=== PATIENT | female | born 1940 | race Caucasian/White ===

== ENCOUNTER 2020-04-22 09:01 | Outpatient (CLI) | payer MEDICARE, SELFPAY ==
--- NOTE | 2020-04-22 09:14 | MM_ITS ---
WS: [id number] BILATERAL DIGITAL DIAGNOSTIC MAMMOGRAM MAMMOGRAPHY WITH CAD CLINICAL INFORMATION: HX OF BREAST CA HISTORY: COMPARISON: TECHNIQUE: Bilateral CC, MLO, and ML views. FINDINGS: Scattered fibroglandular densities bilaterally. Stable ovoid nodular density or intramammary lymph n ode right axillary tail. Stable trabecular thickening left breast likely due to prior radiation thera py. No suspicious focal mass, asymmetry, calcifications, or architectural distortion. No evidence of maday gnancy. MM/[place] [id number] IMPRESSION: BI-RADS: 2-Benign FOLLOW UP: 1 Year Follow-up Recommend return to annual diagnostic mammography.
== END 2020-04-22 09:02 | disposition home or self-care (01) ==
LOC: RADSHAW 09:08
PROVIDERS: PCP Family Medicine; Visit Provider Internal Medicine Hematology & Oncology
DX: Z85.3 Personal history of malignant neoplasm of breast (principal)
CPT/HCPCS: 77066

== ENCOUNTER 2020-04-26 09:16 | Outpatient (CLI) | payer MEDICARE, SELFPAY ==
--- NOTE | 2020-04-26 10:17 | ONC FU_ITS ---
Dr. Finley follow up note Patient: Stephanie Sin Unit #: [id number]: [id number] Dicatated By: Holland Finley M.D.Date of Visit:Apr 26, 2020 Onc Med Follow-up/Prog Note History of Present Illness: Mrs. 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 Patient tolerated procedure well. As per patient her routine follow-up mammogram showed an abnormal area for which on 03/16/2018 she underwent biopsy which was suspicious for intraductal papillary carcinoma No history of postmenopausal hormone or contraceptive use, she had 6 pregnancies 5 live births Status post postlumpectomy radiation therapy finished on 07/04/2018 Started on Arimidex/vitamin D/calcium for 5 years on 05/09/2018 Follow-up mammogram done on 06/20/2019 showed BI-RADS 2-benign Follow-up mammogram done on April 22, 2020 showed BI-RADS 2, benign Came for follow-up, denies any specific complaints except generalized weakness and fatigue, but no fever chills, no nausea or vomiting, no diarrhea or constipation, no weight loss rather gained . No new bony pains, no jaundice, no new musculoskeletal pain tolerating Arimidex well . Medications: Acidophilus Capsule Oral, Anastrozole 1 (1 mg) Tablet Oral daily, B-12 3 (1000 mcg) Tablet Oral daily, B-50 1 Tablet Oral daily, C 500 Tablet Oral, Calcium & Magnesium Carbonates Tablet Oral, Felodipine ER 1 Tablet (of 5 mg) Tablet SR 24 HR Oral b.i.d., High Energy Multi-Vitamin Capsule, Labetalol HCl 1 Tablet (of 200 mg) Oral b.i.d., Losartan Potassium 1 Tablet (of 100 mg) Oral daily Allergies: antidepressants, latex, Librium, and Penicillins. Review of Systems: Constitutional - Appetite is good and weight is stable. No fever, chills, hot flashes, or night sweats. Energy level is still poor, ENMT - No sinus congestion/drainage. No mouth sores. No sore throat or difficulty swallowing, Hematologic/Lymphatic - No abnormal bruising or bleeding, Respiratory - Patient has some shortness of breath with exertion. No cough. No pleuritic pain or hemoptysis, Cardiovascular - No angina pain. No palpitations, Gastrointestinal - No nausea or vomiting. No heartburn or acid reflux. No diarrhea or constipation. No blood in the stool or black stools, Genitourinary (F) - No dysuria or hematuria. No urinary frequency. No urgency or incontinence, Musculoskeletal - No joint or bone pain, Neurologic - No headache, occasional dizziness. No numbness/paresthesias or other focal neurologic symptoms, Psychiatric - No anxiety or depression. No insomnia. Vital Signs: Performed on Apr 26, 2020 09:32 Height - 60.00 in Weight - 168.2 lbs (LOW) BSA - 1.73 sq.m BMI - 32.85 (HIGH) Temperature - 98.9 F (HIGH) Pulse - 71 /min Respiration - 15 /min BP - 156/81 mm(hg) (HIGH) O2 Sat - 94 % (LOW) Pain - 0 Performance Status: 0 - Fully active, able to carry on all predisease activities without restrictions. (ECOG) Physical Examination: Respiratory - Lungs are clear to auscultation, Cardiovascular - Regular rate and rhythm of heart, Gastrointestinal - Soft, bowel sounds present, no rebound tenderness, Extremities - No visible edema or rash. Lab/Imaging: Most recent lab results are not available for this patient. 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 Final pathology shows DCIS 0.5 x 0.4 cm, cribriform/papillary histologic growth pattern margins clear but inferior margin within 1 mm ER 98%, AZ 97% Tis (DCIS),N0 stage 0 Started on Arimidex 1 mg daily for 5 years, on 05/09/2018 s/p postlumpectomy radiation therapy finished on 07/04/18 Plan: Discussed with patient regarding her concern questions, patient is tolerating adjuvant therapy with Arimidex well but her concern is about persistent generalized weakness and fatigue, could be due to Arimidex but most likely it appears, considering her weight and height she may have sleep apnea, she was recommended sleep study but she declined as she may benefit from CPAP machine. She was advised to discuss with PMD regarding sleep study, patient said she would think about. And her follow-up mammogram showed no new abnormality. She return to clinic in 6 months with CBC CMP Signed By: Holland Finley M.D. <<Signature on File>>
== END 2020-04-26 09:17 | disposition home or self-care (01) ==
LOC: ONCMED 09:23
PROVIDERS: PCP Family Medicine; Visit Provider Internal Medicine Hematology & Oncology
DX: C50.112 Malignant neoplasm of central portion of left female breast (principal); R53.1 Weakness; R53.83 Other fatigue; Z17.0 Estrogen receptor positive status [ER+]; Z79.811 Long term (current) use of aromatase inhibitors
CPT/HCPCS: 99214

== ENCOUNTER 2020-06-28 08:21 | Outpatient (CLI) | payer MEDICARE, SELFPAY ==
--- NOTE | 2020-06-28 08:27 | CT_ITS ---
WS: [id number] CT ABDOMEN AND PELVIS WITH CONTRAST HISTORY: right upper quadrant pain and hernia TECHNIQUE: Imaging performed of the abdomen and pelvis with IV contrast. Single phase imaging of the abdomen. Coronal and sagittal reformats are submitted. All CT scans at [facility] use at least one of these dose optimization techniques: automated exposure control; mA and/or kV adjustment per patient size (includes targeted exams where dose is matched to clinical indication); or iterativ e reconstruction. IV CONTRAST: Omnipaque 300; 95 mL IV. Oral contrast: Yes. DLP: 1020.66 mGycm COMPARISON: None available. Lower thorax: Lung bases are clear. Mild cardiomegaly. Small hiatal hernia. Liver/biliary system: Normal size liver. 6 mm cyst along the surface of the LEFT lobe. No bile duct d ilatation. Gallbladder: Normal. No gallstones or wall thickening. No pericholecystic fluid. Pancreas: Normal size pancreas. Head and uncinate process of the pancreas are due to displaced anteri ariane due to intra-abdominal contents being displaced to the hernia sac. Pancreas remains within the a bdominal cavity. Spleen: Normal. Adrenal glands: Normal. Right kidney: Large simple cyst anterior upper RIGHT kidney measures 8.1 x 7.7 cm. No nodularity or e nhancement. Left kidney: Normal. Aorta: Mild atherosclerosis with no aneurysm. Lymphadenopathy: None. Free fluid: None. GI tract and abdominal wall: Large ventral abdominal wall hernias. Large ventral abdominal wall herni a at the midline contains the antrum of the stomach, colon and small bowel. Appendix is probably with in this hernia sac but cannot be identified. No ischemic changes are evident. The orifice of the jian ia at the abdominal wall is 7.4 cm. There is an additional ventral abdominal wall hernia more inferio r with an orifice of 2.0 cm. This hernia also contains colon and omental fat. No ischemic changes or strangulation. The RIGHT colon is contained within the larger hernia is and majority of the transver se colon is also within the hernia sacs. Pelvis: Normal. Bones: LEFT convex curvature of the lumbar spine. Degenerative disc space narrowing and desiccation. No osteoblastic or osteolytic disease. CT/CT abdomen pelvis w con* [id number] IMPRESSION: 1. Large ventral abdominal wall hernias x2. The larger more superior hernia co ntains stomach, small bowel and colon. No ischemic changes or incarceration. 2. Smaller ventral abdominal wall hernia contains colon. 3. Large RIGHT hepatic cyst.
[2020-06-28] MEDS: iohexol 300 mg/mL 50 mL Btl PO (09:21)
[2020-06-28 09:50] LABS: Blood Urea Nitrogen 12 mg/dL (8-23)
[2020-06-28] MEDS: iohexol 300 mg/mL 100 mL Btl IV (10:23)
== END 2020-06-28 08:22 | disposition home or self-care (01) ==
PROVIDERS: PCP Family Medicine; Visit Provider Surgery
DX: K43.9 Ventral hernia without obstruction or gangrene (principal); R10.11 Right upper quadrant pain; K76.89 Other specified diseases of liver
CPT/HCPCS: 74177; 82565; 84520; Q9967

== ENCOUNTER 2020-07-19 07:34 | Outpatient (CLI) | payer MEDICARE, SELFPAY ==
--- NOTE | 2020-07-19 08:00 | US_ITS ---
WS: [id number] RIGHT UPPER QUADRANT ULTRASOUND HISTORY: abdominal pain COMPARISON: None available. Liver: 17.1 cm in length. Mildly enlarged liver. Mild hepatic steatosis. No mass or bile duct dilatat ion. Gallbladder: Normally distended gallbladder with no stones or wall thickening. CBD: 0.4 cm Pancreas: Poorly visualized. Right kidney: 9.4 cm in length. Normal size kidney. There is a large minimally complex cyst associate d with the anterior kidney measuring 9.6 x 7.8 x 7.8 cm. Aorta and IVC: Unremarkable abdominal aorta and IVC. No ascites. US/US gall bladder [id number] IMPRESSION: 1. Normal gallbladder. 2. Large minimally complex RIGHT renal cyst. 3. Mild hepatic steatosis and hepatomegaly.
== END 2020-07-19 07:35 | disposition home or self-care (01) ==
PROVIDERS: PCP Family Medicine; Visit Provider Surgery
DX: R10.9 Unspecified abdominal pain (principal); Q61.01 Congenital single renal cyst; K76.0 Fatty (change of) liver, not elsewhere classified; R16.0 Hepatomegaly, not elsewhere classified
CPT/HCPCS: 76705; 87635

== ENCOUNTER 2020-07-23 05:53 | Day surgery (SDC) | payer MEDICARE, SELFPAY ==
[2020-07-19 12:33] VITALS: BMI 31.8
[2020-07-23 06:05] VITALS: BP 141/76; PULSE 74; RESP 18; TEMP 37; O2SAT 90
[2020-07-23] MEDS: sodium chloride 0.9% 500 ML 999 ML IV (06:25)
--- NOTE | 2020-07-23 06:28 | P.ANESASSM_ITS ---
Pre-Anesthetic Assessment Pre-Anesthetic Assessment: Height/Weight: Height 1.52 m Weight 73.936 kg Temp Pulse Resp BP Pulse Ox 98.6 F 74 18 141/76 90 07/23/20 06:05 07/23/20 06:05 07/23/20 06:05 07/23/20 06:05 07/23/20 06:05 Preop Diagnosis: screening Proposed Procedure: Operation Date: 07/23/20 07:00 Proposed Procedures p Colonoscopy 98323 Z12.11(Not Applicable) - Toan Mosley MD Familial anesthetic complications: NOne Was Beta Angela taken within 24 hours: Yes Last intake: Intake Last Liquid Date 07/22/20 Last Liquid Time 20:00 Last Solid Date 07/21/20 Last Solid Time 20:00 Social: Social History: No alcohol and No tobacco Exam: Pre-Anes Outpt Exam: alert, oriented x 3, clear to auscultation bilaterally and regular rate & rhythm Additional Exam Findings (including area of procedure): light murmur Airway: Cervical ROM: WNL MP: 4 Dentition: Full and Other (decayed) CV/HEM: CV/HEM: HTN Comments: Was told she had 2 leaky valves in her 60s b ut that they weren't bad - no episodes of syncope, chest pain, or SOB Anesthetic Plan: ASA status: 2 PFSH Anesthesia PFSH: Medical History Anemia Breast cancer, left H/O nonmelanoma skin cancer Hyperlipidemia Hypertension Surgical History H/O basal cell carcinoma excision H/O partial mastectomy left History of tonsillectomy Family History Grandmother Cancer breast Mother Cancer ovarian Father Hypertension Stroke Denies family history of Anesthesia complication Bleeding disorder Social History Smoking and tobacco status: never smoked Alcohol intake: never Lives independently: Yes Marital status: Single Current occupational status: retired History of recent travel: No Data Anesthesia Cardiac Studies: No Data to Display
[2020-07-23 07:22] VITALS: BP 128/61; PULSE 55; RESP 16; TEMP 36.6; O2SAT 96
--- NOTE | 2020-07-23 07:25 | W.PM.OPSUD ---
Surgery/Procedure H&P Update DATE OF PROCEDURE: July 23, 2020 DATE H&P PERFORMED: 07/02/20 H&P UPDATE INFORMATION: I have reviewed H&P completed within last 30 days, I have examined patient prior to procedure and No changes to prior documentation PREOP DIAGNOSIS: screening PLANNED PROCEDURE: Operation Date: 07/23/20 07:00 Proposed Procedures p Colonoscopy 39928 Z12.11(Not Applicable) - Toan Mosley MD
[2020-07-23 07:39] VITALS: BP 148/70; PULSE 55; RESP 18; O2SAT 96
--- NOTE | 2020-07-23 08:06 | ANE.PACU2 ---
Inpatient post-anesthesia follow up: Airway intact: Yes Vital signs: Temperature 97.8 F Pulse Rate 55 Respiratory Rate 18 Blood Pressure 148/70 Pulse Oximetry 96 Oxygen Delivery Me thod Room Air Oxygen Flow Rate 2 Fraction of Inspir ed Oxygen Hydration adequate: Yes Nausea and vomiting: No Pain level: 2 Mental status: Baseline
== END 2020-07-23 07:58 | disposition home or self-care (01) ==
PROVIDERS: PCP Family Medicine; Visit Provider Surgery
PROC: 0DJD8ZZ Inspection of Lower Intestinal Tract, Via Natural or Artificial Opening Endoscopic (ICD-10-PCS; CPT 45378; principal; 2020-07-23 07:00)
DX: Z12.11 Encounter for screening for malignant neoplasm of colon (principal); D12.3 Benign neoplasm of transverse colon; I10 Essential (primary) hypertension; Z85.3 Personal history of malignant neoplasm of breast; E78.5 Hyperlipidemia, unspecified
CPT/HCPCS: 12345; 45380; 88305; J2704; J7040

== ENCOUNTER 2020-07-29 07:53 | Outpatient (CLI) | payer MEDICARE, SELFPAY ==
--- NOTE | 2020-07-29 08:30 | FL_ITS ---
WS: [id number] INDICATION: Incomplete colonoscopy TECHNIQUE: Single contrast barium enema FINDINGS: Comparison CT abdomen pelvis June 28, 2020. Exam is somewhat limited due to large vent ral abdominal wall hernia with overlapping bowel Tortuous sigmoid colon. Bilobed ventral abdominal wall hernia containing large and small bowel. Taper ed narrowing involving the colon at the area of herniation in the right side of the abdomen. Delayed contrast transit through the area of stricture. Contrast transits this area after 2 to 3 minutes and additional barium. Remainder of the colon distal to the stricture fills normally. Normal cecum. No other areas of strict ure or obstruction. No suspicious filling defects. Normal postevacuation images. Osteopenia. Lumbar scoliosis convex left. FL/FL barium enema [id number] IMPRESSION: 1. Somewhat limited examination due to large ventral abdominal wall hernia con taining small and large bowel. 2. Moderate stricture involving the right colon with delayed contrast transit which passes after 2 to 3 minutes and additional barium. 3. Normal filling of the remainder of the colon and cecum in the hernia. 4. Otherwise no filling defects or areas of stricturing.
== END 2020-07-29 07:54 | disposition home or self-care (01) ==
PROVIDERS: PCP Family Medicine; Visit Provider Surgery
DX: R93.3 Abnormal findings on diagnostic imaging of other parts of digestive tract (principal); K56.699 Other intestinal obstruction unspecified as to partial versus complete obstruction
CPT/HCPCS: 74270

== ENCOUNTER 2020-08-06 07:55 | Outpatient (CLI) | payer MEDICARE, SELFPAY ==
--- NOTE | 2020-08-06 08:01 | NM_ITS ---
WS: [id number] NUCLEAR MEDICINE HIDA SCAN CLINICAL INFORMATION: right upper quadrant pain TECHNIQUE: Following intravenous administration of 8.4 mCi of technetium 99m mebrofenin, images of th e abdomen were obtained over the course of 60 minutes. Next, gallbladder ejection fraction was determ ined by obtaining preprandial and one-hour postprandial images of the gallbladder following oral deann stion of Ensure. COMPARISON: None. FINDINGS: Normal hepatic uptake at 5 minutes. Hepatomegaly. Gallbladder is visualized within 15 minutes. Normal common bile duct. No evidence of acute cholecystitis. Small bowel activity is visualized. No evidenc e of choledocholithiasis. Gallbladder ejection fraction 29% consistent with impaired emptying. Findings compatible with gallbla dder dysfunction and suspicious for chronic cholecystitis NM/NM hepatobiliary w phar* [id number] IMPRESSION: 1. Decreased gallbladder ejection fraction suspicious for gallbladder dysfunct ion and/or chronic cholecystitis.
== END 2020-08-06 07:56 | disposition home or self-care (01) ==
LOC: NM 07:57
PROVIDERS: PCP Family Medicine; Visit Provider Surgery
DX: R10.11 Right upper quadrant pain (principal)
CPT/HCPCS: 78227; A9537

== ENCOUNTER → 2020-10-16 10:24 | Outpatient (BNVA) | payer MEDICARE, SELFPAY | PROVIDERS: PCP Family Medicine; Visit Provider Surgery | DX: Z11.59 Encounter for screening for other viral diseases (principal); K43.9 Ventral hernia without obstruction or gangrene | CPT/HCPCS: 87635 ==

== ENCOUNTER 2020-10-21 10:32 | Inpatient (IN) | payer MEDICARE, SELFPAY ==
[2020-10-16 08:48] VITALS: BMI 32.2
[2020-10-16 09:58] LABS: Basophils # 0.1 10^3/uL (0.0-0.1); Basophils % 0.7 %; Eosinophils # 0.3 10^3/uL (0.0-0.8); Eosinophils % 3.7 %; Hematocrit 42.4 % (37.0-47.0); Hemoglobin 13.1 g/dL (11.5-15.3); Lymphocytes # 1.5 10^3/uL (0.8-4.8); Lymphocytes % 20.1 %; Mean Corpuscular HGB Conc 30.9 g/dL (30.0-36.0); Mean Corpuscular Hemoglobin 28.4 pg (28.0-34.0); Mean Corpuscular Volume 91.8 fL (81-99); Mean Platelet Volume 12.2 fL (7.4-10.4); Monocytes # 0.5 10^3/uL (0.2-0.9); Monocytes % 6.3 %; Neutrophils # 5.06 10^3/uL (1.8-7.7); Neutrophils % 68.9 %; Nucleated Red Blood Cells % 0 %; Platelet Count 231 10^3/cmm (130-400); Red Blood Count 4.62 10^6/uL (4.1-5.3); Red Cell Distribution Width 12.8 % (12.1-15.1); White Blood Count 7.3 10^3/uL (4.0-10.0)
[2020-10-16 10:23] LABS: Anion Gap 12.1 (5-19); Blood Urea Nitrogen 18 mg/dL (8-23); Calcium 9.8 mg/dL (8.5-10.5); Carbon Dioxide 32 mmol/L (22-29); Chloride 97 mmol/L (98-107); Glucose 109 mg/dL (65-115); Osmolality Calculated 286 mOsm/kg (285-295); Potassium 4.1 mmol/L (3.5-5.1); Sodium 137 mmol/L (136-145)
--- NOTE | 2020-10-16 11:54 | P.ANESASSM_ITS ---
Pre-Anesthetic Assessment Pre-Anesthetic Assessment: Height/Weight: Height 1.52 m Weight 74.843 kg Preop Diagnosis: screening Proposed Procedure: Operation Date: 10/21/20 07:00 Proposed Procedures p Cholecystectomy Open [id number] 92861 K810.20 K43.2(Not Applicable) - Toan Mosley MD s open Incisional Hernia Repair w/ component separation and Mesh(Not Applicable) - Toan Mosley MD Was Beta Angela taken within 24 hours: Yes Social: Social History: No alcohol and No tobacco Exam: Pre-Anes Outpt Exam: alert, oriented x 3, clear to auscultation bilaterally and regular rate & rhythm Airway: Submandibular: WNL Cervical ROM: WNL MP: 2 Dentition: Full Pulmonary: Pulmonary: None reported CV/HEM: CV/HEM: HTN : : None reported Hepatic: Hepatic: None reported GI: GI: GERD Metabolic: Metabolic: None reported Musc/skel: Musc/skel: None reported Neuropsych: Neuropsych: None reported Anesthetic Plan: ASA status: 3 Anesthesia: General and Regional (specify below) Other: Discussed possibility of epidural for post op pain vs TAP blk. Risk of > 500 ml blood loss (7ml/kg in children): No PFSH Anesthesia PFSH: Medical History (Updated 09/10/20 @ 09:30 by Bj Pozo MD) Anemia Breast cancer, left H/O nonmelanoma skin cancer Hyperlipidemia Hypertension Renal cyst Surgical History H/O basal cell carcinoma excision H/O partial mastectomy left History of colonoscopy with polypectomy (07/23/20) History of tonsillectomy Family History Grandmother Cancer breast Mother Cancer ovarian Father Hypertension Stroke Denies family history of Anesthesia complication Bleeding disorder Social History Smoking and tobacco status: never smoked Alcohol intake: never Lives independently: Yes Marital status: Single Current occupational status: retired History of recent travel: No Data Anesthesia CBC & Chem 7: 10/16/20 09:20 10/16/20 09:20 Other Labs: Laboratory Results - last 48 hr 10/16/20 10/16/20 09:20 09:20 WBC 7.3 RBC 4.62 Hgb 13.1 Hct 42.4 MCV 91.8 MCH 28.4 MCHC 30.9 RDW 12.8 Plt Count 231 MPV 12.2 H Neut % (Auto) 68.9 Lymph % (Auto) 20.1 [place] % (Auto) 6.3 Eos % (Auto) 3.7 Baso % (Auto) 0.7 Neut # (Auto) 5.06 Lymph # (Auto) 1.5 [place] # (Auto) 0.5 Eos # (Auto) 0.3 Baso # (Auto) 0.1 Nucleated RBC % (auto) 0 Nucleated RBCs # 0.0 Sodium 137 Potassium 4.1 Chloride 97 L Carbon Dioxide 32 H Anion Gap 12.1 BUN 18 Creatinine 0.6 GFR Calculation Not Reportable Glucose 109 Calculated Osmolality 286 Calcium 9.8 Cardiac Studies: No Data to Display
--- NOTE | 2020-10-16 13:34 | ECG_ITS ---
[facility] Test Date: 2020-10-16 Pat Name: Stephanie Sin Department: Room: Gender: Female Hide Spreader: : 1940 Requested By: Toan Mosley Order Number: [id number] Williams MD: Mali Deluca M.D. Measurements Intervals [place] Rate: 64 P: 63 IN: 212 QRS: 18 QRSD: 89 T: 53 QT: 425 QTc: 439 Interpretive Statements SINUS RHYTHM WITH FIRST DEGREE AV BLOCK Compared to ECG 04/15/2018 10:40:03 Sinus bradycardia no longer present Electronically Signed On 10-16-2020 19:22:[address]PRE[address] by Mali Deluca M.D. [id number] f
[2020-10-21] VITALS (26 sets, daily range): BP systolic 83–171; BP diastolic 42–107; PULSE 64–85; RESP 16–22; TEMP 36.2–37.2; O2SAT 89–98
--- NOTE | 2020-10-21 07:41 | P.HP_ITS ---
Providers/Chief Complaint Primary Care Provider: Mabel Cid MD Chief Complaint: cholecystectomy and hernia repair request dr quiles History of Present Illness Stephanie Sin is a 80 year old female evaluated early September 2020 for large right renal cyst and patient with a huge anterior abdominal wall hernia scheduled to undergo repair. The concern was that the volume of the cyst would be taking up a lot of room making it more difficult to restore hernia contents back into the abdominal cavity. Dr. Mosley requested treatment of the cyst to help increase capacity of abdominal cavity. All of this was reviewed with the patient in detail. She agreed to the plan. We reviewed sequencing and he is planning on performing abdominal exploration, church of the hernia contents back into abdominal cavity and cyst treatment. Anticipate cyst wall excision over aspiration with marsupialization as needed. Review of Systems Const: Denies: fever(s), chills or fatigue Eyes: Denies: change in vision or decreased night vision Card: Denies: chest pain Resp: Denies: dyspnea or non-productive cough GI: Denies: abdominal pain or constipation : Denies: urinary frequency or urinary urgency Musc: Denies: neck pain, back pain or joint pain Skin/Breast: Denies: rash or dry skin Psych: Denies: anxiety, depression or suicidal ideation [place]/Lymph: Denies: easy bruising or easy bleeding Medications/Allergies Home Medications Medication Instructions Recorded Confirmed Last Taken Type anastrozole 1 mg tablet 1 mg PO DAILY 04/29/20 10/21/20 10/20/20 History calcium carbonate 600 mg calcium 1,200 mg PO DAILY tab 04/29/20 10/21/20 10/20/20 History (1,500 mg) tablet felodipine 5 mg tablet,extended 10 mg PO DAILY tab 04/29/20 10/21/20 10/20/20 History release 24 hr labetalol 200 mg tablet 200 mg PO BID 04/29/20 10/21/20 10/21/20 History losartan 100 mg tablet 100 mg PO DAILY 04/29/20 10/21/20 10/21/20 History magnesium 250 mg tablet 250 mg PO DAILY 04/29/20 10/21/20 10/20/20 History multivitamin 1 tab PO DAILY 04/29/20 10/21/20 10/20/20 History vitamin B complex 1 tab PO DAILY 04/29/20 10/21/20 10/20/20 History pantoprazole 40 mg tablet,delayed See Rx Instructions .ROUTE 09/05/20 10/21/20 10/20/20 Rx release .COMPLEX #60 tab Allergies Allergy/AdvReac Type Severity Reaction Status Date / Time chlordiazepoxide Allergy ALGY-Anaphy Verified 10/15/20 16:24 [From Librium] laxis Penicillins Allergy ALGY-Rash Verified 10/15/20 16:24 PFSH Acute PFSH: Medical History (Updated 10/21/20 @ 07:46 by Bj Pozo MD) Anemia Breast cancer, left H/O nonmelanoma skin cancer Hyperlipidemia Hypertension Renal cyst Surgical History H/O basal cell carcinoma excision H/O partial mastectomy left History of colonoscopy with polypectomy (07/23/20) History of tonsillectomy Family History Grandmother Cancer breast Mother Cancer ovarian Father Hypertension Stroke Denies family history of Anesthesia complication Bleeding disorder Social History Smoking and tobacco status: never smoked Alcohol intake: never Lives independently: Yes Marital status: Single Current occupational status: retired History of recent travel: No Physical Exam Const: COMMON NORMALS: no acute distress and patient oriented x3 GENERAL APPEARANCE: cooperative, comfortable and well kempt NUTRITIONAL APPEARANCE: obese morbidly obese HENMT: HEAD & SCALP: normocephalic and atraumatic Eye: COMMON NORMALS: conjunctivae normal and no scleral icterus Neck/C-Spine: COMMON NORMALS: full ROM GENERAL: Yes normal visual inspection Resp: COMMON NORMALS: normal respiratory effort EFFORT & INSPECTION: No labored and No Actively coughing Extremity: COMMON NORMALS: no clubbing, cyanosis or edema Neuro: COMMON NORMALS: no focal motor deficits SENSORIUM/ORIENTATION: Yes alert Psych: COMMON NORMALS: mental status grossly normal APPEARANCE: Yes grossly normal and Yes well kempt ATTITUDE: Yes calm and Yes engaged Skin: COMMON NORMALS: no rashes or lesions noted and no jaundice Data : 10/16/20 09:20 10/16/20 09:20 A&P Assessment and plan (1) Renal cyst: Space-occupying right renal cyst the patient with huge ventral hernia with most of the bowel contents in the hernia. Request was made for cyst excision to allow more space intra-abdominally for hernia contents to be restored. Status: Acute Attestations Medical Necessity Statement*: See attending. Coding Level of Care Code Acute Primary Teaching Assistant for g Fwd Exam Comprehensive Diagnoses Renal cyst N28.1
[2020-10-21] MEDS: sodium chloride 0.9% 1,000 ML 30 ML IV (10:00)
--- NOTE | 2020-10-21 10:20 | W.PM.OPSUD ---
Surgery/Procedure H&P Update DATE OF PROCEDURE: October 21, 2020 DATE H&P PERFORMED: 10/15/20 H&P UPDATE INFORMATION: I have reviewed H&P completed within last 30 days, I have examined patient prior to procedure and No changes to prior documentation PREOP DIAGNOSIS: ventral hernia PLANNED PROCEDURE: Operation Date: 10/21/20 10:55 Proposed Procedures p Cholecystectomy Open [id number] 02979 K810.20 K43.2(Not Applicable) - Toan Mosley MD s open Incisional Hernia Repair w/ component separation and Mesh, abd wall reconstruction(Not Applicable) - Toan Mosley MD
[2020-10-21] MEDS: midazolam 1 mg/mL INJ 2 mL 2 MG IVP (10:45)
[2020-10-21] MEDS: fentaNYL 50 mcg/mL INJ 2mL IVP ×2 (10:47→16:53)
--- NOTE | 2020-10-21 10:59 | P.ANESUD_ITS ---
Pre-Anesthetic Update Pre-Anesthetic Assessment: Date of Surgery/Procedure: 10/21/20 Preop Karen gnosis: ventral hernia Proposed Procedure: Operation Date: 10/21/20 10:55 Proposed Procedures p Cholecystectomy Open [id number] 19637 K810.20 K43.2(Not Applicable) - Toan Mosley MD s open Incisional Hernia Repair w/ component separation and Mesh, abd wall reconstruction(Not Applicable) - Toan Mosley MD Any changes to Pre-Anesthetic Assessment?: No Last Intake: Intake Last Liquid Date 10/20/20 Last Liquid Time 21:00 Last Solid Date 10/18/20 Last Solid Time 18:00 Vitals: Temperature 97.6 F 10/21/20 09:51 Pulse Rate 68 10/21/20 09:51 Respiratory Rate 18 10/21/20 09:51 Blood Pressure 171/82 10/21/20 09:51 Blood Pressure Jossie n 111 10/21/20 09:51 Pulse Oximetry 96 10/21/20 09:51 Oxygen Delivery Me thod 10/21/20 09:56 Exam: Pre-Anes Outpt Exam: alert, oriented x 3, clear to auscultation bilaterally and regular rate & rhythm Cardiac Studies: No Data to Display
--- NOTE | 2020-10-21 10:59 | ANES.PROC ---
Anesthesia Procedures Procedure/Date: 10/21/20 Epidural: Time Out Performed: Yes Consents Signed: Procedure Consent, NPO Consent and No Consent Needed Consent: requested by attending/covering physician Thoracic Level: T9-T10 Epidural position: sitting Epidural procedure: sterile prep of area, 1% lidocaine to numb the area, 18 g needle, negative for paresthesia passed, neg for paresthesia, test dose given, 1.5% xylocaine 1:200k epi (3 cc), no systemic response and sterile dressing applied Additional Comments: HAYDEN at 6 cm threaded to 12 cm
[2020-10-21] MEDS: vancomycin 1,000 MG in sodium chloride 0.9% 250 ML 250 MG IV ×2 (11:00→23:59)
--- NOTE | 2020-10-21 11:50 | SUR.OPER ---
Called and notified daughter of surgical start
[2020-10-21] MEDS: sodium chloride 0.9% SDV 10 mL 20 ML (11:52)
--- NOTE | 2020-10-21 13:01 | SUR.OPER ---
daughter updated on surgical progress
--- NOTE | 2020-10-21 14:14 | SUR.OPER ---
Called and updated Daughter on surgical progress.
--- NOTE | 2020-10-21 16:08 | P.OP_ITS ---
Operative Report Date of procedure: October 21, 2020 Pre-op Diagnosis: 1. Incarcerated ventral hernia containing stomach, small bowel, right colon 2. Biliary dyskinesia 3. 9 cm right renal cyst Post-op Diagnosis: 1. Incarcerated ventral hernia containing stomach, small bowel, right colon and transverse colon 2. Biliary dyskinesia 3. Incidental appendectomy 4. 9 cm right renal cyst Procedure Done: Exploratory laparotomy with lysis of adhesions Bilateral myofascial advancement flap using bilateral anterior component separation Open cholecystectomy Open incidental appendectomy Cecopexy Open incisional hernia repair Placement of ventralight 25 x 22 cm mesh Excision of right renal cyst by Dr. Pozo Pathology: Hernia sac Gallbladder Right renal cyst wall and aspirate Surgeon: Toan Mosley Anesthesia: General Condition: stable Disposition: PACU Brief History: This is a 80-year-old female with postprandial right upper quadrant pain noted on worked up to have biliary dyskinesia. Patient also had a large incarcerated ventral hernia that she states she developed after her last 50 or so years ago. Patient states that the hernia is getting worse and she would like to have it repaired. I had extensive discussion with the patient about the risks, benefits considering the fact that she 80 years old and this is a large chronic incarcerated ventral hernia. Procedure: The patient was taken to the operating room and intubated under general anesthesia after IV antibiotic had been administered. A Cagle catheter was placed and the abdomen was prepped and draped in a sterile manner. An NG tube was placed. Patient had an epidural catheter placed preoperatively. Using a 10 blade a midline laparotomy incision was made, subcutaneous tissue divided using electrocautery and the hernia sac to the right of the midline was identified. There was a large hernia superior to the umbilicus and a smaller periumbilical hernia. The linea alba was divided to enter the peritoneal cavity. Large hernia containing distal stomach, small bowel, ascending colon, proximal transverse colon was incarcerated within the large hernia sac. Patient also had umbilical hernia containing small bowel loop and omentum. The contents of the hernia sac was freed up by dividing the ring. There are multiple adhesions between the stomach, small bowel loops and the colon. The 2 hernia sacs were excised from the surrounding subcutaneous tissue and the anterior rectus sheath and sent to pathology. At this point the small bowel and ascending and transverse colon was exteriorized. The small bowel was examined from the ligament of Treitz and about 20 cm from the cecum, there were loops of small bowel adherent to the mesentery of the mid transverse colon as well as omentum. Lysis of adhesions was performed for about 15 minutes until the small bowel was completely freed up, there are no serosal tears noted. The right colon was mobile and was within the hernia sac and did not have any significant attachments to the posterior abdominal wall. Dr. Pozo joined me at this point with the case and performed excision of the right renal cyst. Please refer to his note for details. I decided to proceed with incidental appendectomy given the extensive abdominal wall repair that was planned. The mesoappendix was divided using electrocautery and the appendix was clamped and a 2-0 silk tie was placed, the appendix divided and 2-0 pursestring suture was placed to invert the appendiceal stump. The fundus of the gallbladder was retracted superiorly, the infundibulum was retracted laterally and the peritoneum overlying the Calot's triangle was opened medially and laterally using electrocautery until the cystic duct and the cystic artery was skeletonized. The gallbladder was then divided from the gallbladder fossa using electrocautery and top-down fashion. 3 separate 10 mm clips were placed in the cystic artery and cut leaving 2 clips on the remaining portion of the artery and 4 seperate 10 mm clips were placed on the cystic duct and divided leaving 3 clips in the remaining portion of the duct. The gallbladder was sent to pathology. An opening was made in the posterior rectus sheath extending from the costal margin to the inguinal ligament to release the posterior rectus sheath completely on both sides. The posterior rectus sheath was thinned out and I was therefore unable to mobilize it laterally to perform a complete transverse abdominis release. I therefore decided to proceed with anterior complete rele ase. About 2 cm from the linea semilunaris on the right side the external oblique aponeurosis was divided using electrocautery, division was extended up to the costal margin superiorly and inguinal ligament inferiorly resulting in creation of a myofascial advancement flap from the right side. On the left side, subcutaneous tissue was divided to access external oblique aponeurosis lateral to the linea semilunaris. 2 cm from the linea semilunaris external oblique aponeurosis was divided from the costal margin to the inguinal ligament resulting in creation of myofascial advancement flap on the left side. The cecum was previously within the hernia sac and therefore completely mobile with no significant adhesion to the posterior abdominal wall and therefore cecopexy was performed where interrupted 3-0 Vicryl sutures were placed to approximate cecum to the lateral abdominal wall to prevent future volvulus. The hernia defect was measured and a 25 x [address] mesh was selected and placed as an underlay. Transfascial sutures were placed along the edge of the mesh using 0 Prolene suture. Stab incisions were made bilaterally in the lower quadrant and a 10 flat JAZMYN drain was placed in the subcutaneous space. The fascia in the midline was closed using [id number] 0 Vicryl suture after the wound had been irrigated with saline. 20 cc of saline mixed with 20 cc of Exparel mixed with 20 cc of 0.5% Marcaine was infiltrated bilaterally around the incision. The skin was closed using absorbable oneida and the drain was sutured using 2-0 nylon suture. Sterile dressings were applied. The patient was extubated and transferred to recovery room with an epidural catheter, Cagle catheter, NG tube and [address]
--- NOTE | 2020-10-21 16:13 | PM.OP ---
Operative Report Date of procedure: October 21, 2020 Pre-op Diagnosis: Large right renal cyst Post-op diagnosis: same Procedure Done: Open excision of right renal cyst Specimens removed/disposition: Cyst sac Pathology: other (Cyst sac back) Surgeon: Sánchez Machine Tank Operator: Dimitri Anesthesia: General Estimated blood loss: Minimal Complications: None Findings: Kidney was easy to expose. Cyst excised down to approximately 2 mm to 3 mm of the parenchyma. No active bleeding. Condition: stable Disposition: other (Turned back over to Dr. Mosley for completion of his procedure) Brief History: Mrs. Sin is a very pleasant 80-year-old white female with a large ventral hernia with most of her bowel contents within the hernia. She also has had symptomatic gallbladder disease. In preparation and planning for hernia repair it was discovered on CT scan that she had a large renal cyst on the right and I was consulted for assistance with that intraoperatively. She was seen in clinic last month and these findings were discussed and plans were made for intervention today concurrently with Dr. Mosley's procedure. Procedure: The patient had already undergone a portion of Dr. Mosley's procedure. The bowel had been freed up from the hernia sac. Upon inspection the right renal cyst was easily identifiable in the right retroperitoneum. The colon was reflected by incising the posterior peritoneum near the white line of Toldt. The cyst was developed bluntly and sharply. Aspiration was conducted and the fluid sent for cytology. The cyst was then excised to close to the base of its junction with the kidney. Several millimeters of tissue was left. Electrocautery was utilized for this excision. The floor of the cyst was carefully inspected and there was no evidence of communication with the collecting system. There is no evidence of solid component or any other suspicious finding. Pinpoint cautery was utilized for several small bleeding areas. At this point the urologic portion of the procedure was completed and patient turned back over to Dr. Mosley for his remaining portion. She tolerated my procedure well without difficulty. No further specific follow-up is recommended.
--- NOTE | 2020-10-21 17:25 | ANE.PACU2 ---
Inpatient post-anesthesia follow up: Airway intact: Yes Vital signs: Temperature 98.2 F Pulse Rate 75 Respiratory Rate 16 Blood Pressure 115/77 Pulse Oximetry 96 Oxygen Delivery Me thod Nasal Cannula Oxygen Flow Rate 1.5 Fraction of Inspir ed Oxygen Hydration adequate: Yes Nausea and vomiting: No Pain level: 2 Mental status: Baseline Additional Comments: Candis
--- NOTE | 2020-10-21 17:40 | SUR.PHASEI ---
1739 175 mL removed from drains
--- NOTE | 2020-10-21 18:26 | PC.NURSE ---
dressing to left lower abdomen, JAZMYN Drain reinforced with ABD and foam tape. Right lower abdomen, JAZMYN Drain dressing C/D/I. Incision noted to abdomen C/D/I. Patient's blood pressure is currently 106/72, 96% on 1l NC, HR 74 and RR 16
[2020-10-21] MEDS: famotidine 20 mg/2 mL INJ IVP (18:37)
[2020-10-21] MEDS: D5-NS 0.45% + KCL 20 mEq 20 MEQ/1,000 ML BAG 100 MEQ IV (18:37)
[2020-10-21] MEDS: ketorolac 30 mg/mL INJ 15 MG IVP ×2 (18:37→23:45)
[2020-10-21] MEDS: lactulose oral liq 20 gm/30 mL UDC 10 GM PO (18:38)
--- NOTE | 2020-10-21 18:48 | XRR_ITS ---
PROCEDURE INFORMATION: Exam: XR Chest, 1 View Exam date and time: 10/21/2020 7:12 PM Age: 80 years old Clinical indication: Device placement; Ng tube; Prior surgery; Surgery type: Cholecystectomy and hernia repair; Additional info: Ng placement TECHNIQUE: Imaging protocol: XR of the chest Views: 1 view. COMPARISON: No relevant prior studies available. FINDINGS: Tubes, catheters and devices: NG tube is present it extends through the right mainstem bronchus into the right lower lobe Lungs: Right upper lobe interstitial congestion is seen. Pleural space: Unremarkable. No pleural effusion. No pneumothorax. Heart/Mediastinum: Unremarkable. No cardiomegaly. Bones/joints: Unremarkable. XR/XR chest 1V portable [id number] IMPRESSION: 1. NG tube extends into the right lower lobe through the right mainstem bronchus 2. Right upper lobe interstitial congestion.
[2020-10-21 18:57] LABS: Basophils # 0.1 10^3/uL (0.0-0.1); Basophils % 0.3 %; Hematocrit 34.8 % (37.0-47.0); Hemoglobin 10.6 g/dL (11.5-15.3); Lymphocytes % 5.7 %; Mean Corpuscular HGB Conc 30.5 g/dL (30.0-36.0); Mean Corpuscular Volume 95.3 fL (81-99); Mean Platelet Volume 12.5 fL (7.4-10.4); Monocytes # 1.5 10^3/uL (0.2-0.9); Monocytes % 8.4 %; Neutrophils # 14.81 10^3/uL (1.8-7.7); Neutrophils % 85.4 %; Nucleated Red Blood Cells % 0 %; Platelet Count 258 10^3/cmm (130-400); Red Blood Count 3.65 10^6/uL (4.1-5.3); Red Cell Distribution Width 12.9 % (12.1-15.1); White Blood Count 17.3 10^3/uL (4.0-10.0)
[2020-10-21 19:36] LABS: Alanine Aminotransferase 28 U/L (0-33); Albumin Level 2.9 g/dL (3.5-5.2); Alkaline Phosphatase 66 IU/L (35-105); Anion Gap 14.3 (5-19); Aspartate Amino Transferase 38 U/L (0-32); Blood Urea Nitrogen 16 mg/dL (8-23); Calcium 7.5 mg/dL (8.5-10.5); Carbon Dioxide 21 mmol/L (22-29); Chloride 110 mmol/L (98-107); Globulin 2.1 g/dL (1.3-4.6); Glucose 167 mg/dL (65-115); Osmolality Calculated 297 mOsm/kg (285-295); Potassium 4.3 mmol/L (3.5-5.1); Sodium 141 mmol/L (136-145); Total Bilirubin 0.4 mg/dL (0.15-1.2)
--- NOTE | 2020-10-21 19:45 | PC.NURSE ---
NG tube removed at tis time as it was noted to be in the right lung. Will attempt to replace.
[2020-10-21] MEDS: sodium chloride 0.9% 500 ML IV (20:11)
--- NOTE | 2020-10-21 20:14 | SUR.PHASEI ---
1600 PT PULLED NG TUBE OUT, DONOR PROCESSOR KATIE H. INSERTED TUBE, 15CC AIR INSERTED, I AUSCULTATED SOUNDS OVER GASTRIC AREA, O2 95%, PT TOLERATED WELL
--- NOTE | 2020-10-21 20:29 | SUR.PHASEI ---
1600 PT PULLED NG TUBE OUT, HAND TENNIS BALL COVERER KATIE H. INSERTED NG TUBE AND PUSHED 15CC OF AIR, I AUSCULTATED SOUNDS OVER GASTRIC AREA, O2 95%, PT TOLERATED WELL
[2020-10-21] MEDS: dextrose 5%-sod chloride 0.45% 1,000 ML 125 ML IV (21:15)
[2020-10-22] VITALS (16 sets, daily range): BP systolic 99–133; BP diastolic 58–78; PULSE 60–90; RESP 16–20; TEMP 36.6–37.2; O2SAT 16–98
--- NOTE | 2020-10-22 00:06 | PC.NURSE ---
Patient's blood pressure is 115/75. Ropivacaine restarted.
[2020-10-22 02:44] LABS: Anion Gap 11.9 (5-19); Blood Urea Nitrogen 20 mg/dL (8-23); Calcium 7.7 mg/dL (8.5-10.5); Carbon Dioxide 22 mmol/L (22-29); Chloride 111 mmol/L (98-107); Glucose 208 mg/dL (65-115); Osmolality Calculated 299 mOsm/kg (285-295); Potassium 4.9 mmol/L (3.5-5.1); Sodium 140 mmol/L (136-145)
[2020-10-22 02:45] LABS: Basophils # 0.1 10^3/uL (0.0-0.1); Basophils % 0.4 %; Hematocrit 32.7 % (37.0-47.0); Hemoglobin 9.9 g/dL (11.5-15.3); Lymphocytes # 1.1 10^3/uL (0.8-4.8); Lymphocytes % 5.9 %; Mean Corpuscular HGB Conc 30.3 g/dL (30.0-36.0); Mean Corpuscular Hemoglobin 28.8 pg (28.0-34.0); Mean Corpuscular Volume 95.1 fL (81-99); Mean Platelet Volume 12.8 fL (7.4-10.4); Monocytes # 1.5 10^3/uL (0.2-0.9); Monocytes % 7.8 %; Neutrophils # 16.01 10^3/uL (1.8-7.7); Neutrophils % 85.6 %; Nucleated Red Blood Cells % 0 %; Platelet Count 231 10^3/cmm (130-400); Red Blood Count 3.44 10^6/uL (4.1-5.3); Red Cell Distribution Width 13.2 % (12.1-15.1); White Blood Count 18.7 10^3/uL (4.0-10.0)
[2020-10-22] MEDS: ketorolac 30 mg/mL INJ 15 MG IVP ×3 (06:14→17:10)
[2020-10-22] MEDS: D5-NS 0.45% + KCL 20 mEq 20 MEQ/1,000 ML BAG 125 MEQ IV ×2 (06:14→14:47)
[2020-10-22] MEDS: famotidine 20 mg/2 mL INJ IVP ×2 (06:15→17:10)
[2020-10-22] MEDS: lactulose oral liq 20 gm/30 mL UDC 10 GM PO ×2 (06:15→17:11)
--- NOTE | 2020-10-22 06:59 | ANE.PACU2 ---
Inpatient post-anesthesia follow up: Airway intact: Yes Vital signs: Temperature 98.2 F Pulse Rate 75 Respiratory Rate 16 Blood Pressure 115/77 Pulse Oximetry 96 Oxygen Delivery Me thod Nasal Cannula Oxygen Flow Rate 1.5 Fraction of Inspir ed Oxygen Hydration adequate: Yes Nausea and vomiting: No Pain level: 1 Mental status: Baseline Additional Comments: No signs of infection at epidural site, patient currently without pain. Wasn't aware she had bolus button for use if needed.
[2020-10-22] MEDS: sodium chloride 0.9% 1,000 ML 999 ML IV ×3 (07:20→20:17)
[2020-10-22] MEDS: vancomycin 1,000 MG in sodium chloride 0.9% 250 ML 250 MG IV (10:10)
[2020-10-22] MEDS: losartan 50 mg Tablet 100 MG PO (10:10)
[2020-10-22] MEDS: labetalol 200 mg Tablet PO ×2 (10:10→17:11)
--- NOTE | 2020-10-22 11:06 | PC.NURSE ---
Notified Dr Mosley that patient has had no urine output after bolus. appeals writer explained the castillo was repositioned, replaced and flushed and still no urine output. Dr Mosley ordered 1L NS bolus and change maintenance fluids from 125ml/hr to 150ml/hr. Organizational Development Specialist put orders in.
--- NOTE | 2020-10-22 16:08 | PC.NURSE ---
Notified Dr Mosley that patient has no urine output.
--- NOTE | 2020-10-22 16:25 | PC.NURSE ---
Rcvd order from Dr Mosley for BMP. Senior Director Finance put order in for BMP.
--- NOTE | 2020-10-22 17:06 | PC.NURSE ---
rcvd order from Dr Mosley for CBC. senior underwriter put order in for CBC
[2020-10-22 17:11] LABS: Anion Gap 13.9 (5-19); Blood Urea Nitrogen 24 mg/dL (8-23); Calcium 7.7 mg/dL (8.5-10.5); Carbon Dioxide 17 mmol/L (22-29); Chloride 110 mmol/L (98-107); Glucose 164 mg/dL (65-115); Osmolality Calculated 290 mOsm/kg (285-295); Potassium 4.9 mmol/L (3.5-5.1); Sodium 136 mmol/L (136-145)
--- NOTE | 2020-10-22 18:08 | P.PN_ITS ---
Subjective Subjective: Interval history: She was hypotensive overnight required couple of liters of normal saline, her blood pressure is now more stable but she only had 200 cc urine output. Initially NG tube was noted to be in the bronchus and was removed after she had pulled it out previously in the PACU. Patient states the pain is reasonably controlled, no nausea or vomiting, passing flatus Vitals/I&O/Wt Last Vital Signs Temp 98.1 F 10/22/20 17:21 Pulse 87 10/22/20 17:21 Resp 20 H 10/22/20 17:21 BP 114/67 10/22/20 17:21 Pulse Ox 90 10/22/20 17:21 10/22/20 10/22/20 10/22/20 06:59 14:59 22:59 Intake Total 350 / 1600 1000 / 1100 100 / 1100 Output Total 200 / 965 155 / 240 85 / 240 Balance 150 / 635 845 / 860 15 / 860 Physical Exam Narrative: EXAM NARRATIVE: Abdomen: Soft, tender, dressing saturated, JAZMYN drain output is sanguinous Cagle to gravity Urinary Catheter Management^: Cagle: Cath Placed During This Visit: yes Urinary Catheter Date of Insertion: 10/21/20 Urinary Catheter Time of Insertion: 11:15 Data : 10/22/20 02:15 10/22/20 16:42 A&P Assessment and plan (1) History of incisional hernia repair: Status post incisional hernia repair with mesh, cholecystectomy, appendectomy with low urine output overnight. Patient is hemodynamically stable, passing flatus Start clear liquid diet Heparin for DVT prophylaxis Pepcid for GI prophylaxis Daily labs Continue the epidural today, keep Cagle catheter due to epidural Status: Acute (2) Acute renal failure: Patient received multiple fluid boluses today with no significant urine output noted. Bladder scan did not show any significant amount in the bladder DC vancomycin, Toradol, losartan Start clindamycin IV 600 mg 3 times daily for prophylaxis Start Percocet every 6h for pain control instead of toradol Consult Dr. Turner for medical management Status: Acute Attestations Medical Necessity Statement*: s/p incisional hernia repair requriing continued inpatient stay to ensure resolution of obstruction/ileus Coding Level of Care Code Acute Gear Coding Machine Operator for [facility] Fw Diagnoses History of incisional hernia repair Z98.890; Z87.19 Acute renal failure N17.9
[2020-10-22] MEDS: heparin 5,000 unit/mL INJ 1 mL 5000 UNIT SUBCUT (18:41)
[2020-10-22] MEDS: clindamycin 600 MG/50 ML PREMIX 100 MG IV (18:42)
--- NOTE | 2020-10-22 18:49 | PM.CONSULT ---
Providers/Reason For Consult Consulting Physican/Specialty*: I was kindly asked by Dr. Mosley to participate in treatment of this patient. Reason for Consult*: Management of acute kidney injury and medical conditions postoperatively. Attending Physician: Toan Mosley MD Primary Care Provider: Mabel Cid MD History of Present Illness History of Present Illness Stephanie Sin is a 80 year old female with past medical history of hypertension who underwent ex lap with abdominal wall hernia repair, cholecystectomy, appendectomy, and a right renal cyst resection yesterday by Dr. Mosley. Today it was noted that the patient developed oliguria and increased creatinine. She already received 2 to 3 L of IV fluids. Bladder scan showed small amount of urine in the bladder. Currently the patient is reporting abdominal pain in the surgical area. It is well controlled with current medications. Denies nausea or vomiting, chest pain, shortness of breath, cough, palpitations. No fever or chills. The patient denies any prior kidney disease. Review of Systems General: Reports: 10 or more systems reviewed and unremarkable except in HPI and below Meds/Allergies Home Medications and Allergies Home Medications Medication Instructions Recorded Confirmed Last Taken Type anastrozole 1 mg tablet 1 mg PO DAILY 04/29/20 10/21/20 10/20/20 History calcium carbonate 600 mg calcium 1,200 mg PO DAILY tab 04/29/20 10/21/20 10/20/20 History (1,500 mg) tablet felodipine 5 mg tablet,extended 10 mg PO DAILY tab 04/29/20 10/21/20 10/20/20 History release 24 hr labetalol 200 mg tablet 200 mg PO BID 04/29/20 10/21/20 10/21/20 History losartan 100 mg tablet 100 mg PO DAILY 04/29/20 10/21/20 10/21/20 History magnesium 250 mg tablet 250 mg PO DAILY 04/29/20 10/21/20 10/20/20 History multivitamin 1 tab PO DAILY 04/29/20 10/21/20 10/20/20 History vitamin B complex 1 tab PO DAILY 04/29/20 10/21/20 10/20/20 History pantoprazole 40 mg tablet,delayed See Rx Instructions .ROUTE 09/05/20 10/21/20 10/20/20 Rx release .COMPLEX #60 tab Allergies Allergy/AdvReac Type Severity Reaction Status Date / Time chlordiazepoxide Allergy ALGY-Anaphy Verified 10/15/20 16:24 [From Librium] laxis Penicillins Allergy ALGY-Rash Verified 10/15/20 16:24 Current Medications Current Medications Generic Name Dose Route Start Last Admin Trade Name Freq PRN Reason Stop Dose Admin Famotidine 20 mg 10/21/20 19:00 10/22/20 17:10 Famotidine 20 Mg/2 Ml Inj IVP 20 mg Q12H YURI Administration Heparin Sodium (Beef Lung) 5,000 unit 10/22/20 18:00 10/22/20 18:41 Heparin 5,000 Unit/Ml Inj 1 Ml SUBCUT 5,000 unit Q12H YURI Administration Ropivacaine 200 mg in 100 mls @ 5 mls/hr 10/21/20 22:00 10/22/20 17:53 Naropin Premix EPIDURAL 5 mls/hr .Q20H YURI Administration Clindamycin HCl/Dextrose 600 mg in 50 mls @ 100 mls/hr 10/22/20 19:00 10/22/20 18:42 Cleocin IV 100 mls/hr Q8H YURI Administration Protocol Labetalol HCl 200 mg 10/21/20 18:00 10/22/20 17:11 Labetalol 200 Mg Tablet PO 200 mg BID YURI Administration Lactulose 10 gm 10/21/20 18:30 10/22/20 17:11 Lactulose Oral Liq 20 Gm/30 Ml Udc PO 10 gm Q12H YURI Administration PFSH Acute PFSH: Medical History (Updated 10/22/20 @ 18:11 by Toan Mosley MD) Anemia Breast cancer, left H/O nonmelanoma skin cancer Hyperlipidemia Hypertension Renal cyst Surgical History (Updated 10/22/20 @ 18:11 by Toan Mosley MD) H/O basal cell carcinoma excision H/O partial mastectomy left History of colonoscopy with polypectomy (07/23/20) History of incisional hernia repair (10/21/20) Bilateral anterior component separation, cholecystectomy, appendectomy, excision of renal cyst History of tonsillectomy Family History Grandmother Cancer breast Mother Cancer ovarian Father Hypertension Stroke Denies family history of Anesthesia complication Bleeding disorder Social History Smoking and tobacco status: never smoked Alcohol intake: never Lives independently: Yes Marital status: Single Current occupational status: retired History of recent travel: No Vitals/I&O/Wt Last Vital Signs Temp 98.1 F 10/22/20 17:21 Pulse 87 10/22/20 17:21 Resp 20 H 10/22/20 17:21 BP 114/67 10/22/20 17:21 Pulse Ox 90 10/22/20 17:21 10/22/20 10/22/20 10/22/20 06:59 14:59 22:59 Intake Total 350 / 1600 1000 / 1000 100 / 1100 Output Total 200 / 965 155 / 155 85 / 240 Balance 150 / 635 845 / 845 15 / 860 Physical Exam Narrative: EXAM NARRATIVE: The patient is awake alert oriented. No acute distress. Mood and affect are appropriate. Responses are adequate. Normal speech. No facial asymmetry. No focal muscle weakness. Skin is warm and dry. Moist mucous membranes Eyes PERRLA, extraocular muscles are intact Neck supple. No JVD Lungs slightly decreased breath sounds bibasilarly. No wheezes or crackles. No respiratory distress Heart S1, S2, regular Abdomen is soft, tender on palpation, bowel sounds are decreased. No guarding. Extremities no edema cyanosis or calf tenderness bilaterally. Urinary Catheter Management^: Cagle: Cath Placed During This Visit: yes Urinary Catheter Date of Insertion: 10/21/20 Urinary Catheter Time of Insertion: 11:15 Data Labs: Other Labs: Laboratory Results WBC 18.7 10^3/uL (4.0 -10.0) H 10/22/20 02:15 RBC 3.44 10^6/uL (4.1 -5.3) L 10/22/20 02:15 Hgb 9.9 g/dL (11.5-15 .3) L 10/22/20 02:15 Hct 32.7 % (37.0-47.0 ) L 10/22/20 02:15 MCV 95.1 fL (81-99) 10/22/20 02:15 MCH 28.8 pg (28.0-34. 0) 10/22/20 02:15 MCHC 30.3 g/dL (30.0-3 6.0) 10/22/20 02:15 RDW 13.2 % (12.1-15.1 ) 10/22/20 02:15 Plt Count 231 10^3/cmm (130 -400) 10/22/20 02:15 MPV 12.8 fL (7.4-10.4 ) H 10/22/20 02:15 Neut % (Auto) 85.6 % 10/22/20 02:15 Lymph % (Auto) 5.9 % 10/22/20 02:15 [place] % (Auto) 7.8 % 10/22/20 02:15 Eos % (Auto) 0.0 % 10/22/20 02:15 Baso % (Auto) 0.4 % 10/22/20 02:15 Neut # (Auto) 16.01 10^3/uL (1. 8-7.7) H 10/22/20 02:15 Lymph # (Auto) 1.1 10^3/uL (0.8- 4.8) 10/22/20 02:15 [place] # (Auto) 1.5 10^3/uL (0.2- 0.9) H 10/22/20 02:15 Eos # (Auto) 0.0 10^3/uL (0.0- 0.8) 10/22/20 02:15 Baso # (Auto) 0.1 10^3/uL (0.0- 0.1) 10/22/20 02:15 Nucleated RBC % (a uto) 0 % 10/22/20 02:15 Nucleated RBCs # 0.0 /100WBC 10/22/20 02:15 Sodium 136 mmol/L (136-1 45) 10/22/20 16:42 Potassium 4.9 mmol/L (3.5-5 .1) 10/22/20 16:42 Chloride 110 mmol/L (98-10 7) H 10/22/20 16:42 Carbon Dioxide 17 mmol/L (22-29) L 10/22/20 16:42 Anion Gap 13.9 (5-19) 10/22/20 16:42 BUN 24 mg/dL (8-23) H 10/22/20 16:42 Creatinine 1.9 mg/dL (0.5-0. 9) H 10/22/20 16:42 GFR Calculation Not Reportable 10/22/20 16:42 Glucose 164 mg/dL (65-115 ) H 10/22/20 16:42 Calculated Osmolal ity 290 mOsm/kg (285- 295) 10/22/20 16:42 Calcium 7.7 mg/dL (8.5-10 .5) L 10/22/20 16:42 Total Bilirubin 0.4 mg/dL (0.15-1 .2) 10/21/20 18:35 AST 38 U/L (0-32) H 10/21/20 18:35 ALT 28 U/L (0-33) 10/21/20 18:35 Alkaline Phosphata se 66 IU/L (35-105) 10/21/20 18:35 Total Protein 5.0 g/dL (6.6-8.7 ) L 10/21/20 18:35 Albumin 2.9 g/dL (3.5-5.2 ) L 10/21/20 18:35 Globulin 2.1 g/dL (1.3-4.6 ) 10/21/20 18:35 Impressions Chest X-Ray 10/21/20 18:48 IMPRESSION: 1. NG tube extends into the right lower lobe through the right mainstem bronchus 2. Right upper lobe interstitial congestion. ADDENDUM: 10/21/202006 Findings were discussed with CLAUDETTE Canales at 10/21/2020 8:06 PM PUPIL PERSONNEL WORKER. A&P Additional A&P Information 80-year-old female with past medical history of hypertension who underwent exlap with cholecystectomy, appendectomy, abdominal wall hernia repair, and right renal cyst resection by Dr. Mosley. Operative day 1. The patient developed oliguria and mild acute kidney injury. I was kindly consulted by Dr. Mosley to manage her medical conditions postoperatively. Pain management, diet and antibiotics per Dr. Mosley. Acute kidney injury. Most likely prerenal secondary to transient fluid depletion. I agree with discontinuation of vancomycin and ketorolac due to possible nephrotoxic effect. I also agree with holding losartan. I agree with IV fluids. I will order bilateral renal ultrasound to rule out chronic kidney disease and acute obstruction. She already has a Cagle catheter. We will monitor her renal function and electrolytes. I will discontinue potassium from her IV fluids because of the acute kidney injury and potassium being close to upper limit of normal. Will consider additional testing depending on progress. Hypertension. Currently well controlled. I will order as needed hydralazine since we are holding her losartan. We can continue beta-alexander. Acute metabolic acidosis. Could be secondary to dehydration and or acute kidney injury. We will closely monitor her chemistry panel. Will manage it with IV fluids. Anemia. Stable. Monitor. Hyperglycemia. Most likely due to IV fluids containing dextrose. I will start her on insulin sliding scale and order A1c to rule out diabetes. DVT prophylaxis. She is already on heparin. Thank you very much for allowing me to precipitate in the treatment of this patient. Coding Level of Care Code Acute Silver Recovery Operator for Marianne Grewal
--- NOTE | 2020-10-22 18:51 | PC.NURSE ---
Dr Mosley request that Dr Rowe look at patient's epidural site. jingle writer notified Dr Rowe
[2020-10-22 19:03] LABS: Lymphocytes 12 %; Segmented Neutrophils 83 %; Total Cells Counted 100 (0-100)
[2020-10-22 19:04] LABS: Eosinophils 0 %; Platelet Estimate Normal (Normal)
[2020-10-22 19:07] LABS: Absolute Neutrophil 13.1 10^3/cmm (1.4-6.5); Absolute Segmented Neutrophil 13.1 10/cmm (1.6-7.1); Hematocrit 29.1 % (37.0-47.0); Hemoglobin 8.5 g/dL (11.5-15.3); Mean Corpuscular HGB Conc 29.2 g/dL (30.0-36.0); Mean Corpuscular Volume 99.3 fL (81-99); Mean Platelet Volume 12.5 fL (7.4-10.4); Monocytes Absolute 0.2 10^3/cmm (0.1-0.6); Platelet Count 224 10^3/cmm (130-400); Red Blood Count 2.93 10^6/uL (4.1-5.3); Red Cell Distribution Width 13.4 % (12.1-15.1); White Blood Count 15.8 10^3/uL (4.0-10.0)
[2020-10-22] MEDS: oxyCODONE-APAP 5-325 mg Tablet 1 TAB PO (19:23)
[2020-10-22 20:28] LABS: Glucose Point of Care 139 mg/dL (70-110)
[2020-10-22 20:31] LABS: Estmated Average Glucose 97
[2020-10-22] MEDS: dextrose 5%-sod chloride 0.45% 1,000 ML 125 ML IV (21:31)
[2020-10-23] VITALS (16 sets, daily range): BP systolic 82–129; BP diastolic 49–75; PULSE 65–88; RESP 16–24; TEMP 36.4–36.8; O2SAT 92–99
[2020-10-23] MEDS: oxyCODONE-APAP 5-325 mg Tablet 1 TAB PO ×3 (01:04→19:00)
[2020-10-23] MEDS: dextrose 5%-sod chloride 0.45% 1,000 ML 125 ML IV ×2 (01:47→10:37)
[2020-10-23] MEDS: clindamycin 600 MG/50 ML PREMIX 100 MG IV ×2 (02:37→10:35)
[2020-10-23 05:36] LABS: Basophils # 0.1 10^3/uL (0.0-0.1); Basophils % 0.3 %; Hematocrit 25.1 % (37.0-47.0); Hemoglobin 7.6 g/dL (11.5-15.3); Lymphocytes # 1.9 10^3/uL (0.8-4.8); Lymphocytes % 11.7 %; Mean Corpuscular HGB Conc 30.3 g/dL (30.0-36.0); Mean Corpuscular Hemoglobin 29.6 pg (28.0-34.0); Mean Corpuscular Volume 97.7 fL (81-99); Mean Platelet Volume 12.5 fL (7.4-10.4); Monocytes # 1.4 10^3/uL (0.2-0.9); Monocytes % 8.9 %; Neutrophils # 12.55 10^3/uL (1.8-7.7); Neutrophils % 78.3 %; Nucleated Red Blood Cells % 0 %; Platelet Count 186 10^3/cmm (130-400); Red Blood Count 2.57 10^6/uL (4.1-5.3); Red Cell Distribution Width 13.6 % (12.1-15.1)
[2020-10-23 05:59] LABS: Magnesium 1.7 mg/dL (1.7-2.3)
[2020-10-23 06:00] LABS: Albumin Level 2.8 g/dL (3.5-5.2); Anion Gap 13.1 (5-19); Blood Urea Nitrogen 24 mg/dL (8-23); Calcium 7.7 mg/dL (8.5-10.5); Carbon Dioxide 18 mmol/L (22-29); Chloride 106 mmol/L (98-107); Glucose 144 mg/dL (65-115); Osmolality Calculated 281 mOsm/kg (285-295); Phosphorus 4.6 mg/dL (2.5-4.5); Potassium 5.1 mmol/L (3.5-5.1); Sodium 132 mmol/L (136-145)
--- NOTE | 2020-10-23 06:07 | PC.NURSE ---
US at bedside at this time.
[2020-10-23] MEDS: lactulose oral liq 20 gm/30 mL UDC 10 GM PO (06:24)
[2020-10-23] MEDS: famotidine 20 mg/2 mL INJ IVP ×2 (06:24→19:00)
[2020-10-23] MEDS: heparin 5,000 unit/mL INJ 1 mL 5000 UNIT SUBCUT (06:25)
[2020-10-23 07:14] LABS: Glucose Point of Care 135 mg/dL (70-110)
--- NOTE | 2020-10-23 07:21 | PC.NURSE ---
Report to Ailyn WILKINS.
[2020-10-23] MEDS: labetalol 200 mg Tablet PO (10:36)
--- NOTE | 2020-10-23 11:05 | ANE.PACU2 ---
Inpatient post-anesthesia follow up: Airway intact: Yes Vital signs: Temperature 97.9 F Pulse Rate 65 Respiratory Rate 18 Blood Pressure 117/66 Pulse Oximetry 96 Oxygen Delivery Me thod Nasal Cannula Oxygen Flow Rate 1 Fraction of Inspir ed Oxygen Hydration adequate: Yes Nausea and vomiting: No Pain level: 6 Mental status: Baseline Additional Comments: Epidural removed at 1055 (heparin given aprox. 0630) at surgeon's request. No signs of infection at epidural site, no bruising, erythema, tenderness to palpation or purulence. Cagle still in place d/t low UOP. Denies headaches.
--- NOTE | 2020-10-23 12:24 | PC.NURSE ---
Notified nurse of low bp of 82/49.
--- NOTE | 2020-10-23 12:40 | PM.PN ---
Subjective Subjective: Interval history: The patient is complaining of abdominal pain and distention. The medications are. No nausea or vomiting. No bowel movements. No fever or chills. Medications: Reviewed: Yes Medication Review Details: Generic Name Dose Route Start Last Admin Trade Name Tiq PRN Reason Stop Dose Admin Famotidine 20 mg 10/21/20 19:00 10/23/20 06:24 Famotidine 20 Mg /2 Ml Inj IVP 20 mg Q12H YURI Administration Heparin Sodium (Be ef Lung) 5,000 unit 10/22/20 18:00 10/23/20 06:25 Heparin 5,000 Un it/Ml Inj 1 Ml SUBCUT 5,000 unit Q12H YURI Administration Ropivacaine 200 mg in 100 mls @ 5 mls/hr 10/21/20 22:00 10/22/20 17:53 Naropin Premix EPIDURAL 5 mls/hr .Q20H YURI Administration Clindamycin HCl/De xtrose 600 mg in 50 mls @ 100 mls/hr 10/22/20 19:00 10/23/20 10:35 Cleocin IV 100 mls/hr Q8H YURI Administration Protocol Dextrose/Sodium Ch loride 1,000 mls @ 125 m ls/hr 10/22/20 19:00 10/23/20 10:37 Dextrose 5%-Sod Chloride 0.45% IV 125 mls/hr .Q8H YURI Administration Insulin Aspart 0 unit 10/22/20 21:00 10/22/20 20:21 Insulin Aspart 1 00 Unit/1 Ml SUBCUT Not Given BEDTIME YURI Protocol Labetalol HCl 200 mg 10/21/20 18:00 10/23/20 10:36 Labetalol 200 Mg Tablet PO 200 mg BID YURI Administration Lactulose 10 gm 10/21/20 18:30 10/23/20 06:24 Lactulose Oral L iq 20 Gm/30 Ml Udc PO 10 gm Q12H YURI Administration Oxycodone/Acetamin ophen 1 tab 10/22/20 19:00 10/23/20 06:25 Oxycodone-Apap 5 -325 Mg Tablet PO 1 tab Q6H YURI Administration Vitals/I&O/Wt Last Vital Signs Temp 98.3 F 10/23/20 12:00 Pulse 67 10/23/20 12:00 Resp 17 10/23/20 12:00 BP 82/49 01/20/21 12:00 Pulse Ox 94 10/23/20 12:00 10/22/20 10/23/20 10/23/20 22:59 06:59 14:59 Intake Total 1150 / 2150 583.333 / 2733.333 1000 / 1000 Output Total 205 / 360 335 / 695 25 / 25 Balance 945 / 1790 248.333 / 2038.333 975 / 975 Physical Exam Narrative: EXAM NARRATIVE: The patient is awake alert oriented. No acute distress. Mood and affect are appropriate. Responses are adequate. Normal speech. No facial asymmetry. No focal muscle weakness. Skin is warm and dry. Moist mucous membranes Eyes PERRLA, extraocular muscles are intact Neck supple. No JVD Lungs slightly decreased breath sounds bibasilarly. No wheezes or crackles. No respiratory distress Heart S1, S2, regular Abdomen is distended, tender on palpation, bowel sounds are decreased. No guarding. Extremities no edema cyanosis or calf tenderness bilaterally. Urinary Catheter Management^: Cagle: Cath Placed During This Visit: yes Urinary Catheter Date of Insertion: 10/21/20 Urinary Catheter Time of Insertion: 11:15 Data : 10/23/20 05:08 10/23/20 05:08 A&P Additional A&P Information 80-year-old female with past medical history of hypertension who underwent exlap with cholecystectomy, appendectomy, abdominal wall hernia repair, and right renal cyst resection by Dr. Mosley. Operative day 1. The patient developed oliguria and mild acute kidney injury. I was kindly consulted by Dr. Mosley to manage her medical conditions postoperatively. Pain management, diet and antibiotics per Dr. Mosley. Acute kidney injury, oliguric. Most likely prerenal secondary to transient fluid depletion. I agree with discontinuation of vancomycin and ketorolac due to possible nephrotoxic effect. I also agree with holding losartan. Slightly hypotensive. We will give her additional bolus of NS and continue current maintenance IV fluids at 125 cc. Will consider additional boluses. Bilateral renal ultrasound is pending. I am also waiting for urine sodium and creatinine, eosinophils, UA. Continue Cagle catheter. We will monitor her renal function and electrolytes. Consulting Dr. Littlejohn, nephrology. I appreciate his help. Hypertension. Currently mildly hypotensive. We will hold her home blood pressure medications. Acute metabolic acidosis. Could be secondary to dehydration and or acute kidney injury. We will closely monitor her chemistry panel. Will manage it with IV fluids. Anemia. Stable. Monitor. Hyperglycemia. Most likely due to IV fluids containing dextrose. A1c level is within normal range. Continue insulin sliding scale. DVT prophylaxis. Heparin. Thank you very much for allowing me to precipitate in the treatment of this patient. The plan of care was discussed with the patient and her family at the bedside. They verbalized understanding and agreement. Attestations Medical Necessity Statement*: The plan of care listed above requires inpatient hospitalization. Coding Level of Care Code Acute Scientific Research Associate for Marianne Grewal
--- NOTE | 2020-10-23 12:42 | PM.CONSULT ---
Providers/Reason For Consult Consulting Physican/Specialty*: Nephrology Reason for Consult*: Acute kidney damage Attending Physician: Toan Mosley MD Primary Care Provider: Mabel Cid MD History of Present Illness History of Present Illness Thank you for consultation. Today I had the pleasure of reviewing this 80-year-old female for evaluation of acute kidney injury. On 10/21 she underwent exploratory laparotomy with lysis of adhesions, open cholecystectomy, appendectomy, cecopexy, excision of right renal cyst. She is now seen postop day 2. She feels well, mild discomfort in the left lower abdomen. She is passing gas. She is on a clear liquid diet. No nausea or vomiting. Hemodynamics reviewed, it does appear that her blood pressure did drop on 10/21 to a recorded low of 83/54 at 7:15 PM. She has received boluses of intravenous fluid and she is currently receiving isotonic IV fluid and the blood pressure is more robust now, last measured at 117/66. No prior history of acute or chronic kidney disease, is never seen a kidney specialist or needed hemodialysis. Admission creatinine 0.7, yesterday 1.1 and today 2.1. Urine output noted to be 200 last night and 100 today. She has a chronic history of high blood pressure, well controlled on combination labetalol and losartan. No history of diabetes, she does have diet-controlled diabetes. No history of heart or lung disease. She did receive some martins caloric on 10/21 through 10/22 she is also received vancomycin also on 10/21 through 10/22. Review of Systems Narrative: ROS - 12 point review of systems completed per HPI and subjective assessment, this includes Constitutional: No weakness, fatigue Respiratory: No SOB on exertion, comfortable at rest CardioVasc: No chest pain, palpitations Gastrointestinal: No nausea, no vomiting Neurological: No seizures, no AMS Derm: No new rashes, lesions or wounds Immunological: No seasonal and no food allergies Meds/Allergies Home Medications and Allergies Home Medications Medication Instructions Recorded Confirmed Last Taken Type anastrozole 1 mg tablet 1 mg PO DAILY 04/29/20 10/21/20 10/20/20 History calcium carbonate 600 mg calcium 1,200 mg PO DAILY tab 04/29/20 10/21/20 10/20/20 History (1,500 mg) tablet felodipine 5 mg tablet,extended 10 mg PO DAILY tab 04/29/20 10/21/2021 History release 24 hr labetalol 200 mg tablet 200 mg PO BID 04/29/20 10/21/20 10/21/20 History losartan 100 mg tablet 100 mg PO DAILY 04/29/20 10/21/20 10/21/20 History magnesium 250 mg tablet 250 mg PO DAILY 04/29/20 10/21/20 10/20/20 History multivitamin 1 tab PO DAILY 04/29/20 10/21/20 10/20/20 History vitamin B complex 1 tab PO DAILY 04/29/20 10/21/20 10/20/20 History pantoprazole 40 mg tablet,delayed See Rx Instructions .ROUTE 09/05/20 10/21/20 10/20/20 Rx release .COMPLEX #60 tab Allergies Allergy/AdvReac Type Severity Reaction Status Date / Time chlordiazepoxide Allergy ALGY-Anaphy Verified 10/15/20 16:24 [From Librium] laxis Penicillins Allergy ALGY-Rash Verified 10/15/20 16:24 Current Medications Current Medications Generic Name Dose Route Start Last Admin Trade Name Freq PRN Reason Stop Dose Admin Famotidine 20 mg 10/21/20 19:00 10/23/20 06:24 Famotidine 20 Mg/2 Ml Inj IVP 20 mg Q12H YURI Administration Heparin Sodium (Beef Lung) 5,000 unit 10/22/20 18:00 10/23/20 06:25 Heparin 5,000 Unit/Ml Inj 1 Ml SUBCUT 5,000 unit Q12H YURI Administration Ropivacaine 200 mg in 100 mls @ 5 mls/hr 10/21/20 22:00 10/22/20 17:53 Naropin Premix EPIDURAL 5 mls/hr .Q20H YURI Administration Clindamycin HCl/Dextrose 600 mg in 50 mls @ 100 mls/hr 10/22/20 19:00 10/23/20 10:35 Cleocin IV 100 mls/hr Q8H YURI Administration Protocol Dextrose/Sodium Chloride 1,000 mls @ 125 mls/hr 10/22/20 19:00 10/23/20 10:37 Dextrose 5%-Sod Chloride 0.45% IV 125 mls/hr .Q8H YURI Administration Insulin Aspart 0 unit 10/22/20 21:00 10/22/20 20:21 Insulin Aspart 100 Unit/1 Ml SUBCUT Not Given BEDTIME [facility] Protocol Labetalol HCl 200 mg 10/21/20 18:00 10/23/20 10:36 Labetalol 200 Mg Tablet PO 200 mg BID YURI Administration Lactulose 10 gm 10/21/20 18:30 10/23/20 06:24 Lactulose Oral Liq 20 Gm/30 Ml Udc PO 10 gm Q12H YURI Administration Oxycodone/Acetaminophen 1 tab 10/22/20 19:00 10/23/20 06:25 Oxycodone-Apap 5-325 Mg Tablet PO 1 tab Q6H YURI Administration PFSH Acute PFSH: Medical History (Updated 10/22/20 @ 18:11 by Toan Mosley MD) Anemia Breast cancer, left H/O nonmelanoma skin cancer Hyperlipidemia Hypertension Renal cyst Surgical History (Updated 10/22/20 @ 18:11 by Toan Mosley MD) H/O basal cell carcinoma excision H/O partial mastectomy left History of colonoscopy with polypectomy (07/23/20) History of incisional hernia repair (10/21/20) Bilateral anterior component separation, cholecystectomy, appendectomy, excision of renal cyst History of tonsillectomy Family History Grandmother Cancer breast Mother Cancer ovarian Father Hypertension Stroke Denies family history of Anesthesia complication Bleeding disorder Social History Smoking and tobacco status: never smoked Alcohol intake: never Lives independently: Yes Marital status: Single Current occupational status: retired History of recent travel: No Vitals/I&O/Wt Last Vital Signs Temp 98.3 F 10/23/20 12:00 Pulse 67 10/23/20 12:00 Resp 17 10/23/20 12:00 BP 82/49 10/23/20 12:00 Pulse Ox 94 10/23/20 12:00 10/22/20 10/23/20 10/23/20 22:59 06:59 14:59 Intake Total 1150 / 2150 583.333 / 2733.333 1000 / 1000 Output Total 205 / 360 335 / 695 25 / Balance 945 / 1790 248.333 / 2038.333 975 / 975 Physical Exam Narrative: EXAM NARRATIVE: Constitutional: Awake, comfortable HEENT: Wet mucosa, no jvp, non icteric Lungs: Bilaterally clear without discernible wheeze, rales in all lung zones CVS: S1 S2, no murmurs Abdo: Soft, BS ok Ext 4: Minimal edema, peripheral perfusion with no cyanosis Neurological: Grossly non-focal Urinary Catheter Management^: Cagle: Cath Placed During This Visit: yes Urinary Catheter Date of Insertion: 10/21/20 Urinary Catheter Time of Insertion: 11:15 A&P Additional A&P Information 1. DAMIEN Likely to be combination of renal hypoperfusion from low blood pressure in the setting of decreased glomerular inflow from anti-inflammatories, in the setting of decreased glomerular pressure from ARB effect. The blood pressures seem to be more robust now, NSAIDs have now been stopped, ARB also on hold. Differential includes vancomycin associated ATN, but this is less likely. Continue IV fluid with lactated Ringer's at 125 mL/h. Work-up to include renal sonogram, urinalysis, urine sodium, creatinine. We will get CPK, TSH. No indication for dialysis today. This will likely not be necessary. Strict ins and outs. Dose medications for GFR less than 30 2. S/p exploratory laparotomy, cholecystectomy, appendectomy, cecopexy, excision of right renal cyst. She is now seen postop day 2. Advance diet per Dr. Mosley. 3. Chemistry. Minor aberration including hyponatremia, acidosis. We will continue to monitor these, noncritical. 4. Hypertension. Blood pressure currently on the soft side, antihypertensives currently on hold. 5. Anemia am CBC, iron levels Eleazar Littlejohn MD Nephrology [phone] Patient seen and examined via telemedicine, with the assistance of the bedside RN > 25 min spent in evaluation and mgmt of patient Coding Level of Care Code Acute Packing Tractor Machine Operator for Marianne Grewal
[2020-10-23 13:27] LABS: Glucose Point of Care 125 mg/dL (70-110)
[2020-10-23] MEDS: sodium chloride 0.9% 500 ML 999 ML IV (13:52)
[2020-10-23] MEDS: lactated ringers 1,000 ML 125 ML IV ×2 (13:53→20:58)
[2020-10-23] MEDS: ipratropium-albuterol 3 mL Neb INHALATION (16:44)
--- NOTE | 2020-10-23 17:32 | XRR_ITS ---
PROCEDURE INFORMATION: Exam: XR Chest, 1 View Exam date and time: 10/23/2020 5:33 PM Age: 80 years old Clinical indication: Wheezing TECHNIQUE: Imaging protocol: XR of the chest Views: 1 view. Total images: 1 COMPARISON: CR XR chest 1V portable [id number] 10/21/2020 6:56 PM FINDINGS: Lungs: Diminished inspiratory effort. Suspected mild discoid atelectasis lung bases. Pleural space: Unremarkable. No pleural effusion. No pneumothorax. Pleural space: Unremarkable. No pleural effusion. No pneumothorax. Heart/Mediastinum: Cardiomegaly. Bones/joints: Unremarkable for age. XR/XR chest 1V portable [id number] IMPRESSION: 1. Diminished inspiratory effort. 2. Suspected mild discoid atelectasis lung bases. 3. Cardiomegaly.
--- NOTE | 2020-10-23 17:48 | PM.PN ---
Subjective Subjective: Interval history: Patient had two loose bowel movements today, no nausea or vomiting, problems with pain control as expected since epidural was discontinued today. Urine output marginally better. Denies any nausea or vomiting. Had significant serosanguineous output from the JAZMYN drain, hemoglobin is down to 7.6. Repeat labs at 4 PM could not be drawn due to poor venous access. Vitals/I&O/Wt Last Vital Signs Temp 97.8 F 10/23/20 15:51 Pulse 82 10/23/20 16:50 Resp 24 H 10/23/20 16:50 BP 129/75 10/23/20 15:51 Pulse Ox 96 10/23/20 16:50 10/23/20 10/23/20 10/23/20 06:59 14:59 22:59 Intake Total 583.333 / 2733.333 1000 / 1000 Output Total 335 / 695 125 / 275 150 / 275 Balance 248.333 / 2038.333 875 / 725 -150 / 725 Physical Exam Narrative: EXAM NARRATIVE: Abdomen: Incision clean dry and intact, ecchymosis of the skin flaps, tender, nondistended, JAZMYN drain output is serosanguineous, Cagle catheter in place Urinary Catheter Management^: Cagle: Cath Placed During This Visit: yes Urinary Catheter Date of Insertion: 10/21/20 Urinary Catheter Time of Insertion: 11:15 Data : 10/23/20 05:08 10/23/20 05:08 A&P Assessment and plan (1) History of incisional hernia repair: Status post incisional hernia repair with mesh, cholecystectomy, appendectomy with low urine output overnight. Patient is hemodynamically stable, passing flatus, had two loose stools today Patient had two loose stools, check for C. difficile, advance to full liquid diet DC lactulose and start Colace and senna Will DC clindamycin and put her on p.o. Keflex for prophylactic therapy DVT prophylaxis: SCD, hold heparin but since patient had significant JAZMYN drain output which is serosanguineous in hemoglobin is down to 7.6, transfuse 1 unit PRBC, Continue IV fluids LR at 125 cc/h Incentive spirometry Hold all antihypertensives Cagle to gravity for adequate I's and O monitoring Pepcid for GI prophylaxis Daily labs Status: Acute (2) Acute renal failure: Patient received multiple fluid boluses today with no significant urine output noted. Bladder scan did not show any significant amount in the bladder DC vancomycin, Toradol, losartan Start Percocet every 6h for pain control instead of toradol Appreciate Dr. Littlejohn and Dr. Turner input for management of acute renal failure Status: Acute Attestations Medical Necessity Statement*: Status post incisional hernia repair with mesh with acute renal failure and blood loss anemia requiring continued inpatient stay Coding Level of Care Code Acute Instructor Of Nursing for Chg Fwd Diagnoses History of incisional hernia repair Z98.890; Z87.19 Acute renal failure N17.9
[2020-10-23 17:52] LABS: Glucose Point of Care 122 mg/dL (70-110)
--- NOTE | 2020-10-23 18:46 | US_ITS ---
WS: [id number] RENAL ULTRASOUND HISTORY: DAMIEN COMPARISON: None available. TECHNIQUE: 2-D and color Doppler imaging of the kidney submitted. Right kidney: 10.1 cm x 5.0 cm x 5.1 cm. Very poorly visualized kidney. There is increased echogenicity with poor cortical medullary different iation. No hydronephrosis. Mass cannot be excluded. Left kidney: 9.9 cm x 5.1 cm x 5.5 cm. Normal size kidney with no hydronephrosis. Poorly visualized. No abnormality identified. Aorta: Poorly visualized. Urinary Bladder: Cagle catheter present. US/US renal BI* [id number] IMPRESSION: 1. Technically very limited evaluation of the kidneys. 2. Suspect mild bilateral renal medical disease without atrophy. 3. Previously described large RIGHT renal cyst is not identified. May still be present and obscured due to body habitus or may have collapsed. 4. No hydronephrosis seen.
[2020-10-23 19:23] LABS: Bilirubin Urine Neg (Negative); Blood Urine 3+ (Negative); Glucose Urine UA Norm (Normal); Ketones Urine Negative (Negative); Nitrate Urine Negative (Negative); Protein Urine Trace (Negative); Urine Appearance Hazy (CLEAR); Urine Color Yellow (Yellow); Urobilinogen Urine Norm (Negative); pH Urine 5 (5-7)
[2020-10-23 19:24] LABS: Add Urine Microscopic? YES; Leukocyte Esterase Urine 1+ (Negative)
[2020-10-23 19:31] LABS: Amorphous Sediment Urine 4+ /hpf; Bacteria Urine 2+ /hpf; RBC Urine >100 /hpf (0-2); WBC Urine 15-25 /hpf (0-5)
[2020-10-23 19:32] LABS: Add Urine Culture? Yes
[2020-10-23] MEDS: cephALEXin 500 mg Capsule PO (20:59)
[2020-10-23 21:49] LABS: Thyroid Stimulating Hormone 0.47 uIU/mL (0.27-4.20)
[2020-10-23 21:56] LABS: Creatine Phosphokinase 1396 U/L (26-192)
[2020-10-23 22:43] LABS: Eosinophil Urine No Eosinophils Seen
[2020-10-23 23:06] LABS: Urine Creatinine 107 mg/dL (28-217)
[2020-10-23 23:18] LABS: Urine Random Sodium 19 mmol/L
[2020-10-23] MEDS: sodium chloride 0.9% (100 ml) 100 ML 50 ML (23:52)
--- NOTE | 2020-10-23 23:53 | PC.NURSE ---
PRBC 1Unit of PRBC started at this time. Patient signed consent, placed in chart. Patient verified and vital signs obtained.
[2020-10-24] VITALS (15 sets, daily range): BP systolic 103–163; BP diastolic 64–81; PULSE 66–86; RESP 16–22; TEMP 36.5–37.3; O2SAT 91–100
[2020-10-24] MEDS: oxyCODONE-APAP 5-325 mg Tablet 1 TAB PO ×4 (00:34→18:16)
--- NOTE | 2020-10-24 02:25 | PC.NURSE ---
Drainage Pt. noted to have increased output in JAZMYN drains and lower abdominal incision. Dressing changed and reinforced. Educated patient on limiting abdominal muscle usage without abdominal binder in place. At one point, patient found laying on left side on top of JAZMYN drain. Patient c/o urgency to pee, catheter checked, no kinks and draining well. Patient incontinent of BM twice thus far in shift. Patient agreeable to wear abdominal binder, placed and patient is resting well.
[2020-10-24] MEDS: lactated ringers 1,000 ML 125 ML IV (04:58)
[2020-10-24 06:40] LABS: Glucose Point of Care 81 mg/dL (70-110)
[2020-10-24] MEDS: famotidine 20 mg/2 mL INJ IVP ×2 (06:41→18:15)
[2020-10-24] MEDS: cephALEXin 500 mg Capsule PO (08:50)
[2020-10-24 09:22] LABS: Basophils % 0.3 %; Eosinophils # 0.1 10^3/uL (0.0-0.8); Eosinophils % 0.8 %; Hematocrit 28.8 % (37.0-47.0); Hemoglobin 8.9 g/dL (11.5-15.3); Lymphocytes % 8.6 %; Mean Corpuscular HGB Conc 30.9 g/dL (30.0-36.0); Mean Corpuscular Hemoglobin 29.4 pg (28.0-34.0); Monocytes # 0.8 10^3/uL (0.2-0.9); Monocytes % 6.5 %; Neutrophils # 9.68 10^3/uL (1.8-7.7); Neutrophils % 82.9 %; Nucleated Red Blood Cells % 0 %; Platelet Count 185 10^3/cmm (130-400); Red Blood Count 3.03 10^6/uL (4.1-5.3); Red Cell Distribution Width 13.3 % (12.1-15.1); White Blood Count 11.7 10^3/uL (4.0-10.0)
--- NOTE | 2020-10-24 09:32 | P.PN_ITS ---
Subjective Subjective: Interval history: In chair, denies dyspnea, states castillo is irritating Medications: Reviewed: Yes Vitals/I&O/Wt Last Vital Signs Temp 98.6 F 10/24/20 07:08 Pulse 80 10/24/20 07:08 Resp 17 10/24/20 07:08 BP 128/65 10/24/20 07:08 Pulse Ox 97 10/24/20 07:08 10/23/20 10/24/20 10/24/20 22:59 06:59 14:59 Intake Total 885.417 / 1885.417 350 / 2235.417 360 / 360 Output Total 915 / 1040 655 / 1695 170 / 170 Balance -29.583 / 845.417 -305 / 540.417 190 / 190 Physical Exam Const: COMMON NORMALS: no acute distress GENERAL APPEARANCE: cooperative Extremity: GENERAL: Yes edema Urinary Catheter Management^: Castillo: Cath Placed During This Visit: yes Urinary Catheter Date of Insertion: 10/21/20 Urinary Catheter Time of Insertion: 11:15 Data : 10/24/20 09:15 10/24/20 09:15 A&P Additional A&P Information 1. Acute kidney injury, nonoliguric 2. Mild rhabdomyolysis 3. Hypertension 4. Mild hyponatremia 5. Metabolic acidosis 6. Anemia, s/p transfusion pRBC 7. Volume overload Recommend: agree with IV lasix, repeat labs in AM. Can remove castillo tomorrow. Add sodium bicarbonate. Attestations Medical Necessity Statement*: per primary service Time Spent in Patient Care: 16 - 35 minutes Coding Level of Care Code Acute Maintenance Representative for Marianne Grewal
[2020-10-24 09:43] LABS: Alanine Aminotransferase 54 U/L (0-33); Albumin Level 2.9 g/dL (3.5-5.2); Alkaline Phosphatase 66 IU/L (35-105); Anion Gap 13.6 (5-19); Aspartate Amino Transferase 95 U/L (0-32); Blood Urea Nitrogen 23 mg/dL (8-23); Carbon Dioxide 18 mmol/L (22-29); Chloride 107 mmol/L (98-107); Globulin 2.4 g/dL (1.3-4.6); Glucose 127 mg/dL (65-115); Magnesium 1.7 mg/dL (1.7-2.3); Osmolality Calculated 283 mOsm/kg (285-295); Potassium 4.6 mmol/L (3.5-5.1); Sodium 134 mmol/L (136-145); Total Bilirubin 0.3 mg/dL (0.15-1.2); Total Protein 5.3 g/dL (6.6-8.7)
[2020-10-24 10:57] LABS: NT Pro B Type Natriuretic Pept 2619 pg/mL (0-450)
--- NOTE | 2020-10-24 11:09 | PC.SOCIAL ---
Pg 2 IMM Explained to pt's family Pg 2 IMM. No questions voiced. Copy provided to pt. Signed, dated, & timed a copy & placed in chart.
--- NOTE | 2020-10-24 11:21 | P.PN_ITS ---
Subjective Subjective: Interval history: Overall feels a little better. Reports some wheezing. Reports dysuria. No shortness of breath or cough. No chest pain. No nausea or vomiting. The pain is well controlled. Medications: Reviewed: Yes Medication Review Details: Generic Name Dose Route Start Last Admin Trade Name Emeli PRN Reason Stop Dose Admin Famotidine 20 mg 10/21/20 19:00 10/24/20 06:41 Famotidine 20 Mg /2 Ml Inj IVP 20 mg Q12H YURI Administration Insulin Aspart 0 unit 10/22/20 21:00 10/23/20 23:51 Insulin Aspart 1 00 Unit/1 Ml SUBCUT Not Given BEDTIME [facility] Protocol Oxycodone/Acetamin ophen 1 tab 10/22/20 19:00 10/24/20 06:41 Oxycodone-Apap 5 -325 Mg Tablet PO 1 tab Q6H YURI Administration Senna/Docusate Sod ium 1 tab 10/24/20 09:00 10/24/20 08:50 Sennosides-Docus ate Tablet PO Not Given BID [facility] Vitals/I&O/Wt Last Vital Signs Temp 98.6 F 10/24/20 07:08 Pulse 80 10/24/20 07:08 Resp 17 10/24/20 07:08 BP 128/65 10/24/20 07:08 Pulse Ox 97 10/24/20 07:08 10/23/20 10/24/20 10/24/20 22:59 06:59 14:59 Intake Total 885.417 / 8315.949 3522 / 3235.417 360 / 360 Output Total 915 / 1040 655 / 1695 900 / 900 Balance -29.583 / 845.417 695 / 1540.417 -540 / -540 Physical Exam Narrative: EXAM NARRATIVE: The patient is awake alert oriented. No acute distress. Mood and affect are appropriate. Responses are adequate. Normal speech. No facial asymmetry. No focal muscle weakness. Skin is warm and dry. Moist mucous membranes Eyes PERRLA, extraocular muscles are intact Neck supple. No JVD Lungs slightly decreased breath sounds bibasilarly. Mild scattered wheezes are present. No respiratory distress Heart S1, S2, regular Abdomen is distended, tender on palpation, bowel sounds are decreased. No guarding. Extremities: Mild pedal edema. No cyanosis or calf tenderness bilaterally. Urinary Catheter Management^: Cagle: Cath Placed During This Visit: yes Urinary Catheter Date of Insertion: 10/21/20 Urinary Catheter Time of Insertion: 11:15 Data : 10/24/20 09:15 10/24/20 09:15 A&P Additional A&P Information 80-year-old female with past medical history of hypertension who underwent exlap with cholecystectomy, appendectomy, abdominal wall hernia repair, and right renal cyst resection by Dr. Mosley. Operative day 1. The patient developed oliguria and mild acute kidney injury. I was kindly consulted by Dr. Mosley to manage her medical conditions postoperatively. Pain management, diet and antibiotics per Dr. Mosley. Leukocytosis is improving. Acute kidney injury, oliguric. Most likely prerenal secondary to transient fluid depletion. I agree with discontinuation of vancomycin and ketorolac due to possible nephrotoxic effect. I also agree with holding losartan. Some improvement. However the patient is developing evidence of fluid overload with IV fluids. I discussed with sock knitter Dr. Loaiza. We will go ahead and stop her IV fluids and give her a small dose of Lasix. Will reassess. Fluid overload. As above. UTI. Switching from cefazolin to Rocephin to cover gram-negative's better. UCS. Hypertension. Well-controlled. Continue current management. Acute metabolic acidosis. Could be secondary to dehydration and or acute kidney injury. Stable. Continue monitoring. Anemia. Most likely secondary to fluid overload and hydration. Some expected acute blood loss due to surgery is possible. The patient received transfusion of 1 unit of PRBCs yesterday. Hemoglobin is better today. Hyperglycemia. Most likely due to IV fluids containing dextrose. A1c level is within normal range. Continue insulin sliding scale. DVT prophylaxis. Heparin stopped due to anemia. Continue teds and SCDs. Encouraged ambulation. Thank you very much for allowing me to precipitate in the treatment of this patient. The plan of care was discussed with the patient and her family at the bedside. They verbalized understanding and agreement. The plan of care was discussed also with Dr. Mosley. Attestations Medical Necessity Statement*: Patient has multiple conditions described above which require inpatient hospitalization, close monitoring and close adjustments of her medications. Coding Level of Care Code Acute Palliative Care Nurse Practitioner for Marianne Grewal
[2020-10-24 11:31] LABS: Glucose Point of Care 116 mg/dL (70-110)
--- NOTE | 2020-10-24 11:37 | PM.PN ---
Subjective Subjective: Interval history: Patient tolerating clear liquid diet, had BM yesterday, slept well last night the pain control is still been an issue. Patient is ambulating, had significant JAZMYN drain output. No fevers or chills. Her urine output improved overnight Vitals/I&O/Wt Last Vital Signs Temp 98.6 F 10/24/20 07:08 Pulse 80 10/24/20 07:08 Resp 17 10/24/20 07:08 BP 128/65 10/24/20 07:08 Pulse Ox 97 10/24/20 07:08 10/23/20 10/24/20 10/24/20 22:59 06:59 14:59 Intake Total 885.417 / 3235.417 1350 / 3235.417 360 / 360 Output Total 915 / 1695 655 / 1695 900 / 900 Balance -29.583 / 1540.417 695 / 1540.417 -540 / -540 Physical Exam Narrative: EXAM NARRATIVE: Abdomen: Soft, incision clean dry and intact, skin flaps appear viable bilaterally, JAZMYN drain output is serosanguineous Cagle to gravity Urinary Catheter Management^: Cagle: Cath Placed During This Visit: yes Urinary Catheter Date of Insertion: 10/21/20 Urinary Catheter Time of Insertion: 11:15 Data : 10/24/20 09:15 10/24/20 09:15 A&P Assessment and plan (1) History of incisional hernia repair: Status post incisional hernia repair with mesh, cholecystectomy, appendectomy with low urine output which is finally improving. Patient is hemodynamically stable, had BM Patient had two loose stools, check for C. difficile, advance to GI soft diet tonight Colace and senna for bowel regimen UTI: Start Rocephin DC Keflex DVT prophylaxis: SCD, hold heparin but since patient had significant JAZMYN drain output which is serosanguineous Continue IV fluids LR at 125 cc/h as per nephrology Incentive spirometry Hold all antihypertensives Cagle to gravity for adequate I's and O monitoring Pepcid for GI prophylaxis Daily labs Status: Acute (2) Acute renal failure: Appears to be improving Appreciate nephrology and Dr. Turner input for management of acute renal failure Status: Acute Attestations Medical Necessity Statement*: Status post incisional hernia repair with acute renal failure still needs continued inpatient stay to ensure resolution of renal failure Coding Level of Care Code Acute Box Closing Machine Operator for Chg Fwd Diagnoses History of incisional hernia repair Z98.890; Z87.19 Acute renal failure N17.9
[2020-10-24] MEDS: FUROsemide 10 mg/mL SDV 2mL 20 MG IVP (11:52)
[2020-10-24] MEDS: cefTRIAXone 1,000 MG in sodium chloride 0.9% (plus) 50 ML 100 MG IV (11:52)
[2020-10-24] MEDS: phenazopyridine 100 mg Tablet 200 MG PO (15:48)
[2020-10-24 17:05] LABS: Glucose Point of Care 98 mg/dL (70-110)
[2020-10-24] MEDS: sennosides-docusate Tablet 1 TAB PO (18:14)
[2020-10-24] MEDS: sodium bicarbonate 650 mg Tablet PO (18:20)
[2020-10-24] MEDS: diphenhydrAMINE 50 mg/mL SDV 1mL 12.5 MG IVP (20:54)
[2020-10-24 21:22] LABS: Glucose Point of Care 115 mg/dL (70-110)
[2020-10-25] VITALS (9 sets, daily range): BP systolic 132–171; BP diastolic 71–92; PULSE 75–95; RESP 16–18; TEMP 36.4–37.5; O2SAT 94–99
[2020-10-25] MEDS: oxyCODONE-APAP 5-325 mg Tablet 1 TAB PO ×2 (01:08→06:24)
[2020-10-25 02:37] LABS: Basophils % 0.3 %; Eosinophils # 0.4 10^3/uL (0.0-0.8); Eosinophils % 3.5 %; Hematocrit 29.9 % (37.0-47.0); Hemoglobin 9.2 g/dL (11.5-15.3); Lymphocytes # 1.3 10^3/uL (0.8-4.8); Lymphocytes % 12.4 %; Mean Corpuscular HGB Conc 30.8 g/dL (30.0-36.0); Mean Corpuscular Hemoglobin 29.6 pg (28.0-34.0); Mean Corpuscular Volume 96.1 fL (81-99); Mean Platelet Volume 11.6 fL (7.4-10.4); Monocytes # 1.1 10^3/uL (0.2-0.9); Monocytes % 10.2 %; Neutrophils # 7.66 10^3/uL (1.8-7.7); Neutrophils % 72.7 %; Nucleated Red Blood Cells % 0 %; Platelet Count 193 10^3/cmm (130-400); Red Blood Count 3.11 10^6/uL (4.1-5.3); Red Cell Distribution Width 13.6 % (12.1-15.1); White Blood Count 10.5 10^3/uL (4.0-10.0)
[2020-10-25 03:19] LABS: Anion Gap 14.3 (5-19); Blood Urea Nitrogen 23 mg/dL (8-23); Calcium 8.4 mg/dL (8.5-10.5); Carbon Dioxide 20 mmol/L (22-29); Chloride 106 mmol/L (98-107); Glucose 108 mg/dL (65-115); Potassium 4.3 mmol/L (3.5-5.1); Sodium 136 mmol/L (136-145)
[2020-10-25 03:23] LABS: Magnesium 1.9 mg/dL (1.7-2.3)
[2020-10-25] MEDS: famotidine 20 mg/2 mL INJ IVP (06:25)
[2020-10-25 06:41] LABS: Glucose Point of Care 90 mg/dL (70-110)
[2020-10-25] MEDS: sodium bicarbonate 650 mg Tablet PO ×2 (08:48→18:11)
[2020-10-25] MEDS: sennosides-docusate Tablet 1 TAB PO ×2 (08:48→18:11)
[2020-10-25] MEDS: cefTRIAXone 1,000 MG in sodium chloride 0.9% (plus) 50 ML 100 MG IV (10:29)
--- NOTE | 2020-10-25 10:58 | PM.PN ---
Subjective Subjective: Interval history: feels tired, ambulating in hallway with walker and assistance Medications: Reviewed: Yes Medication Review Details: received 1 dose furosemide 20 mg IV yesterday Vitals/I&O/Wt Last Vital Signs Temp 98.5 F 10/25/20 07:23 Pulse 77 10/25/20 07:23 Resp 17 10/25/20 07:23 BP 155/80 10/25/20 07:23 Pulse Ox 99 10/25/20 07:23 10/24/20 10/25/20 10/25/20 22:59 06:59 14:59 Intake Total 360 / 2180 60 / 60 Output Total 1145 / 2955 650 / 3605 75 / 75 Balance -785 / -775 -650 / -1425 -15 / -15 Physical Exam Const: COMMON NORMALS: no acute distress GENERAL APPEARANCE: cooperative Urinary Catheter Management^: Castillo: Cath Placed During This Visit: yes, but has since been removed by the nurse Reason for Continuing Indwelling Catheter: Decision to DC Catheter Urinary Catheter Date of Insertion: 10/21/20 Urinary Catheter Time of Insertion: 11:15 Date Urinary Catheter Removed: 10/25/20 Time Urinary Catheter Discontinued: 10:30 Data : 10/25/20 02:21 10/25/20 02:21 Micro: Microbiology 10/23/20 19:04 Urine Culture - Preliminary Urine,Clean Catch A&P Additional A&P Information 1. Acute kidney injury, nonoliguric, renal function improving 2. Mild rhabdomyolysis, repeat CK 3. Hypertension, reasonably well-controlled 4. Mild hyponatremia, improved 5. Metabolic acidosis, improved, continue sodium bicarbonate. 6. Anemia, s/p transfusion pRBC, Hb stable 7. Volume overload, improved 8. UTI, receiving IV rocephine, culture pending Recommend: remove castillo Attestations Medical Necessity Statement*: per primary service Time Spent in Patient Care: 16 - 35 minutes Coding Level of Care Code Acute Angular Js Developer for Marianne Grewal
[2020-10-25 11:25] LABS: Glucose Point of Care 124 mg/dL (70-110)
--- NOTE | 2020-10-25 11:29 | PM.PN ---
Subjective Subjective: Interval history: Patient reports feeling much better today. The pain is well controlled. No nausea or vomiting. No fever or chills. No bowel movements today but had several loose bowel movements yesterday. Medications: Reviewed: Yes Medication Review Details: Generic Name Dose Route Start Last Admin Trade Name Emeli PRN Reason Stop Dose Admin Diphenhydramine HC l 12.5 mg 10/21/20 17:52 10/24/20 20:54 Diphenhydramine 50 Mg/Ml Sdv 1ml IVP 12.5 mg Q6H PRN Administration ITCHING Ceftriaxone Sodium 1,000 mg/ 50 mls @ 100 mls/ hr 10/24/20 11:30 10/25/20 10:29 Sodium Chloride IV 100 mls/hr Q24H YURI Administration Protocol Insulin Aspart 0 unit 10/22/20 21:00 10/24/20 21:53 Insulin Aspart 1 00 Unit/1 Ml SUBCUT Not Given BEDTIME YURI Protocol Phenazopyridine HC l 200 mg 10/24/20 13:46 10/24/20 15:48 Phenazopyridine 100 Mg Tablet PO 200 mg Q8H PRN Administration DYSURIA Senna/Docusate Sod ium 1 tab 10/24/20 09:00 10/25/20 08:48 Sennosides-Docus ate Tablet PO 1 tab BID YURI Administration Sodium Bicarbonate 650 mg 10/24/20 18:00 10/25/20 08:48 Sodium Bicarbona te 650 Mg Tablet PO 650 mg BID YURI Administration Vitals/I&O/Wt Last Vital Signs Temp 98.5 F 10/25/20 07:23 Pulse 77 10/25/20 07:23 Resp 17 10/25/20 07:23 BP 155/80 10/25/20 07:23 Pulse Ox 99 10/25/20 07:23 10/24/20 10/25/20 10/25/20 22:59 06:59 14:59 Intake Total 360 / 2180 60 / 60 Output Total 1145 / 2955 650 / 3605 75 / 75 Balance -785 / -775 -650 / -1425 -15 / -15 Physical Exam Narrative: EXAM NARRATIVE: The patient is awake alert oriented. No acute distress. Mood and affect are appropriate. Responses are adequate. Normal speech. No facial asymmetry. No focal muscle weakness. Skin is warm and dry. Moist mucous membranes Eyes PERRLA, extraocular muscles are intact Neck supple. No JVD Lungs sound much better today. No respiratory distress no crackles. Heart S1, S2, regular Abdomen less distended, soft, nontender, bowel sounds are present Extremities: Mild pedal edema. No cyanosis or calf tenderness bilaterally. Urinary Catheter Management^: Cagle: Cath Placed During This Visit: yes, but has since been removed by the nurse Reason for Continuing Indwelling Catheter: Decision to DC Catheter Urinary Catheter Date of Insertion: 10/21/20 Urinary Catheter Time of Insertion: 11:15 Date Urinary Catheter Removed: 10/25/20 Time Urinary Catheter Discontinued: 10:30 Data : 10/25/20 02:21 10/25/20 02:21 Micro: Microbiology 10/23/20 19:04 Urine Culture - Preliminary Urine,Clean Catch A&P Additional A&P Information 80-year-old female with past medical history of hypertension who underwent exlap with cholecystectomy, appendectomy, abdominal wall hernia repair, and right renal cyst resection by Dr. Mosley. The patient developed oliguria and mild acute kidney injury. I was kindly consulted by Dr. Mosley to manage her medical conditions postoperatively. Pain management, diet and antibiotics per Dr. Mosley. Acute kidney injury, oliguric. Most likely prerenal secondary to transient fluid depletion. Currently improving. Well-hydrated currently. Fluid overload. Resolving. Will give another small dose of Lasix today. Not on IV fluids currently. UTI. Rocephin. UCS is pending. Hypertension. Well-controlled. Continue current management. Acute metabolic acidosis. Could be secondary to dehydration and or acute kidney injury. Stable. On bicarb tabs. Appreciate help from nephrology team. Anemia. Most likely secondary to fluid overload and hydration. Some expected acute blood loss due to surgery is possible. The patient received transfusion of 1 unit of PRBCs. Hemoglobin is stable. Hyperglycemia. Most likely due to IV fluids containing dextrose. A1c level is within normal range. Continue insulin sliding scale. DVT prophylaxis. Heparin stopped due to anemia. Continue teds and SCDs. Encouraged ambulation. Thank you very much for allowing me to precipitate in the treatment of this patient. The plan of care was discussed with the patient and her family at the bedside. They verbalized understanding and agreement. Discussed with the multidisciplinary team. Discussed with the PT. Recommending home with home health care. The plan of care was discussed also with Dr. Mosley. Attestations Medical Necessity Statement*: Possible discharge soon. Still monitoring her renal function hoping for more improvements. Coding Level of Care Code Acute Product Demonstrator for Marianne Grewal
[2020-10-25] MEDS: FUROsemide 20 mg Tablet PO (12:35)
--- NOTE | 2020-10-25 14:24 | PC.CHAP ---
Pastoral Care Encounter/Spiritual Assessment Type of Contact [] Declined spot machine operator visit [] Patient/Family/Request visit [] Outpatient visit [xx] Follow-up visit [] Physician referral [] Code/Alert [xx] Routine visit [] Staff referral [] Actively dying [] Patient sleeping [] Family support [] [] Out of room [] Palliative care [] [] Receiving care in room [] Pre-surgical visit [] Trauma [xxx] Long length of stay [] ICU visit [] Other: Relational/Emotional Strength [xx] Patient feels connected with others/family/visitors/staff [] Distress [] Loneliness/isolation [] Abandonment Spirituality of Patient [xx] Person of Margy [xx] Attends Zoroastrian of their Margy [xx] Believes in Prayer [xx] Reads Bible or Mormonism materials [] There are Spiritual issues to be addressed Aircraft Electronics Technical Officer Interventions [xx] Prayer [xx] Active listening [xx] Non-anxious presence [] Spiritual/emotional support [] Crisis/trauma care [] Spiritual counseling [] Bereavement support [] Provided bereavement packet [] Provided Bible/devotional materials [] Provided toy/stuffed animal, coloring book to patient or family member [] Provided Communion [] Anointing/[facility] [place] [] Salvation [xx] Completed spiritual assessment [] Other: Impact on Illness or Injury [] Angry [] Fearful [] Anxious [] Often cries [] Exhaustion [] Unable to work [] Unable to attend scientologist [] Unable to walk/stand [] Unable to read [] Unable to drive [] Unable to eat/drink [] Unable to sleep [] Unable to be with family [] Patient intubated [] Other: Summary Patient very talkative and pleasant. Daughter present to help her with needs and has some medical training. Patient does not expect to be discharged for 3 or 4 more days to to surgery complications. She is trying to make best of her current situation. Time spent with patient 22 minutes
--- NOTE | 2020-10-25 15:18 | PC.NURSE ---
family and patient were educated on stripping and emptying both JAZMYN drains. verbalize understanding, patients family in room states they have medical help at home as well.
[2020-10-25] MEDS: HYDROcodone-acetaminophen 5-325 mg Tablet 1 TAB PO (15:34)
--- NOTE | 2020-10-25 16:33 | PM.PN ---
Subjective Subjective: Interval history: Patient feeling a bit weak today, ambulating the halls yesterday, no nausea or vomiting, tolerating regular diet, had a bowel movement yesterday Vitals/I&O/Wt Last Vital Signs Temp 98.3 F 10/25/20 16:00 Pulse 87 10/25/20 16:00 Resp 18 10/25/20 16:00 BP 166/83 10/25/20 16:00 Pulse Ox 95 10/25/20 16:00 10/25/20 10/25/20 10/25/20 06:59 14:59 22:59 Intake Total 180 / 180 Output Total 650 / 3605 75 / 260 185 / 260 Balance -650 / -1425 105 / -80 -185 / -80 Physical Exam Narrative: EXAM NARRATIVE: Abdomen: Soft, nondistended, tender, right JAZMYN drain output is serosanguineous for his left JAZMYN drain output is mainly sanguinous. Incision healing well, Cagle to gravity Currently on 4 L oxygen Urinary Catheter Management^: Cagle: Cath Placed During This Visit: yes, but has since been removed by the nurse Reason for Continuing Indwelling Catheter: Decision to DC Catheter Urinary Catheter Date of Insertion: 10/21/20 Urinary Catheter Time of Insertion: 11:15 Date Urinary Catheter Removed: 10/25/20 Time Urinary Catheter Discontinued: 10:30 Data : 10/25/20 02:21 10/25/20 02:21 Micro: Microbiology 10/23/20 19:04 Urine Culture - Preliminary Urine,Clean Catch A&P Assessment and plan (1) History of incisional hernia repair: Status post incisional hernia repair with mesh, cholecystectomy, appendectomy with low urine output which is finally improving. Patient is hemodynamically stable, had BM GI soft diet Colace and senna for bowel regimen UTI: Start Rocephin, WBC down to 10.5 DVT prophylaxis: SCD, hold heparin but since patient had significant JAZMYN drain output which is serosanguineous IV fluids discontinued, creatinine down to 1.7 Incentive spirometry, wean O2 currently on 4 L Hold all antihypertensives Cagle to gravity for adequate I's and O monitoring Pepcid for GI prophylaxis Daily labs Hemoglobin stable at 9.2 after 1 unit PRBC Status: Acute (2) Acute renal failure: Appears to be improving Appreciate nephrology and Dr. Turner input for management of acute renal failure Status: Acute Attestations Medical Necessity Statement*: Status post incisional hernia repair, acute renal failure resolving, will need 2 more nights of inpatient stay Coding Level of Care Code Acute Outreach Counselor for Chg Fwd Diagnoses History of incisional hernia repair Z98.890; Z87.19 Acute renal failure N17.9
[2020-10-25 17:09] LABS: Glucose Point of Care 111 mg/dL (70-110)
[2020-10-25] MEDS: famotidine 20 mg Tablet PO (18:11)
--- NOTE | 2020-10-25 18:29 | PC.NURSE ---
SHIFT SUMMARY Patient has done well this shift, she has ambulated 3 times; once with PT and twice with nursing for a total of 150feet. JAZMYN drain on the left abd is draining serous drainage with a total output of 85mL today. Jazmyn drain on the right side of the abdomen is draining serosanguenous drainage with an output of 160mL today. Incision to medial abd potato chip maker, well approximated. Cagle catheter was removed approximately 1030 and patient has voided multiple times, mostly being incontinent. Pain medication was changed to PRN instead of being scheduled throughout the day. she has tolerated po pain medications well. pt is resting in the chair at this time, abd binder in place. call light within reach.
[2020-10-25] MEDS: diphenhydrAMINE 50 mg/mL SDV 1mL 12.5 MG IVP (22:07)
[2020-10-25 22:09] LABS: Glucose Point of Care 125 mg/dL (70-110)
[2020-10-26] VITALS (8 sets, daily range): BP systolic 132–182; BP diastolic 76–101; PULSE 73–87; RESP 16–18; TEMP 36.7–37.1; O2SAT 91–98
[2020-10-26] MEDS: HYDROcodone-acetaminophen 5-325 mg Tablet 1 TAB PO ×4 (02:11→22:39)
[2020-10-26 04:56] LABS: Basophils # 0.1 10^3/uL (0.0-0.1); Basophils % 0.5 %; Eosinophils # 0.5 10^3/uL (0.0-0.8); Eosinophils % 5.1 %; Hematocrit 27.4 % (37.0-47.0); Hemoglobin 8.5 g/dL (11.5-15.3); Lymphocytes # 1.3 10^3/uL (0.8-4.8); Lymphocytes % 13.4 %; Mean Corpuscular Hemoglobin 29.1 pg (28.0-34.0); Mean Corpuscular Volume 93.8 fL (81-99); Mean Platelet Volume 11.2 fL (7.4-10.4); Monocytes # 1.1 10^3/uL (0.2-0.9); Monocytes % 11.3 %; Neutrophils # 6.68 10^3/uL (1.8-7.7); Neutrophils % 69.1 %; Nucleated Red Blood Cells % 0 %; Platelet Count 244 10^3/cmm (130-400); Red Blood Count 2.92 10^6/uL (4.1-5.3); Red Cell Distribution Width 13.3 % (12.1-15.1); White Blood Count 9.7 10^3/uL (4.0-10.0)
[2020-10-26 05:22] LABS: Albumin Level 2.7 g/dL (3.5-5.2); Anion Gap 13.8 (5-19); Blood Urea Nitrogen 25 mg/dL (8-23); Calcium 8.3 mg/dL (8.5-10.5); Carbon Dioxide 22 mmol/L (22-29); Chloride 106 mmol/L (98-107); Glucose 116 mg/dL (65-115); Magnesium 1.9 mg/dL (1.7-2.3); Phosphorus 2.5 mg/dL (2.5-4.5); Potassium 3.8 mmol/L (3.5-5.1); Sodium 138 mmol/L (136-145)
[2020-10-26 05:25] LABS: Creatine Phosphokinase 399 U/L (26-192)
[2020-10-26] MEDS: famotidine 20 mg Tablet PO ×2 (06:47→17:37)
[2020-10-26 06:55] LABS: Glucose Point of Care 98 mg/dL (70-110)
[2020-10-26] MEDS: sodium bicarbonate 650 mg Tablet PO ×2 (08:23→17:37)
[2020-10-26] MEDS: sennosides-docusate Tablet 1 TAB PO ×2 (08:23→17:37)
--- NOTE | 2020-10-26 09:40 | PC.SOCIAL ---
IMM Update Pg.2 of IMM updated and explained to patient and daughter at bedside. Copy provided.
--- NOTE | 2020-10-26 09:59 | PM.PN ---
Subjective Subjective: Interval history: complains of back muscle spasm , castillo out - urinating without difficulty Medications: Reviewed: Yes Vitals/I&O/Wt Last Vital Signs Temp 98.7 F 10/26/20 08:00 Pulse 78 10/26/20 09:28 Resp 18 10/26/20 09:28 BP 132/76 10/26/20 08:00 Pulse Ox 96 10/26/20 09:28 10/25/20 10/26/20 10/26/20 22:59 06:59 14:59 Intake Total 600 / 780 840 / 840 Output Total 655 / 730 145 / 875 35 / 35 Balance -55 / 50 -145 / -95 805 / 805 Physical Exam Urinary Catheter Management^: Castillo: Cath Placed During This Visit: yes, but has since been removed by the nurse Reason for Continuing Indwelling Catheter: Decision to DC Catheter Urinary Catheter Date of Insertion: 10/21/20 Urinary Catheter Time of Insertion: 11:15 Date Urinary Catheter Removed: 10/25/20 Time Urinary Catheter Discontinued: 10:30 Data : 10/26/20 04:35 10/26/20 04:35 Other Labs: Ck 399, Albumin 2.7, Ca 8.3, Mg 1.9, phos 2.5 Micro: Microbiology 10/24/20 21:15 Urine Culture - Preliminary Urine Catheterized 10/23/20 19:04 Urine Culture - Final Urine,Clean Catch A&P Additional A&P Information 1. Acute kidney injury, nonoliguric, renal function improving 2. Mild rhabdomyolysis, improving 3. Hypertension, reasonably well-controlled 4. Mild hyponatremia, resolved 5. Metabolic acidosis, resolved, discontinue sodium bicarbonate. 6. Anemia, s/p transfusion pRBC 7. Volume overload, improved 8. Urine culture neg x 2, castillo out, can discontinue antibiotics Recommend: Avoid NSAIDs if possible. will sign off. please call if needed Attestations Medical Necessity Statement*: per primary service Coding Level of Care Code Acute Clean Up Person for Marianne Grewal
[2020-10-26 11:03] LABS: Glucose Point of Care 173 mg/dL (70-110)
--- NOTE | 2020-10-26 11:31 | P.PN_ITS ---
Subjective Subjective: Interval history: Patient feeling weak, passing flatus, no nausea or vomiting, using oxygen at night, drain output appears to be decreasing. Cagle catheter discontinued Vitals/I&O/Wt Last Vital Signs Temp 98.7 F 10/26/20 08:00 Pulse 78 10/26/20 09:28 Resp 18 10/26/20 09:28 BP 132/76 10/26/20 08:00 Pulse Ox 96 10/26/20 09:28 10/25/20 10/26/20 10/26/20 22:59 06:59 14:59 Intake Total 600 / 1140 840 / 840 Output Total 655 / 875 145 / 875 35 / 35 Balance -55 / 265 -145 / 265 805 / 805 Physical Exam Narrative: EXAM NARRATIVE: Abdomen: Soft, nondistended, minimally tender, right JAZMYN serosanguineous, left JAZMYN sanguinous Urinary Catheter Management^: Cagle: Cath Placed During This Visit: yes, but has since been removed by the nurse Reason for Continuing Indwelling Catheter: Decision to DC Catheter Urinary Catheter Date of Insertion: 10/21/20 Urinary Catheter Time of Insertion: 11:15 Date Urinary Catheter Removed: 10/25/20 Time Urinary Catheter Discontinued: 10:30 Data : 10/26/20 04:35 10/26/20 04:35 Micro: Microbiology 10/24/20 21:15 Urine Culture - Preliminary Urine Catheterized 10/23/20 19:04 Urine Culture - Final Urine,Clean Catch A&P Assessment and plan (1) History of incisional hernia repair: Status post incisional hernia repair with mesh, cholecystectomy, appendectomy with low urine output which is resolving patient is hemodynamically stable GI soft diet Colace and senna for bowel regimen, added lactulose 10 mg daily UTI: Start Rocephin, WBC down to 9.7 DVT prophylaxis: SCD, hold heparin but since patient had significant JAZMYN drain output which is serosanguineous Incentive spirometry, wean O2, home O2 eval since she needs oxygen at night Hold all antihypertensives Pepcid for GI prophylaxis Daily labs Hemoglobin: 8.5, acute blood loss anemia, start ferrous sulfate 325 mg twice daily Status: Acute (2) Acute renal failure: Creatinine down to 1.4, resolving Appreciate nephrology and Dr. Turner input for management of acute renal failure Status: Acute Attestations Medical Necessity Statement*: Status post open incisional hernia repair with mesh, hopefully patient can go home in the next 24 to 48 hours Coding Level of Care Code Acute Recyclable Products Sorter for Marianne Grewal Diagnoses History of incisional hernia repair Z98.890; Z87.19 Acute renal failure N17.9
[2020-10-26] MEDS: cefTRIAXone 1,000 MG in sodium chloride 0.9% (plus) 50 ML 100 MG IV (12:15)
--- NOTE | 2020-10-26 13:00 | P.PN_ITS ---
Subjective Subjective: Interval history: The patient is doing well. Reports some chronic back pain. No real abdominal pain. No nausea or vomiting. No fevers or chills. No bowel movement since yesterday. No shortness of breath or cough. Medications: Reviewed: Yes Medication Review Details: Generic Name Dose Route Start Last Admin Trade Name Freq PRN Reason Stop Dose Admin Hydrocodone Bitart /Acetaminophen 1 tab 10/25/20 08:52 10/26/20 08:24 Hydrocodone-Acet aminophen 5-325 Mg Tablet PO 1 tab Q6H PRN Administration MODERATE PAIN Albuterol Sulfate 2.5 mg 10/25/20 19:51 10/25/20 20:39 Albuterol 2.5 Mg /0.5 Ml Neb INHALATION 2.5 mg Q4H.RESPIRATORY P RN Administration SHORTNESS OF VANDANA TH Diphenhydramine HC l 12.5 mg 10/21/20 17:52 10/25/20 22:07 Diphenhydramine 50 Mg/Ml Sdv 1ml IVP 12.5 mg Q6H PRN Administration ITCHING Famotidine 20 mg 10/25/20 18:30 10/26/20 06:47 Famotidine 20 Mg Tablet PO 20 mg Q12H YURI Administration Ceftriaxone Sodium 1,000 mg/ 50 mls @ 100 mls/ hr 10/24/20 11:30 10/26/20 12:15 Sodium Chloride IV 100 mls/hr Q24H YURI Administration Protocol Insulin Aspart 0 unit 10/22/20 21:00 10/25/20 22:16 Insulin Aspart 1 00 Unit/1 Ml SUBCUT Not Given BEDTIME YURI Protocol Phenazopyridine HC l 200 mg 10/24/20 13:46 10/24/20 15:48 Phenazopyridine 100 Mg Tablet PO 200 mg Q8H PRN Administration DYSURIA Senna/Docusate Sod ium 1 tab 10/24/20 09:00 10/26/20 08:23 Sennosides-Docus ate Tablet PO 1 tab BID YURI Administration Sodium Bicarbonate 650 mg 10/24/20 18:00 10/26/20 08:23 Sodium Bicarbona te 650 Mg Tablet PO 650 mg BID YURI Administration Vitals/I&O/Wt Last Vital Signs Temp 98.5 F 10/26/20 11:54 Pulse 87 01/23/21 11:54 Resp 17 10/26/20 11:54 BP 166/95 10/26/20 11:54 Pulse Ox 95 10/26/20 11:54 10/25/20 10/26/20 10/26/20 22:59 06:59 14:59 Intake Total 600 / 830 840 / 840 Output Total 655 / 730 145 / 875 155 / 155 Balance -55 / 100 -145 / -45 685 / 685 Physical Exam Narrative: EXAM NARRATIVE: The patient is awake alert oriented. No acute distress. Mood and affect are appropriate. Responses are adequate. Normal speech. No facial asymmetry. No focal muscle weakness. Skin is warm and dry. Moist mucous membranes Eyes PERRLA, extraocular muscles are intact Neck supple. No JVD Lungs sound much better today. No respiratory distress no crackles. Heart S1, S2, regular Abdomen less distended, soft, nontender, bowel sounds are present Extremities: Mild pedal edema. No cyanosis or calf tenderness bilaterally. Urinary Catheter Management^: Cagle: Cath Placed During This Visit: yes, but has since been removed by the nurse Reason for Continuing Indwelling Catheter: Decision to DC Catheter Urinary Catheter Date of Insertion: 10/21/20 Urinary Catheter Time of Insertion: 11:15 Date Urinary Catheter Removed: 10/25/20 Time Urinary Catheter Discontinued: 10:30 Data : 10/26/20 04:35 10/26/20 04:35 Micro: Microbiology 10/24/20 21:15 Urine Culture - Preliminary Urine Catheterized 10/23/20 19:04 Urine Culture - Final Urine,Clean Catch A&P Additional A&P Information 80-year-old female with past medical history of hypertension who underwent exlap with cholecystectomy, appendectomy, abdominal wall hernia repair, and right renal cyst resection by Dr. Mosley. The patient developed oliguria and mild acute kidney injury. I was kindly consulted by Dr. Mosley to manage her medical conditions postoperatively. Pain management, diet and antibiotics per Dr. Mosley. Acute kidney injury, oliguric. Resolving. Continue oral fluid hydration. Further management per Dr. Herndon, nephrology. I appreciate her input. Fluid overload. Resolved. Stable. UTI. Rocephin. UCS is pending. We will switch to p.o. antibiotics at discharge. Hypertension. Well-controlled. Continue current management. Acute metabolic acidosis. Could be secondary to dehydration and or acute kidney injury. Stable. Anemia. Most likely secondary to fluid overload and hydration. Some expected acute blood loss due to surgery is possible. The patient received transfusion of 1 unit of PRBCs. Currently stable. Hyperglycemia. Most likely due to IV fluids containing dextrose. A1c level is within normal range. Continue insulin sliding scale. DVT prophylaxis. Heparin stopped due to anemia. Continue teds and SCDs. Encouraged ambulation. From medical standpoint, the patient probably would be able to go home tomorrow. We will review and adjust her discharge home medications at that time. Thank you very much for allowing me to precipitate in the treatment of this patient. Attestations Medical Necessity Statement*: Possible discharge tomorrow or Coding Level of Care Code Acute Medical Receptionist Medical Assistant for Marianne Grewal
[2020-10-26 16:55] LABS: Glucose Point of Care 143 mg/dL (70-110)
[2020-10-26] MEDS: ferrous sulfate EC 325 mg Tablet PO (17:37)
[2020-10-26] MEDS: hyDRALAzine 20 mg/mL INJ 1 mL 10 MG IVP (20:16)
[2020-10-26] MEDS: lactulose oral liq 20 gm/30 mL UDC 10 GM PO (20:20)
--- NOTE | 2020-10-26 21:00 | PC.NURSE ---
O2 Assisted patient with standing and changing gown and adjusting abdominal binder. Patient stood approx. 5-6 minutes while on room air and desatted to 86%. Patient placed back on O2 at 3L/NC with return of sats to 94%/ Patient ambulated to door of room on 3L NC and from door to bed on room air. Sats noted to drop to 91% with small amount of ambulation. Patient to be placed on continuous pulse ox by RT for monitoring throughout the night.
[2020-10-26 21:04] LABS: Glucose Point of Care 115 mg/dL (70-110)
[2020-10-26] MEDS: diphenhydrAMINE 50 mg/mL SDV 1mL 12.5 MG IVP (22:39)
[2020-10-27] VITALS (11 sets, daily range): BP systolic 153–170; BP diastolic 75–100; PULSE 71–93; RESP 16–19; TEMP 36.5–36.6; O2SAT 86–97
[2020-10-27 05:19] LABS: Basophils # 0.1 10^3/uL (0.0-0.1); Basophils % 0.5 %; Eosinophils # 0.4 10^3/uL (0.0-0.8); Eosinophils % 3.8 %; Hematocrit 30.4 % (37.0-47.0); Hemoglobin 9.6 g/dL (11.5-15.3); Lymphocytes # 1.3 10^3/uL (0.8-4.8); Lymphocytes % 12.8 %; Mean Corpuscular HGB Conc 31.6 g/dL (30.0-36.0); Mean Corpuscular Hemoglobin 29.7 pg (28.0-34.0); Mean Corpuscular Volume 94.1 fL (81-99); Mean Platelet Volume 11.3 fL (7.4-10.4); Monocytes % 10.5 %; Neutrophils % 71.5 %; Nucleated Red Blood Cells % 0 %; Platelet Count 239 10^3/cmm (130-400); Red Blood Count 3.23 10^6/uL (4.1-5.3); Red Cell Distribution Width 13.6 % (12.1-15.1); White Blood Count 9.9 10^3/uL (4.0-10.0)
[2020-10-27 05:48] LABS: Alanine Aminotransferase 40 U/L (0-33); Albumin Level 2.9 g/dL (3.5-5.2); Alkaline Phosphatase 62 IU/L (35-105); Anion Gap 13.7 (5-19); Aspartate Amino Transferase 36 U/L (0-32); Blood Urea Nitrogen 21 mg/dL (8-23); Calcium 8.8 mg/dL (8.5-10.5); Carbon Dioxide 22 mmol/L (22-29); Chloride 105 mmol/L (98-107); Glucose 118 mg/dL (65-115); Osmolality Calculated 288 mOsm/kg (285-295); Potassium 3.7 mmol/L (3.5-5.1); Sodium 137 mmol/L (136-145); Total Bilirubin 0.2 mg/dL (0.15-1.2)
[2020-10-27] MEDS: famotidine 20 mg Tablet PO (06:00)
[2020-10-27] MEDS: hyDRALAzine 20 mg/mL INJ 1 mL 10 MG IVP (06:01)
[2020-10-27 06:29] LABS: Glucose Point of Care 108 mg/dL (70-110)
[2020-10-27] MEDS: lactulose oral liq 20 gm/30 mL UDC 10 GM PO (07:28)
[2020-10-27] MEDS: HYDROcodone-acetaminophen 5-325 mg Tablet 1 TAB PO ×2 (07:28→13:27)
[2020-10-27] MEDS: sennosides-docusate Tablet 1 TAB PO (07:29)
[2020-10-27] MEDS: ferrous sulfate EC 325 mg Tablet PO (07:29)
[2020-10-27] MEDS: sodium bicarbonate 650 mg Tablet PO (07:29)
[2020-10-27 10:39] LABS: Glucose Point of Care 144 mg/dL (70-110)
--- NOTE | 2020-10-27 11:10 | PM.PN ---
Subjective Subjective: Interval history: The patient reports feeling well. Reports tiredness. Denies any uncontrolled pain. Denies shortness of breath. No nausea or vomiting. No fever or chills. Eager to go home. Medications: Reviewed: Yes Medication Review Details: Generic Name Dose Route Start Last Admin Trade Name Freq PRN Reason Stop Dose Admin Hydrocodone Bitart /Acetaminophen 1 tab 10/25/20 08:52 10/27/20 07:28 Hydrocodone-Acet aminophen 5-325 Mg Tablet PO 1 tab Q6H PRN Administration MODERATE PAIN Albuterol Sulfate 2.5 mg 10/25/20 19:51 10/25/20 20:39 Albuterol 2.5 Mg /0.5 Ml Neb INHALATION 2.5 mg Q4H.RESPIRATORY P RN Administration SHORTNESS OF VANDANA TH Diphenhydramine HC l 12.5 mg 10/21/20 17:52 10/26/20 22:39 Diphenhydramine 50 Mg/Ml Sdv 1ml IVP 12.5 mg Q6H PRN Administration ITCHING Famotidine 20 mg 10/25/20 18:30 10/27/20 06:00 Famotidine 20 Mg Tablet PO 20 mg Q12H YURI Administration Ferrous Sulfate 325 mg 10/26/20 18:00 10/27/20 07:29 Ferrous Sulfate Ec 325 Mg Tablet PO 325 mg BIDWM YURI Administration Hydralazine HCl 10 mg 10/22/20 18:46 10/27/20 06:01 Hydralazine 20 M g/Ml Inj 1 Ml IVP 10 mg Q4H PRN Administration HYPERTENSION Ceftriaxone Sodium 1,000 mg/ 50 mls @ 100 mls/ hr 10/24/20 11:30 10/26/20 12:15 Sodium Chloride IV 100 mls/hr Q24H YURI Administration Protocol Insulin Aspart 0 unit 10/22/20 21:00 10/26/20 21:11 Insulin Aspart 1 00 Unit/1 Ml SUBCUT Not Given BEDTIME YURI Protocol Lactulose 10 gm 10/26/20 21:00 10/27/20 07:28 Lactulose Oral L iq 20 Gm/30 Ml Udc PO 10 gm DAILY YURI Administration Phenazopyridine HC l 200 mg 10/24/20 13:46 10/24/20 15:48 Phenazopyridine 100 Mg Tablet PO 200 mg Q8H PRN Administration DYSURIA Senna/Docusate Sod ium 1 tab 10/24/20 09:00 10/27/20 07:29 Sennosides-Docus ate Tablet PO 1 tab BID YURI Administration Sodium Bicarbonate 650 mg 10/24/20 18:00 10/27/20 07:29 Sodium Bicarbona te 650 Mg Tablet PO 650 mg BID YURI Administration Vitals/I&O/Wt Last Vital Signs Temp 97.7 F 10/27/20 07:15 Pulse 93 10/27/20 09:25 Resp 16 10/27/20 09:25 BP 161/75 10/27/20 07:15 Pulse Ox 97 10/27/20 09:25 10/26/20 10/27/20 10/27/20 22:59 06:59 14:59 Intake Total 120 / 960 360 / 1320 360 / 360 Output Total 185 / 340 95 / 435 60 / 60 Balance -65 / 620 265 / 885 300 / 300 Physical Exam Narrative: EXAM NARRATIVE: The patient is awake alert oriented. No acute distress. Mood and affect are appropriate. Responses are adequate. Normal speech. No facial asymmetry. No focal muscle weakness. Skin is warm and dry. Moist mucous membranes Eyes PERRLA, extraocular muscles are intact Neck supple. No JVD Slightly decreased breath sounds bibasilarly. No significant crackles or wheezes.. No respiratory distress no crackles. Heart S1, S2, regular Abdomen less distended, soft, nontender, bowel sounds are present Extremities: Mild pedal edema. No cyanosis or calf tenderness bilaterally. Urinary Catheter Management^: Cagle: Cath Placed During This Visit: yes, but has since been removed by the nurse Reason for Continuing Indwelling Catheter: Decision to DC Catheter Urinary Catheter Date of Insertion: 10/21/20 Urinary Catheter Time of Insertion: 11:15 Date Urinary Catheter Removed: 10/25/20 Time Urinary Catheter Discontinued: 10:30 Data : 10/27/20 04:57 10/27/20 04:57 Micro: Microbiology 10/24/20 21:15 Urine Culture - Preliminary Urine Catheterized 10/23/20 19:04 Urine Culture - Final Urine,Clean Catch A&P Additional A&P Information 80-year-old female with past medical history of hypertension who underwent exlap with cholecystectomy, appendectomy, abdominal wall hernia repair, and right renal cyst resection by Dr. Mosley. The patient developed oliguria and mild acute kidney injury. I was kindly consulted by Dr. Mosley to manage her medical conditions postoperatively. Pain management, diet and antibiotics per Dr. Mosley. Acute kidney injury, oliguric. Resolving. Continue oral fluid hydration. Further management per Dr. Herndon, nephrology. I appreciate her input. Fluid overload. Resolved doses of furosemide. Stable. UTI. UCS was negative. Will complete Rocephin today. Hypertension. Blood pressure is elevated. We will resume her home medications today at discharge. Acute metabolic acidosis. Could be secondary to dehydration and or acute kidney injury. Resolved. Anemia. Most likely secondary to fluid overload and hydration. Some expected acute blood loss due to surgery is possible. The patient received transfusion of 1 unit of PRBCs. Currently stable. Hyperglycemia. Most likely due to IV fluids containing dextrose. A1c level is within normal range. Mild hypoxia when sleeping most likely related to obstructive sleep apnea and or obesity hypoventilation syndrome. Case management will arrange home O2 prior to discharge. I recommend follow-up with welding machine setter for additional testing/PFTs. Might benefit from CPAP. The plan of care was discussed with the patient and nursing staff. The patient looks ready for discharge from medical standpoint. Discussed with Dr. Mosley. Thank you very much for allowing me to precipitate in the treatment of this patient. Attestations Medical Necessity Statement*: Possible discharge today Coding Level of Care Code Acute Marble Setter Helper for Marianne Grewal
[2020-10-27] MEDS: cefTRIAXone 1,000 MG in sodium chloride 0.9% (plus) 50 ML 100 MG IV (11:16)
[2020-10-27] MEDS: ondansetron 2 mg/ML SDV 2 mL 4 MG IVP (11:16)
--- NOTE | 2020-10-27 11:37 | PC.SOCIAL ---
IMM Update Pg. 2 of IMM updated and reviewed with patient who verbalized understanding. Copy provided.
[2020-10-28 19:17] LABS: Globulin 2.6 g/dL (1.3-4.6); Total Protein 5.5 g/dL (6.6-8.7)
--- NOTE | 2020-10-31 11:39 | P.PN_ITS ---
Subjective Subjective: Interval history: Patient ready to go home today, tolerated regular diet, had bowel movements Vitals/I&O/Wt Last Vital Signs Temp 97.7 F 10/27/20 14:23 Pulse 89 10/27/20 14:23 Resp 17 10/27/20 14:23 BP 161/83 10/27/20 14:23 Pulse Ox 96 10/27/20 14:23 Physical Exam Narrative: EXAM NARRATIVE: Abdomen: Soft, minimally tender, nondistended, incision clean dry intact, JAZMYN drain output is serosanguineous Urinary Catheter Management^: Cagle: Cath Placed During This Visit: yes, but has since been removed by the nurse Reason for Continuing Indwelling Catheter: Decision to DC Catheter Urinary Catheter Date of Insertion: 10/21/20 Urinary Catheter Time of Insertion: 11:15 Date Urinary Catheter Removed: 10/25/20 Time Urinary Catheter Discontinued: 10:30 Data : 10/27/20 04:57 10/27/20 04:57 A&P Assessment and plan (1) History of incisional hernia repair: Status post incisional hernia repair with mesh, cholecystectomy, appendectomy with low urine output which is resolving patient is hemodynamically stable DC home today Status: Acute (2) Acute renal failure: Creatinine down to 1.4, resolving Appreciate nephrology and Dr. Turner input for management of acute renal failure Status: Resolved Attestations Medical Necessity Statement*: Incisional hernia repair going home today Coding Level of Care Code Acute Consumer Studies Professor for Jimmieg Fwd Diagnoses History of incisional hernia repair Z98.890; Z87.19 Acute renal failure N17.9
--- NOTE | 2020-10-31 11:40 | PM.DCS ---
Discharge Providers Date of Admission: 10/21/20 10:32 Date of Discharge: October 31, 2020 Attending Provider at Admission: Toan Mosley MD Attending Provider at Discharge: Toan Mosley MD Primary Care Provider: Mabel Cid MD Diagnoses at Discharge Discharge Diagnosis (1) History of incisional hernia repair: Status: Acute Permanent problem details: Bilateral anterior component separation, cholecystectomy, appendectomy, excision of renal cyst (2) Acute renal failure: Status: Resolved Reason for Visit Reason for Visit: cholecystectomy and hernia repair request dr quiles Hospital Course Hospital Course Patient underwent open incisional hernia repair with mesh, excision of renal cyst, cholecystectomy, appendectomy, bilateral component separation. On postop day 1 patient developed acute renal failure thought to be secondary to combination of hypoperfusion, dehydration, YULIA induced kidney injury. Patient was aggressively resuscitated with IV fluids and nephrotoxic medications were discontinued. She was noted to have a UTI and was started on IV Rocephin. By day 3 patient had return of bowel function and her diet was slowly advanced to a GI soft diet. Her creatinine which was 0.7 on initial presentation had gone up to 2.1 and had subsequently decreased to 1.2 at time of discharge. She also had acute blood loss anemia requiring 1 unit PRBC and she was started on ferrous sulfate therapy. Patient's YULIA inhibitor was discontinued on discharge and she was restarted on her labetalol 200 mg p.o. twice daily for management of hypertension. She was discharged home with bilateral JAZMYN drains in place. Physical Exam Urinary Catheter Management^: Cagle: Cath Placed During This Visit: yes, but has since been removed by the nurse Reason for Continuing Indwelling Catheter: Decision to DC Catheter Urinary Catheter Date of Insertion: 10/21/20 Urinary Catheter Time of Insertion: 11:15 Date Urinary Catheter Removed: 10/25/20 Time Urinary Catheter Discontinued: 10:30 Discharge Data Data Completed and Pending: Completed Studies During Hospitalization Category Date Time Status CXRP [XR chest 1V portable [id number]] R outine Exams 10/23/20 17:32 Completed XR chest 1V vianney ble [id number] Routine Exams 10/21/20 18:48 Completed Cytology [PTH] Ro utine Pth 10/21/20 12:15 Completed Pathology: Surgic al [PTH] Routine Pth 10/21/20 16:02 Completed US renal BI* [id number] 0 Routine Ultrasound 10/23/20 18:46 Completed Vitals: Last Vital Signs Temp 97.7 F 10/27/20 14:23 Pulse 89 10/27/20 14:23 Resp 17 10/27/20 14:23 BP 161/83 10/27/20 14:23 Pulse Ox 96 10/27/20 14:23 Discharge Plan Discharge Patient Disposition: Home Condition: Stable Prescriptions: New Zofran 4 mg tablet 4 mg PO Q6H PRN (Reason: nausea and vomiting) Qty: 20 RF: 0 Senna with Docusate Sodium 8.6-50 mg tablet 1 tab-cap PO BID Qty: 60 RF: 0 Percocet 5-325 mg tablet 1 tab PO Q6H PRN (Reason: pain) Qty: 20 RF: 0 lactulose 10 gram/15 mL solution 15 ml PO BEDTIME Qty: 237 RF: 2 ferrous sulfate 325 mg (65 mg iron) Tablet,Delayed Release (Dr/Ec) 325 mg PO BIDWM Qty: 180 RF: 0 Continued vitamin B complex [B Complex-Vitamin B12] Tablet 1 tab PO DAILY RF: 0 anastrozole 1 mg tablet 1 mg PO DAILY RF: 0 labetalol 200 mg tablet 200 mg PO BID RF: 0 felodipine 5 mg tablet extended release 24 hr 10 mg PO DAILY RF: 0 calcium carbonate [Calcium 600] 600 mg calcium (1,500 mg) tablet 1,200 mg PO DAILY RF: 0 multivitamin Tablet 1 tab PO DAILY RF: 0 magnesium 250 mg tablet 250 mg PO DAILY RF: 0 Held losartan 100 mg tablet 100 mg PO DAILY RF: 0 Hold Instructions: Resume on 11/01/20. No Action pantoprazole 40 mg tablet,delayed release (DR/EC) See Rx Instructions .ROUTE .COMPLEX Qty: 60 RF: 3 Discharge Orders: Discharge Order (Routine); Ordered 10/27/20 Ordered By: Toan Mosley Other Ambulatory Orders: DME: Oxygen (Order) Location: None Selected Ordered By: Padilla Montoya DME: Walker (Order) Location: None Selected Ordered By: Padilla Montoya Referrals: [facility] ([facility]) [Outside] Mabel Cid MD [Primary Care Provider] - 7-10 days (regarding restarting losartan/ BP management Please call [facility] and schedule an appointment with Dr. Cid to be seen within the next 7-10 days.) Min Christy MD [Physician] - 7-10 days (on home o2, work up for zach per Dr [facility] will call you Wednesday to make an appt to see Dr. Christy.) Toan Mosley MD [Physician] - 11/01/20 (Please call Dr. Mosley's office tomorrow to schedule a time to be seen on 11/01/20 ) Discharge Diet: GI Soft Patient Instructions: Iron Supplements (By mouth), Oxycodone/Acetaminophen (By mouth), Laxative, Stimulant (By mouth), Lactulose (By mouth), Ondansetron (By mouth), Emerson-Scott Drain Care (GEN), Open Appendectomy (DC), Open Cholecystectomy (DC), Ventral Hernia (GEN), Using Oxygen at Home Activity Restrictions/Additional Instructions: 1. Up and walking as tolerated. 2. Ok to shower 3. Remove Dermabond dressing in 7-10 days. 4. Do not lift more than 10 pounds. 5. strip drain 3 times a day and contact office once drain output is less than 30cc in 24 hours. 6. Advised to return to ER or contact my office if there are any signs of infection like, increasing pain, fevers, chills, redness or drainage of pus. 7. Abdominal binder while ambulating 8. Drink plenty of liquids 9. Decrease lactulose if having multiple loose BM a day 10. Use Tylenol for pain control and decrease use of Percocet if possible. Discharge Attestations Time Spent in Discharge Care*: less than 30 min Quality Metrics Clinical Quality Measures During this hospital stay, did patient experience: None Coding Level of Care Code Acute Joinery Patternmaker for Chg Fwd Diagnoses History of incisional hernia repair Z98.890; Z87.19 Acute renal failure N17.9
== END 2020-10-27 14:23 | disposition home or self-care (01) | DRG 336 ==
LOC: MEDSURG 10:32
PROVIDERS: Internal Medicine; Internal Medicine Nephrology; Urology; Admitting Provider Surgery; PCP Family Medicine; Visit Provider Surgery
PROC: 0FT40ZZ Resection of Gallbladder, Open Approach (ICD-10-PCS; CPT 47600; principal; 2020-10-21 10:55)
PROC: 0DN80ZZ Release Small Intestine, Open Approach (ICD-10-PCS; 2020-10-21 10:55)
PROC: 0TB00ZX Excision of Right Kidney, Open Approach, Diagnostic (ICD-10-PCS; CPT 50390; 2020-10-21 10:55)
PROC: 0DN80ZZ Release Small Intestine, Open Approach (ICD-10-PCS; CPT 44950; 2020-10-21 10:55)
DX: K43.2 Incisional hernia without obstruction or gangrene (principal); N17.9 Acute kidney failure, unspecified; N39.0 Urinary tract infection, site not specified; D62 Acute posthemorrhagic anemia; E87.2 Acidosis; E66.2 Morbid (severe) obesity with alveolar hypoventilation; N28.1 Cyst of kidney, acquired; K82.8 Other specified diseases of gallbladder; Z68.32 Body mass index [BMI] 32.0-32.9, adult; E86.0 Dehydration; I10 Essential (primary) hypertension; E78.5 Hyperlipidemia, unspecified; Z85.3 Personal history of malignant neoplasm of breast; Z85.828 Personal history of other malignant neoplasm of skin
CPT/HCPCS: 01996; 12345; 36415; 36416; 36430; 51798; 62324; 71045; 76770; 80048; 80053; 80069; 81001; 82550; 82570; 82962; 83036; 83735; 83880; 84300; 84443; 85007; 85025; 85027; 85999; 86850; 86900; 86920; 87086; 87493; 88302; 88304; 93005; 94640; 94664; 96372; 96374; 96375; 97110; 97116; 97162; 97530; C1781; C9290; J0360; J0696; J1100; J1200; J1644; J1885; J1940; J2250; J2405; J2550; J2704; J2710; J2795; J3010; J3370; J3490; J7030; J7040; J7050; J7611; J7799; P9016; Q3014

== ENCOUNTER 2021-01-20 07:50 | Outpatient (CLI) | payer MEDICARE, SELFPAY ==
[2021-01-20 08:50] LABS: Basophils # 0.1 10^3/uL (0.0-0.1); Basophils % 0.8 %; Eosinophils # 0.4 10^3/uL (0.0-0.8); Eosinophils % 5.5 %; Hematocrit 37.6 % (37.0-47.0); Hemoglobin 11.5 g/dL (11.5-15.3); Lymphocytes # 1.7 10^3/uL (0.8-4.8); Lymphocytes % 22.4 %; Mean Corpuscular HGB Conc 30.6 g/dL (30.0-36.0); Mean Corpuscular Hemoglobin 27.5 pg (28.0-34.0); Mean Platelet Volume 11.8 fL (7.4-10.4); Monocytes # 0.5 10^3/uL (0.2-0.9); Monocytes % 7.1 %; Neutrophils # 4.87 10^3/uL (1.8-7.7); Neutrophils % 64.1 %; Nucleated Red Blood Cells % 0 %; Platelet Count 222 10^3/cmm (130-400); Red Blood Count 4.18 10^6/uL (4.1-5.3); Red Cell Distribution Width 14.6 % (12.1-15.1); White Blood Count 7.6 10^3/uL (4.0-10.0)
[2021-01-20 09:06] LABS: Alanine Aminotransferase 20 U/L (0-33); Albumin Level 4.5 g/dL (3.5-5.2); Alkaline Phosphatase 73 IU/L (35-105); Anion Gap 13.1 (5-19); Aspartate Amino Transferase 19 U/L (0-32); Blood Urea Nitrogen 21 mg/dL (8-23); Calcium 9.3 mg/dL (8.5-10.5); Carbon Dioxide 29 mmol/L (22-29); Chloride 101 mmol/L (98-107); Globulin 2.8 g/dL (1.3-4.6); Glucose 102 mg/dL (65-115); Osmolality Calculated 291 mOsm/kg (285-295); Potassium 4.1 mmol/L (3.5-5.1); Sodium 139 mmol/L (136-145); Total Bilirubin 0.2 mg/dL (0.15-1.2); Total Protein 7.3 g/dL (6.6-8.7)
[2021-01-20 10:45] LABS: Iron 47 ug/dL (37-145); Percent Saturation 15.4 % (20-50); Total Iron Binding Capacity 304 mcg/dl; Unsaturated Iron Binding 257 ug/dL (112-347)
--- NOTE | 2021-01-23 18:02 | ONC FU_ITS ---
Dr. Finley follow up note Patient: Stephanie Sin Unit #: [id number]: [id number] Dicatated By: Holland Finley M.D.Date of Visit:Jan 20, 2021 Onc Med Follow-up/Prog Note History of Present Illness: Mrs. 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 Patient tolerated procedure well. As per patient her routine follow-up mammogram showed an abnormal area for which on 03/16/2018 she underwent biopsy which was suspicious for intraductal papillary carcinoma No history of postmenopausal hormone or contraceptive use, she had 6 pregnancies 5 live births Status post postlumpectomy radiation therapy finished on 07/04/2018 Started on Arimidex/vitamin D/calcium for 5 years on 05/09/2018 Follow-up mammogram done on 06/20/2019 showed BI-RADS 2-benign Follow-up mammogram done on April 22, 2020 showed BI-RADS 2, benign Came for follow-up, denies any specific complaints except in October 2020, she was admitted to hospital at that time she underwent cholecystectomy, appendicectomy and there was a spot on her right kidney as per patient urologist did testing and she was told it was normal, also had abdominal hernia repair done. Other than that denies any specific complaints, no fever chills, no nausea or vomiting, no diarrhea or constipation, no melena or hematochezia, tolerating oral iron well except off-and-on constipation and indigestion. Also tolerating Arimidex . Medications: Acidophilus Capsule Oral, Anastrozole 1 (1 mg) Tablet Oral daily, B-12 3 (1000 mcg) Tablet Oral daily, B-50 1 Tablet Oral daily, C 500 Tablet Oral, Calcium & Magnesium Carbonates Tablet Oral, Felodipine ER 1 Tablet (of 5 mg) Tablet SR 24 HR Oral b.i.d., High Energy Multi-Vitamin Capsule, Labetalol HCl 1 Tablet (of 200 mg) Oral b.i.d. Allergies: antidepressants, latex, Librium, and Penicillins. Review of Systems: Review of Systems is not available for this patient. Vital Signs: Performed on Jan 20, 2021 08:51 Height - 60.00 in Weight - 156.4 lbs (LOW) BSA - 1.68 sq.m BMI - 30.54 (HIGH) Temperature - 98.4 F Pulse - 70 /min Respiration - 18 /min BP - 161/81 mm(hg) (HIGH) O2 Sat - 96 % Pain - 0 Fatigue - 0 Performance Status: 1 - No physically strenuous activity, but ambulatory and able to carry out light or sedentary work (e.g. office work, light house work). (ECOG) Physical Examination: Respiratory - Lungs are clear to auscultation, Cardiovascular - Regular rate and rhythm of heart, Gastrointestinal - Soft, bowel sounds present, Extremities - No visible edema or rash. Lab/Imaging: Most recent lab results are not available for this patient. 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 Final pathology shows DCIS 0.5 x 0.4 cm, cribriform/papillary histologic growth pattern margins clear but inferior margin within 1 mm ER 98%, RI 97% Tis (DCIS),N0 stage 0 Started on Arimidex 1 mg daily for 5 years, on 05/09/2018 s/p postlumpectomy radiation therapy finished on 07/04/18 Iron deficiency anemia on oral iron Plan: Discussed with patient regarding her labs white blood count 7.6 hemoglobin 11.5 hematocrit 37.6 platelets 222,000 CMP within normal limits Clinically, patient is doing well with no new signs symptom, patient said she is on oral iron, for iron deficiency anemia, tolerating well but with off-and-on constipation indigestion, her lab work-up done today shows hemoglobin in normal range, will repeat her iron studies and if it shows normal range then will discontinue oral iron and then she return to clinic in 6 months with CBC CMP. In the meantime she will continue with Arimidex for her DCIS. Signed By: Holland Finley M.D. <<Signature on File>>
== END 2021-01-20 07:51 | disposition home or self-care (01) ==
PROVIDERS: PCP Family Medicine; Visit Provider Internal Medicine Hematology & Oncology
DX: C50.112 Malignant neoplasm of central portion of left female breast (principal); Z17.0 Estrogen receptor positive status [ER+]; Z90.12 Acquired absence of left breast and nipple; D50.9 Iron deficiency anemia, unspecified; Z79.899 Other long term (current) drug therapy; Z79.811 Long term (current) use of aromatase inhibitors
CPT/HCPCS: 36415; 80053; 83540; 83550; 85025; 99214

== ENCOUNTER 2021-02-16 13:17 | Emergency (ER) | payer MEDICARE, SELFPAY ==
[2021-02-16 13:31] VITALS: BP 172/91; PULSE 80; RESP 16; TEMP 36.9; O2SAT 92; BMI 30.4
[2021-02-16 13:36] VITALS: BP 151/79; PULSE 66; RESP 18; O2SAT 95
--- NOTE | 2021-02-16 13:39 | XRR_ITS ---
PROCEDURE INFORMATION: Exam: XR Right Ribs with PA Chest Exam date and time: 02/16/2021 1:50 PM Age: 81 years old Clinical indication: Injury or trauma; Fall; Rib area; Blunt trauma (contusions or hematomas); Additional info: Fall, pain TECHNIQUE: Imaging protocol: XR Right ribs with PA chest. Views: 3 views COMPARISON: CR XR chest 1V portable [id number] 10/23/2020 5:42 PM FINDINGS: Lungs: Bibasilar atelectasis. No consolidation. Pleural spaces: Unremarkable. No pleural effusion. No pneumothorax. Heart/Mediastinum: Stable cardiomediastinal silhouette. Bones/joints: No displaced rib fracture identified. XR/XR ribs RT mn 3V w CXR1V [id number] IMPRESSION: No acute findings.
--- NOTE | 2021-02-16 14:29 | ED_ITS ---
HPI - Fall General: Chief Complaint: Fall Stated Complaint: FELL LAST PM,RIB/BACK/L LEG/HIP PAIN Time Seen by Provider: 02/16/21 13:39 History of Present Illness: HPI Narrative: Patient states she has been putting food in refrigerator and fell sideways landing on her mop bucket and this occurred yesterday evening. Now complains about right rib pain and concerns about whether her hernia repair has been disrupted. complaint: other (Rib pain) Onset (ago): day(s) Fall from: standing Fall witnessed: no Place fall occurred: home Loss of consciousness: None Prolonged down time: no Symptoms prior to fall: none Context: tripped/slipped Location of injury: other (Ribs right side) Severity: moderate Severity scale (1-10): 5 Quality: aching Associated symptoms-after fall: Reports no associated symptoms; Denies abdominal pain, chest pain or headache(s) Review of Systems Narrative: Ribs are sore right side below the breast area Const: Denies: fever(s), chills or body aches Eyes: Denies: change in vision or blurry vision ENMT: Denies: throat pain or nasal congestion Card: Denies: chest pain or dyspnea on exertion Resp: Denies: dyspnea, productive cough or non-productive cough GI: Reports: other (Daughter says that her knee appears to be protruding right side it is not p); Denies: abdominal pain, nausea or vomiting Musc: Denies: extremity pain Skin/Breast: Denies: rash Neuro: Denies: headache(s) Psych: Denies: anxiety or depression Kolby/Lymph: Denies: easy bruising PFSH ED PFSH: Medical History Anemia Breast cancer, left H/O nonmelanoma skin cancer Hyperlipidemia Hypertension Renal cyst Surgical History H/O basal cell carcinoma excision H/O partial mastectomy left History of colonoscopy with polypectomy (07/23/20) History of incisional hernia repair (10/21/20) Bilateral anterior component separation, cholecystectomy, appendectomy, excision of renal cyst History of tonsillectomy Family History Grandmother Cancer breast Mother Cancer ovarian Father Hypertension Stroke Denies family history of Anesthesia complication Bleeding disorder Social History Smoking and tobacco status: never smoked Second hand smoke exposure: Yes Alcohol intake: never Caregiver/support person: Yes Lives independently: Yes Household members: none Marital status: Single Current occupational status: retired Pets and animals: No History of recent travel: No Current gender identity: Female Physical Exam Const: COMMON NORMALS: no acute distress, average body habitus and patient oriented x3 HENMT: COMMON NORMALS: normocephalic HEAD & SCALP: normal to inspection and normocephalic FACE & SINUS: normal facial exam Eye: COMMON NORMALS: conjunctivae normal GENERAL EYE: appearance normal, both eyes and all related structures CONJUNCTIVA: Yes conjunctivae normal Neck/C-Spine: COMMON NORMALS: no JVD Chest: CHEST: Yes localized rib tenderness with anteroposterior compression (Right side) Location: 7th rib and 8th rib Resp: COMMON NORMALS: normal respiratory effort and clear to auscultation bilaterally AUSCULTATION: clear to auscultation bilaterally Cardio: COMMON NORMALS: no JVD, regular rate and regular rhythm RATE: regular rate RHYTHM: regular rhythm GI: COMMON NORMALS: Normal to inspection, nondistended, normoactive bowel sounds present and no masses INSPECTION: Yes other (No evidence of protrusion of hernia through abdominal wall) Extremity: COMMON NORMALS: normal to inspection and full ROM Neuro: COMMON NORMALS: patient oriented x3 Course Vital Signs: Vital signs: Vital Signs Temperature 98.3 F 02/16/21 15:22 Pulse Rate 56 L 02/16/21 15:22 Respiratory Rate 18 02/16/21 15:22 Blood Pressure 150/76 02/16/21 15:22 Pulse Oximetry 96 02/16/21 15:22 Discharge Plan Discharge Patient Disposition: Home Clinical Impression: Pain in rib Condition: Stable Prescriptions: New tramadol 50 mg tablet 50 mg PO TID PRN (Reason: pain) Qty: 7 RF: 0 No Action vitamin B complex [B Complex-Vitamin B12] Tablet 1 tab PO DAILY RF: 0 anastrozole 1 mg tablet 1 mg PO DAILY RF: 0 labetalol 200 mg tablet 200 mg PO BID RF: 0 losartan 100 mg tablet 100 mg PO DAILY RF: 0 Hold Instructions: Resume on 11/01/20. felodipine 5 mg tablet extended release 24 hr 10 mg PO DAILY RF: 0 calcium carbonate [Calcium 600] 600 mg calcium (1,500 mg) tablet 1,200 mg PO DAILY RF: 0 multivitamin Tablet 1 tab PO DAILY RF: 0 magnesium 250 mg tablet 250 mg PO DAILY RF: 0 sulfamethoxazole-trimethoprim [Bactrim DS] 800-160 mg tablet 1 tab PO BID 7 Days Qty: 14 RF: 0 pantoprazole 40 mg tablet,delayed release (DR/EC) See Rx Instructions .ROUTE .COMPLEX Qty: 180 RF: 1 Zofran 4 mg tablet 4 mg PO Q6H PRN (Reason: nausea and vomiting) Qty: 20 RF: 0 Percocet 5-325 mg tablet 1 tab PO Q6H PRN (Reason: pain) Qty: 20 RF: 0 lactulose 10 gram/15 mL solution 15 ml PO BEDTIME Qty: 237 RF: 2 ferrous sulfate 325 mg (65 mg iron) Tablet,Delayed Release (Dr/Ec) 325 mg PO BIDWM Qty: 180 RF: 0 Discharge Orders: Discharge ED (Routine); Ordered 02/16/21 Ordered By: Ankit Holley Referrals: Mabel Cid MD [Primary Care Provider] - Discharge Diet: Usual diet Discharge Activity: Increase activity as tolerated Patient Instructions: Contusion in Adults (ED), Opioid Safety Activity Restrictions/Additional Instructions: Follow-up with medical provider as directed. Take medications as prescribed. Return to the ER or your medical provider if condition worsens. Please read and understand discharge instructions. If any questions ask please. Coding Level of Care Code ED Electrician Underground for Marianne Fwsurekha Exam Comprehensive
[2021-02-16] MEDS: TRAMadol 50 mg Tablet PO (14:44)
[2021-02-16] MEDS: ketorolac 60 mg/2 mL INJ IM (14:45)
[2021-02-16 15:22] VITALS: BP 150/76; PULSE 56; RESP 18; TEMP 36.8; O2SAT 96
== END 2021-02-16 15:24 | disposition home or self-care (01) ==
PROVIDERS: Emergency Provider Nurse Practitioner Family; PCP Family Medicine
DX: R07.81 Pleurodynia (principal); Z85.3 Personal history of malignant neoplasm of breast; E78.5 Hyperlipidemia, unspecified; I10 Essential (primary) hypertension; Z77.22 Contact with and (suspected) exposure to environmental tobacco smoke (acute) (chronic); Z85.828 Personal history of other malignant neoplasm of skin
CPT/HCPCS: 71101; 96372; 99283; J1885

== ENCOUNTER 2021-04-30 15:21 | Inpatient (IN) | payer MEDICARE, SELFPAY ==
[2021-04-30 16:28] VITALS: BP 127/84; PULSE 87; RESP 17; TEMP 37.8; O2SAT 92; BMI 30.4
--- NOTE | 2021-04-30 20:45 | XRR_ITS ---
PROCEDURE INFORMATION: Exam: XR Left Knee Exam date and time: 04/30/2021 8:45 PM Age: 81 years old Clinical indication: Injury or trauma; Blunt trauma; Knee; Left; Injury date: 04/29/2021; Patient HX: Fall yesterday, dysuria, fatigue, fever TECHNIQUE: Imaging protocol: XR Left knee. Views: 3 views. COMPARISON: No relevant prior studies available. FINDINGS: Bones/joints: Moderate severity osteoarthritis. Chondrocalcinosis of menisci. Negative for fracture. No joint space malalignment. No significant joint effusion. Bones are demineralized. Soft tissues: Normal. XR/XR knee LT 3V* [id number] IMPRESSION: Negative for acute abnormality.
--- NOTE | 2021-04-30 20:45 | XRR_ITS ---
PROCEDURE INFORMATION: Exam: XR Right Knee Exam date and time: 04/30/2021 8:45 PM Age: 81 years old Clinical indication: Injury or trauma; Blunt trauma; Knee; Right; Injury date: 04/29/2021; Patient HX: Fall yesterday, fever, fatigue, dysuria TECHNIQUE: Imaging protocol: XR Right knee. Views: 3 views. COMPARISON: No relevant prior studies available. FINDINGS: Bones/joints: No fractures. Moderate severity osteoarthritis. Negative for joint effusion. Unremarkable joint alignment. Chondrocalcinosis of the menisci. Soft tissues: Normal. XR/XR knee RT 3V* [id number] IMPRESSION: Negative for acute fracture or joint space malalignment.
--- NOTE | 2021-04-30 20:45 | XRR_ITS ---
PROCEDURE INFORMATION: Exam: XR Chest Exam date and time: 04/30/2021 8:45 PM Age: 81 years old Clinical indication: Injury or trauma; Blunt trauma (contusions or hematomas); Injury date: 04/29/2021; Patient HX: Fall yesterday, dysuria, fatigue, fever TECHNIQUE: Imaging protocol: XR of the chest. Views: 1 view. COMPARISON: CR XR ribs RT mn 3V w CXR1V [id number] 02/16/2021 2:08 PM FINDINGS: Lungs: Since prior imaging development of a large focal lateral right upper lung opacification peripherally. The medial margin is irregular and poorly defined. Background emphysema. Coarsened reticular interstitial lung change. Pleural spaces: Unremarkable. No pleural effusion. No pneumothorax. Heart/Mediastinum: Unremarkable. No cardiomegaly. Bones/joints: Unremarkable. XR/XR chest 1V portable [id number] IMPRESSION: Large dense opacity with a poorly defined medial border in the lateral right upper lobe. New finding since 02/16/2021. Focal pneumonia is favored. Rapidly enlarging mass or other pathology such as pulmonary hemorrhage cannot be excluded.
--- NOTE | 2021-04-30 20:52 | ED_ITS ---
HPI - Female Genitourinary General: Chief complaint: Urogenital-Female Stated complaint: FEVER FALL YESTERDAY Time Seen by Provider: 04/30/21 20:40 Source: patient Mode of arrival: ambulatory Limitations: no limitations History of Present Illness: HPI Narrative: 81-year-old female states that over the last 2 days she has been having fevers body aches chills along with dysuria. States she gets frequent UTIs and this feels similar. She had some generalized weakness as well. States she fell yesterday at her house and has bilateral knee pain. She denies any cough. Denies any sick contacts. She denies any vomiting or diarrhea. Associated symptoms: Deny abdominal pain, headache(s) or nausea Review of Systems Const: Reports: fever(s), chills and body aches Eyes: Denies: blurry vision or eye discomfort ENMT: Denies: throat pain or dental pain Card: Denies: chest pain Resp: Denies: dyspnea GI: Denies: abdominal pain, nausea, vomiting or diarrhea : Reports: dysuria and urinary urgency Musc: Denies: neck pain or back pain Skin/Breast: Denies: rash Neuro: Denies: headache(s) Psych: Denies: depression [place]/Lymph: Denies: easy bruising All/Imm: Denies: urticaria PFSH ED PFSH: Medical History Anemia Breast cancer, left H/O nonmelanoma skin cancer Hyperlipidemia Hypertension Renal cyst Surgical History H/O basal cell carcinoma excision H/O partial mastectomy left History of colonoscopy with polypectomy (07/23/20) History of incisional hernia repair (10/21/20) Bilateral anterior component separation, cholecystectomy, appendectomy, excision of renal cyst History of tonsillectomy Family History Grandmother Cancer breast Mother Cancer ovarian Father Hypertension Stroke Denies family history of Anesthesia complication Bleeding disorder Social History Smoking and tobacco status: never smoked Second hand smoke exposure: Yes Alcohol intake: never Caregiver/support person: Yes Lives independently: Yes Household members: none Marital status: Single Current occupational status: retired Pets and animals: No History of recent travel: No Current gender identity: Female Physical Exam Const: COMMON NORMALS: no acute distress, patient oriented x3 and healthy appearing HENMT: COMMON NORMALS: normocephalic and atraumatic HEAD & SCALP: normoce phalic and atraumatic Eye: COMMON NORMALS: Equal, round and reactive pupils present and EOMs intact bilaterally PUPIL: Yes Equal, round and reactive pupils present Neck/C-Spine: COMMON NORMALS: full ROM and supple Chest: COMMONS NORMALS: normal inspection of the chest and normal palpation of entire chest wall Resp: COMMON NORMALS: normal respiratory effort, No retractions, No use of accessory muscles and clear to auscultation bilaterally AUSCULTATION: clear to auscultation bilaterally Cardio: COMMON NORMALS: regular rate, regular rhythm and No murmurs present (Cardio) RATE: regular rate RHYTHM: regular rhythm GI: COMMON NORMALS: Normal to inspection, nondistended, normoactive bowel sounds present, Soft to palpation, non-tender and no masses PALPATION: Yes Soft to palpation Extremity: COMMON NORMALS: normal to inspection and full ROM Neuro: COMMON NORMALS: patient oriented x3, moves all extremities and no focal motor deficits Psych: COMMON NORMALS: mental status grossly normal, Normal thought process present and cooperative THOUGHT PROCESS: Normal thought process present Skin: COMMON NORMALS: no rashes or lesions noted and no wounds GENERAL SKIN EXAM: no rashes or lesions noted Course Vital Signs: Vital signs: Vital Signs Temperature 103.1 F H 04/30/21 22:03 Pulse Rate 95 04/30/21 22:03 Respiratory Rate 19 H 04/30/21 22:03 Blood Pressure 167/74 04/30/21 22:03 Pulse Oximetry 92 04/30/21 22:03 MDM - Female MDM Narrative: Medical decision making narrative: Patient presents here with fever has a large right-sided pneumonia. She is having weakness as well. I spoke to the hospitalist will admit at this time 5 antibiotics. Patient's been stable here no signs of septic shock. Lab Data: Labs: Lab Results 04/30/21 04/30/21 04/30/21 Range/Units 20:59 20:59 20:59 WBC 17.2 H (4.0-10.0) 10^3/ uL RBC 4.29 (4.1-5.3) 10^6/u L Hgb 12.2 (11.5-15.3) g/dL Hct 38.2 (37.0-47.0) % MCV 89.0 (81-99) fL MCH 28.4 (28.0-34.0) pg MCHC 31.9 (30.0-36.0) g/dL RDW 14.6 (12.1-15.1) % Plt Count 188 (130-400) 10^3/c mm MPV 12.2 H (7.4-10.4) fL Lymph % (Auto) Not Reportable [place] % (Auto) Not Reportable Lymph # (Auto) Not Reportable [place] # (Auto) Not Reportable Total Counted 100 (0-100) Atypical Lymphs % 0.0 (0-5) % Absolute Neutrophi ls 15.3 H (1.4-6.5) 10^3/c mm Segmented Neutroph ils 71 % Abs Segm Neuts (Ma n) 12.2 H (1.6-7.1) 10/cmm Band Neutrophils 18.0 % Abs Band Neuts (Ma n) 3.1 H (0.0-1.2) 10^3/c mm Absolute Lymphocyt es 0.9 L (1.2-3.4) 10^3/c mm Lymphocytes (Manua l) 5 % Monocytes (Manual) 5.0 % Absolute Monocytes 0.9 H (0.1-0.6) 10^3/c mm Eosinophils (Manua l) 0 % Absolute Eosinophi ls 0.0 (0.0-0.7) 10^3/c mm Basophils (Manual) 0.0 % Absolute Basophils 0.0 (0.0-0.2) 10^3/c mm Metamyelocytes 1.0 % Platelet Estimate Normal (Normal) Sodium 126 L (136-145) mmol/L Potassium 3.7 (3.5-5.1) mmol/L Chloride 89 L (98-107) mmol/L Carbon Dioxide 22 (22-29) mmol/L Anion Gap 18.7 (5-19) BUN 22 (8-23) mg/dL Creatinine 0.8 (0.5-0.9) mg/dL GFR Calculation Not Reportable Glucose 109 (65-115) mg/dL Calculated Osmolal ity 266 L (285-295) mOsm/k g Lactate 0.8 (0.5-2.2) mmol/L Calcium 9.1 (8.5-10.5) mg/dL Total Bilirubin 0.4 (0.15-1.2) mg/dL AST 66 H (0-32) U/L ALT 43 H (0-33) U/L Alkaline Phosphata se 73 (35-105) IU/L Total Protein 7.5 (6.6-8.7) g/dL Albumin 3.8 (3.5-5.2) g/dL Globulin 3.7 (1.3-4.6) g/dL Urine Color (Yellow) Urine Appearance (CLEAR) Urine pH (5-7) Ur Specific Gravit y (1.005-1.030) Urine Protein (Negative) Urine Glucose (UA) (Normal) Urine Ketones (Negative) Urine Blood (Negative) Urine Nitrate (Negative) Urine Bilirubin (Negative) Urine Urobilinogen (Negative) mg/dL Ur Leukocyte Daniela ase (Negative) Urine RBC (0-2) /hpf Urine WBC (0-5) /hpf Ur Squamous Epith Cells (0-5) /hpf Amorphous Sediment Urine Bacteria (NONE) /hpf SARS-CoV-2 Ag (Rap id) (Negative) 04/30/21 04/30/21 Range/Units 22:00 23:34 WBC (4.0-10.0) 10^3/ uL RBC (4.1-5.3) 10^6/u L Hgb (11.5-15.3) g/dL Hct (37.0-47.0) % MCV (81-99) fL MCH (28.0-34.0) pg MCHC (30.0-36.0) g/dL RDW (12.1-15.1) % Plt Count (130-400) 10^3/c mm MPV (7.4-10.4) fL Lymph % (Auto) [place] % (Auto) Lymph # (Auto) [place] # (Auto) Total Counted (0-100) Atypical Lymphs % (0-5) % Absolute Neutrophi ls (1.4-6.5) 10^3/c mm Segmented Neutroph ils % Abs Segm Neuts (Ma n) (1.6-7.1) 10/cmm Band Neutrophils % Abs Band Neuts (Ma n) (0.0-1.2) 10^3/c mm Absolute Lymphocyt es (1.2-3.4) 10^3/c mm Lymphocytes (Manua l) % Monocytes (Manual) % Absolute Monocytes (0.1-0.6) 10^3/c mm Eosinophils (Manua l) % Absolute Eosinophi ls (0.0-0.7) 10^3/c mm Basophils (Manual) % Absolute Basophils (0.0-0.2) 10^3/c mm Metamyelocytes % Platelet Estimate (Normal) Sodium (136-145) mmol/L Potassium (3.5-5.1) mmol/L Chloride (98-107) mmol/L Carbon Dioxide (22-29) mmol/L Anion Gap (5-19) BUN (8-23) mg/dL Creatinine (0.5-0.9) mg/dL GFR Calculation Glucose (65-115) mg/dL Calculated Osmolal ity (285-295) mOsm/k g Lactate (0.5-2.2) mmol/L Calcium (8.5-10.5) mg/dL Total Bilirubin (0.15-1.2) mg/dL AST (0-32) U/L ALT (0-33) U/L Alkaline Phosphata se (35-105) IU/L Total Protein (6.6-8.7) g/dL Albumin (3.5-5.2) g/dL Globulin (1.3-4.6) g/dL Urine Color Yellow (Yellow) Urine Appearance Sl hazy (CLEAR) Urine pH 5 (5-7) Ur Specific Gravit y 1.010 (1.005-1.030) Urine Protein 1+ H (Negative) Urine Glucose (UA) Norm (Normal) Urine Ketones 1+ H (Negative) Urine Blood 3+ H (Negative) Urine Nitrate Negative (Negative) Urine Bilirubin Neg (Negative) Urine Urobilinogen Norm (Negative) mg/dL Ur Leukocyte Daniela ase Trace H (Negative) Urine RBC 0-4 H (0-2) /hpf Urine WBC >100 H (0-5) /hpf Ur Squamous Epith Cells 0-4 H (0-5) /hpf Amorphous Sediment Not Reportable Urine Bacteria Trace (NONE) /hpf SARS-CoV-2 Ag (Rap id) Negative (Negative) Imaging Data: CXR: Attestation: I personally reviewed and interpreted this imaging study as follows: Radiologist's impression: [address] [place] [address] XRay Report Signed Patient: Stephanie Sin Unit #: [id number] : 1940 Age/Sex: 81 / F ADM Date: 04/30/21 Loc: ER Room/Bed: Attending Dr: Ordering Provider/Ordering MD: Leroy Gallo MD Date of Service: 04/30/21 Procedure(s): XR chest 1V portable [id number] Accession Number(s): [id number] Report Number: [id number] PROCEDURE INFORMATION: Exam: XR Chest Exam date and time: 04/30/2021 8:45 PM Age: 81 years old Clinical indication: Injury or trauma; Blunt trauma (contusions or hematomas); Injury date: 04/29/2021; Patient HX: Fall yesterday, dysuria, fatigue, fever TECHNIQUE: Imaging protocol: XR of the chest. Views: 1 view. COMPARISON: CR XR ribs RT mn 3V w CXR1V [id number] 02/16/2021 2:08 PM FINDINGS: Lungs: Since prior imaging development of a large focal lateral right upper lung opacification peripherally. The medial margin is irregular and poorly defined. Background emphysema. Coarsened reticular interstitial lung change. Pleural spaces: Unremarkable. No pleural effusion. No pneumothorax. Heart/Mediastinum: Unremarkable. No cardiomegaly. Bones/joints: Unremarkable. XR/XR chest 1V portable [id number] IMPRESSION: Large dense opacity with a poorly defined medial border in the lateral right upper lobe. New finding since 02/16/2021. Focal pneumonia is favored. Rapidly enlarging mass or other pathology such as pulmonary hemorrhage cannot be excluded. Dictated By: Jori Hoffman Signed By: Jori Hoffman Signed Date/Time: 04/30/212154 DD/ 53 Discharge Plan Discharge Patient Disposition: Admitted As Inpatient Clinical Impression: Weakness Pneumonia Qualifiers: Pneumonia type: due to unspecified organism Laterality: right Lung location: middle lobe of lung Qualified Code(s): J18.9 - Pneumonia, unspecified organism Condition: Stable Coding Level of Care Code ED Global Account Manager for [facility] Fwd Exam Comprehensive
[2021-04-30 20:57] VITALS: BP 183/87; PULSE 93; RESP 20; O2SAT 90
[2021-04-30] MEDS: sodium chloride 0.9% 1,000 ML 999 ML IV (21:03)
[2021-04-30 21:11] LABS: Hematocrit 38.2 % (37.0-47.0); Hemoglobin 12.2 g/dL (11.5-15.3); Mean Corpuscular HGB Conc 31.9 g/dL (30.0-36.0); Mean Corpuscular Hemoglobin 28.4 pg (28.0-34.0); Mean Platelet Volume 12.2 fL (7.4-10.4); Platelet Count 188 10^3/cmm (130-400); Red Blood Count 4.29 10^6/uL (4.1-5.3); Red Cell Distribution Width 14.6 % (12.1-15.1); White Blood Count 17.2 10^3/uL (4.0-10.0)
[2021-04-30 21:27] LABS: Alanine Aminotransferase 43 U/L (0-33); Albumin Level 3.8 g/dL (3.5-5.2); Alkaline Phosphatase 73 IU/L (35-105); Anion Gap 18.7 (5-19); Aspartate Amino Transferase 66 U/L (0-32); Blood Urea Nitrogen 22 mg/dL (8-23); Calcium 9.1 mg/dL (8.5-10.5); Carbon Dioxide 22 mmol/L (22-29); Chloride 89 mmol/L (98-107); Globulin 3.7 g/dL (1.3-4.6); Glucose 109 mg/dL (65-115); Lactate (Lactic Acid level) 0.8 mmol/L (0.5-2.2); Osmolality Calculated 266 mOsm/kg (285-295); Potassium 3.7 mmol/L (3.5-5.1); Sodium 126 mmol/L (136-145); Total Bilirubin 0.4 mg/dL (0.15-1.2); Total Protein 7.5 g/dL (6.6-8.7)
[2021-04-30 21:30] LABS: Slide Review Slide Review Perform
[2021-04-30 21:31] LABS: Absolute Neutrophil 15.3 10^3/cmm (1.4-6.5); Absolute Segmented Neutrophil 12.2 10/cmm (1.6-7.1); Band Neutrophils Absolute 3.1 10^3/cmm (0.0-1.2); Eosinophils 0 %; Lymphocytes 5 %; Lymphocytes Absolute 0.9 10^3/cmm (1.2-3.4); Monocytes Absolute 0.9 10^3/cmm (0.1-0.6); Platelet Estimate Normal (Normal); Segmented Neutrophils 71 %; Total Cells Counted 100 (0-100)
[2021-04-30] MEDS: acetaminophen 500 mg Tablet 1000 MG PO (21:52)
[2021-04-30] MEDS: cefTRIAXone 1,000 MG in sodium chloride 0.9% (plus) 100 ML 200 MG IV (21:54)
[2021-04-30 22:03] VITALS: BP 167/74; PULSE 95; RESP 19; TEMP 39.5; O2SAT 92
[2021-04-30 22:38] LABS: SARS Covid-2 Antigen Negative (Negative)
[2021-04-30] MEDS: azithromycin 500 MG in sodium chloride 0.9% 250 ML 250 MG IV (22:57)
--- NOTE | 2021-04-30 23:21 | P.HP_ITS ---
Providers/Chief Complaint Admitting Physician: Elle Buchanan MD Primary Care Provider: Mabel Cid MD Chief Complaint: FEVER FALL YESTERDAY History of Present Illness Stephanie Sin is a 81 year old female with past medical history as outlined below who presented to the hospital with chief complaints of fever with chills for the past 3 days, burning micturition with increased frequency, cough. She has been also having generalized weakness, yesterday evening sustained a fall in her home due to feeling weak. He denies any loss of consciousness at the time. Did not hit her head. Diagnostics in the ER notable for leukocytosis of 17 with predominant left shift, oxygen saturation 89% requiring supplemental 2 L/min O2, hyponatremia with sodium 126, greater than 100 WBC with positive leuk esterase, negative rapid antigen. Chest x-ray shows large dense opacity with poorly defined medial border in the lateral right upper lobe, new since February 2021 likely lobar consolidation. She is unvaccinated for COVID-19 Review of Systems General: Reports: 10 or more systems reviewed and unremarkable except in HPI and below Const: Reports: fever(s) and chills; Denies: body aches Eyes: Denies: change in vision, blurry vision or photophobia ENMT: Denies: throat pain, enlarged tonsils, odynophagia or nasal congestion Card: Denies: chest pain, palpitations, irregular heart rhythm, edema, swelling of feet/ankles, lightheadedness, pre-syncope, dyspnea on exertion or orthopnea Resp: Reports: dyspnea and productive cough; Denies: non-productive cough, wheezing, stridor, pain on inspiration, change in phlegm color, hemoptysis or chest congestion GI: Denies: abdominal pain, nausea, vomiting, hematemesis, coffee ground emesis, dysphagia, heartburn, diarrhea, constipation, GI cramping, change in st ool character, hematochezia or melena : Denies: flank pain, difficulty voiding, dysuria, urinary frequency, urinary urgency, urinary hesitancy or hematuria Musc: Denies: neck pain, back pain, extremity pain, joint swelling, joint warmth or deformity Neuro: Denies: headache(s), numbness in extremities, weakness in extremities, sensory changes, difficulty walking, frequent falls, dizziness, vertigo, behavioral changes, Slurred speech present or seizure-like activity Psych: Denies: anxiety, depression, suicidal ideation or homicidal ideation Endo: Denies: polyuria, polydipsia, tired all the time, cold intolerance or ho t flashes Kol[place]/Lymph: Denies: easy bruising or easy bleeding Medications/Allergies Home Medications Medication Instructions Recorded Confirmed Last Taken Type anastrozole 1 mg tablet 1 mg PO DAILY 04/29/20 04/30/21 04/29/21 History calcium carbonate 600 mg calcium 1,200 mg PO DAILY tab 04/29/20 04/30/21 04/29/21 History (1,500 mg) tablet felodipine 5 mg tablet,extended 10 mg PO DAILY tab 04/29/20 04/30/21 04/29/21 History release 24 hr labetalol 200 mg tablet 200 mg PO BID 04/29/20 04/30/21 04/29/21 History magnesium 250 mg tablet 250 mg PO DAILY 04/29/20 04/30/21 04/29/21 History multivitamin 1 tab PO DAILY 04/29/20 04/30/21 04/29/21 History vitamin B complex 1 tab PO DAILY 04/29/20 04/30/21 10/20/20 History ondansetron HCl [Zofran] 4 mg PO Q6H PRN #20 tab 10/27/20 04/30/21 Unknown Rx tramadol 50 mg PO TID PRN #7 tab 02/16/21 04/30/21 Unknown Rx nitrofurantoin monohyd/m-cryst 100 mg PO BID 04/30/21 04/30/21 04/29/21 History pantoprazole 40 mg PO BID 04/30/21 04/30/21 04/30/21 History Allergies Allergy/AdvReac Type Severity Reaction Status Date / Time chlordiazepoxide Allergy ALGY-Anaphy Verified 02/16/21 13:37 [From Librium] laxis Penicillins Allergy ALGY-Rash Verified 02/16/21 13:37 PFSH Acute PFSH: Medical History Anemia Breast cancer, left H/O nonmelanoma skin cancer Hyperlipidemia Hypertension Renal cyst Surgical History H/O basal cell carcinoma excision H/O partial mastectomy left History of colonoscopy with polypectomy (07/23/20) History of incisional hernia repair (10/21/20) Bilateral anterior component separation, cholecystectomy, appendectomy, excision of renal cyst History of tonsillectomy Family History Grandmother Cancer breast Mother Cancer ovarian Father Hypertension Stroke Denies family history of Anesthesia complication Bleeding disorder Social History Smoking and tobacco status: never smoked Second hand smoke exposure: Yes Alcohol intake: never Caregiver/support person: Yes Lives independently: Yes Household members: none Marital status: Single Current occupational status: retired Pets and animals: No History of recent travel: No Current gender identity: Female Vitals/I&O/Wt Last Vital Signs Temp 103.1 F H 04/30/21 22:03 Pulse 95 04/30/21 22:03 Resp 19 H 04/30/21 22:03 BP 167/74 04/30/21 22:03 Pulse Ox 92 04/30/21 22:03 04/30/21 04/30/21 05/01/21 14:59 22:59 06:59 Intake Total 100 / 100 Balance 100 / 100 Weight last 48 hrs Weight 70.76 kg Physical Exam Narrative: EXAM NARRATIVE: General: No acute distress, AO x3 HEENT: PERRLA, pupils bilaterally equal and reactive, pallors not present Chest: Normal vesicular breath sounds, no added sounds, equal good air entry bilaterally CVS: S1-S2 regular, no murmurs, no tachycardia, no gallops, no rubs Abdomen: Soft, nontender, no organomegaly, bowel sounds present Neuro: No focal deficits, no facial deformity, AO x3, power 5/5 in all limbs Extremities: No noted fractures Data : 04/30/21 20:59 04/30/21 20:59 Micro: Microbiology 04/30/21 22:00 Blood Culture - Preliminary Blood SPECIMEN COLLECTED 04/30/21 21:45 Blood Culture - Preliminary Blood SPECIMEN COLLECTED A&P Assessment and plan (1) Sepsis: Likely from community-acquired pneumonia. Meets criteria by way of leukocytosis, fever, source of infection Status: Acute Qualifiers: Sepsis type: sepsis due to unspecified organism Sepsis acute organ dysfunction status: with acute organ dysfunction Severe sepsis acute organ dysfunction type: acute respiratory failure Acute respiratory failure type: with hypoxia Severe sepsis shock status: without septic shock Qualified Code(s): A41.9 - Sepsis, unspecified organism; R65.20 - Severe sepsis without septic shock; J96.01 - Acute respiratory failure with hypoxia (2) Pneumonia: Likely community-acquired pneumonia Start on ceftriaxone 1 g IV every 24 hours and azithromycin 500 mg every 24 Supplemental O2 to keep saturation greater than 92% DuoNeb inhalation as needed Urine bacterial and Legionella antigens Sputum culture, blood culture Status: Acute Qualifiers: Laterality: right Lung location: middle lobe of lung Pneumonia type: due to unspecified organism Qualified Code(s): J18.9 - Pneumonia, unspecified organism (3) UTI (urinary tract infection): Status: Acute Qualifiers: Urinary tract infection type: acute cystitis Hematuria presence: without hematuria Qualified Code(s): N30.00 - Acute cystitis without hematuria Additional A&P Information Full code DVT prophylaxis Lovenox Attestations Medical Necessity Statement*: Greater than 2 midnight admission anticipated for management of community-acquired pneumonia with sepsis, hypoxia Coding Level of Care Code Acute Digital Strategy Manager for [facility] Diagnoses Sepsis A41.9; R65.20; J96.01 Sepsis type: sepsis due to unspecified organism Sepsis acute organ dysfunction status: with acute organ dysfunction Severe sepsis acute organ dysfunction type: acute respiratory failure Acute respiratory failure type: with hypoxia Severe sepsis shock status: without septic shock Pneumonia J18.9 Laterality: right Lung location: middle lobe of lung Pneumonia type: due to unspecified organism UTI (urinary tract infection) N30.00 Urinary tract infection type: acute cystitis Hematuria presence: without hematuria
[2021-04-30 23:53] LABS: Add Urine Culture? Yes; Bacteria Urine TRACE /hpf; Bilirubin Urine Neg (Negative); Blood Urine 3+ (Negative); Glucose Urine UA Norm (Normal); Ketones Urine 1+ (Negative); Leukocyte Esterase Urine Trace (Negative); Nitrate Urine Negative (Negative); Protein Urine 1+ (Negative); RBC Urine 0-4 /hpf (0-2); Squamous Epithelial Cell Urine 0-4 /hpf (0-5); Urine Appearance SL Hazy (CLEAR); Urine Color Yellow (Yellow); Urobilinogen Urine Norm (Negative); WBC Urine >100 /hpf (0-5); pH Urine 5 (5-7)
[2021-05-01] VITALS (8 sets, daily range): BP systolic 113–190; BP diastolic 67–94; PULSE 73–98; RESP 15–18; TEMP 36.8–38.9; O2SAT 89–96
[2021-05-01] MEDS: enoxaparin 40 mg/0.4 mL Syringe SUBCUT (01:05)
--- NOTE | 2021-05-01 05:15 | PC.NURSE ---
Patient asleep, oxygen saturstion dropped to 87% on room air. Pt placed on 2L via nasal cannula per verbal order from ED physician
[2021-05-01 06:16] LABS: Potassium, Radom Urine 27 mmol/L; Urine Random Chloride 28 mmol/L; Urine Random Sodium 26 mmol/L
[2021-05-01] MEDS: acetaminophen 325 mg Tablet 650 MG PO ×2 (07:16→14:17)
--- NOTE | 2021-05-01 08:12 | CT_ITS ---
WS: [id number] CT chest wo con [id number] REASON FOR EXAM: CAP IV CONTRAST ADMINISTERED: Noncontrast TOTAL EXAM DLP: 894.[address] scans at [facility] use at least one of these dose optimization techniques: automat ed exposure control; mA and/or kV adjustment per patient size (includes targeted exams where dose is matched to clinical indication); or iterative reconstruction. FINDINGS: The unenhanced mediastinum is unremarkable except for a few small lymph nodes. There is dense consolidation with air bronchograms in the posterior aspect of the right upper lobe. A round the margins of this dense consolidation or areas of groundglass density. The left lung demonstrates some visual thickening and fibrotic change with no definite active parench ymal or pleural abnormality. The right upper lobe bronchus is patent. The right hilar area cannot be accurately evaluated without contrast. Significant degenerative changes in the thoracic spine. No focal bone lesion is identified. No compre ssion fracture noted. CT/CT chest wo con [id number] IMPRESSION: Presumed subacute pneumonitis right upper lobe as above. Nonspecific pattern. A mass in the right lung particularly in the right hilar region is not excluded without intravenous contrast.
[2021-05-01 08:19] LABS: Basophils % 0.3 %; Eosinophils # 0.1 10^3/uL (0.0-0.8); Eosinophils % 0.4 %; Hematocrit 34.6 % (37.0-47.0); Hemoglobin 11.1 g/dL (11.5-15.3); Lymphocytes # 0.6 10^3/uL (0.8-4.8); Lymphocytes % 4.5 %; Mean Corpuscular HGB Conc 32.1 g/dL (30.0-36.0); Mean Corpuscular Hemoglobin 28.2 pg (28.0-34.0); Mean Corpuscular Volume 87.8 fL (81-99); Mean Platelet Volume 11.4 fL (7.4-10.4); Monocytes # 0.5 10^3/uL (0.2-0.9); Monocytes % 3.9 %; Neutrophils # 12.06 10^3/uL (1.8-7.7); Neutrophils % 90.3 %; Nucleated Red Blood Cells % 0 %; Platelet Count 197 10^3/cmm (130-400); Red Blood Count 3.94 10^6/uL (4.1-5.3); Red Cell Distribution Width 14.6 % (12.1-15.1); White Blood Count 13.4 10^3/uL (4.0-10.0)
[2021-05-01 08:28] LABS: Alanine Aminotransferase 38 U/L (0-33); Albumin Level 3.2 g/dL (3.5-5.2); Alkaline Phosphatase 61 IU/L (35-105); Anion Gap 16.2 (5-19); Aspartate Amino Transferase 51 U/L (0-32); Blood Urea Nitrogen 16 mg/dL (8-23); Calcium 8.1 mg/dL (8.5-10.5); Carbon Dioxide 22 mmol/L (22-29); Chloride 96 mmol/L (98-107); Globulin 3.4 g/dL (1.3-4.6); Glucose 193 mg/dL (65-115); Osmolality Calculated 278 mOsm/kg (285-295); Potassium 3.2 mmol/L (3.5-5.1); Sodium 131 mmol/L (136-145); Total Bilirubin 0.2 mg/dL (0.15-1.2); Total Protein 6.6 g/dL (6.6-8.7)
[2021-05-01 08:44] LABS: D Dimer 2.86 ug/mIFEU (0-0.59)
[2021-05-01] MEDS: labetalol 200 mg Tablet PO (10:58)
[2021-05-01] MEDS: pantoprazole DR 40 mg Tablet PO (10:59)
[2021-05-01] MEDS: anastrozole 1 mg Tablet PO (14:01)
--- NOTE | 2021-05-01 14:21 | PC.SOCIAL ---
Santos and Nette are both on [facility].
--- NOTE | 2021-05-01 14:22 | PC.SOCIAL ---
[facility] indicates it is a 48-72 hour at least for a medical bed and no guarantee.
--- NOTE | 2021-05-01 14:41 | PC.SOCIAL ---
Addendum entered by Meghan Winchester RN 05/01/21 14:47: Phone for [facility] is [phone] Original Note: Called [facility] in [facility] and they may have a bed available. Provided presentation for patient and Dr Elias contact number. Physician there will review and call Dr Elais to discuss case. Provided my cell phone number for them to call should she be accepted and at that time will retrieve information of who to call for report. Updated Dr Elias to expect a call.
--- NOTE | 2021-05-01 14:51 | CT_ITS ---
WS: [id number] CTA OF THE CHEST WITH PULMONARY EMBOLISM PROTOCOL TECHNIQUE: High-resolution contrast enhanced CTA of the chest with coronal and sagittal reformatted i mages with pulmonary embolism protocol. MIP images are also reviewed. CLINICAL INFORMATION: HYPOXIA COMPARISON: CT chest May 01, 2021 DLP: 587.[address] scans at [facility] use at least one of these dose optimization techniques: automat ed exposure control; mA and/or kV adjustment per patient size (includes targeted exams where dose is matched to clinical indication); or iterative reconstruction. FINDINGS: Proximal main pulmonary arteries are normal. Enlarged central pulmonary arteries can be seen with pul monary arterial hypertension. Normal segmental and subsegmental pulmonary arteries. No evidence of pu lmonary embolus. Cardiomegaly. Normal caliber thoracic aorta. Normal caliber descending thoracic aorta. Consolidative infiltrate in the right upper lobe consistent with pneumonia. Associated air bronchogra ms. A few additional patchy infiltrates within the right upper lobe. Recommend follow-up to resolutio n. Left lung is well aerated. Small right pleural effusion with compressive atelectasis right lower l obe. Right thyroid nodule measuring 1.8 cm. Slightly enlarged anterior mediastinal and peribronchial lymph nodes. Bronchovascular thickening along the right hilum. Adrenal glands are normal. Cholecystectomy. Hepatomegaly. CT/CT angio chest PE protcl [id number] IMPRESSION: 1. Consolidative infiltrate right upper lobe with air bronchograms consistent with pneumonia. Recommend follow-up to resolution to exclude underlying mass. 2. Bronchovascular thickening along the right hilum. No definite hilar mass. M ild narrowing of the distal right mainstem bronchus. 3. Mild anterior mediastinal and peribronchial lymphadenopathy with lymph node s measuring up to 10 to 12 mm. 4. No evidence of pulmonary embolus. 5. Small right pleural effusion with compressive atelectasis right lower lobe. 6. Enlarged central pulmonary arteries can be seen with pulmonary arterial hyp ertension.
--- NOTE | 2021-05-01 14:53 | PC.SOCIAL ---
Addendum entered by Meghan Winchester RN 05/01/21 14:55: Once bed number is known will be communicated. Original Note: Per Dr Elias patient is accepted at [facility].
--- NOTE | 2021-05-01 15:16 | PC.SOCIAL ---
Chiquis called with room [address] [facility] and number for nurse to call report. Request neg covid test and facesheet to be faxed which was done and confirmation that it was sen successfully. printed reports provided to Suki in ED and ask that disc be requested of imaging. She will fill out transfer form. notified Dr Elias that this has not yet been discussed with pt and/ or family. He is also aware he will need to sign transfer sheet once completed.
--- NOTE | 2021-05-01 16:21 | P.TS_ITS ---
Transfer Summary Providers Date of Admission: 05/01/21 01:48 Date of Discharge: 05/01/21 Attending Provider at Admission: Elle Buchanan MD Attending Provider at Transfer: Shireen Elias MD Primary Care Provider: Mabel Cid MD Anticipated Date of Transfer: Anticipated date of transfer: 05/01/21 Receiving Facility & Provider: Receiving Provider: [] Receiving facility: [] Diagnoses at Discharge Discharge Diagnosis (1) Sepsis: Status: Acute Qualifiers: Sepsis type: sepsis due to unspecified organism Sepsis acute organ dysfunction status: with acute organ dysfunction Severe sepsis acute organ dysfunction type: acute respiratory failure Acute respiratory failure type: with hypoxia Severe sepsis shock status: without septic shock Qualified Code(s): A41.9 - Sepsis, unspecified organism; R65.20 - Severe sepsis without septic shock; J96.01 - Acute respiratory failure with hypoxia (2) Pneumonia: Status: Acute Qualifiers: Laterality: right Lung location: middle lobe of lung Pneumonia type: due to unspecified organism Qualified Code(s): J18.9 - Pneumonia, unspecified organism (3) UTI (urinary tract infection): Status: Acute Qualifiers: Urinary tract infection type: acute cystitis Hematuria presence: without hematuria Qualified Code(s): N30.00 - Acute cystitis without hematuria Reason for Visit Reason for Visit: FEVER FALL YESTERDAY Hospital Course Hospital Course HPI Saima Cueva is a 67 year old female with a past medical history of obstructive sleep apnea, nocturnal hypoxia for which she was recommended to be on 3 L of oxygen at nighttime however she does not use this, gastritis, history of diastolic CHF who presented to the ER today complaining of 3 weeks of progressively worsening dyspnea, wheezing made much worse over the last 3 days. Denies any chest pain or palpitations. Also complains of a chronic cough over the same timeframe, no significant expectoration. He has chronic lower extremity edema and has not noted any increased edema recently. No history of orthopnea. Over the last 3 days she is also complaining of 3-4 episodes of diarrhea per day and 2-3 episodes of vomiting. This is reportedly new per patient. Diagnostics in the ER showed elevated D-dimer at 10 therefore she received a follow-up CTA which did not show any PE however right upper lobe some changes of pneumonitis were noted. She has not had any fever at home. Currently saturating 99% on 2 L/min nasal cannula. She is a non-smoker. Denies any past cardiac history, however stress test from 2015 was abnormal with areas of decreased tracer uptake in the mid and apical inferolateral and basal septal regions. LVEF was normal at 76%. Last echocardiogram from 2015 with grade 1 diastolic dysfunction. 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 She has not been on any inhalers recently. Not received any antibiotics recently. Other labs notable for positive UA, denies any urinary symptoms. CTA incidentally made note of atrophic left kidney with dilated renal pelvis and UPJ stone, patient complains of vague back pain, follow-up CT renal has been ordered, currently pending. Compared to CT abdomen from 2019, left renal atrophy was noted even at the time however no pelvicalyceal dilatation was mentioned. HOSP COURSE: Patient was admitted for management of sepsis secondary to UTI however she remained hypoxic was requiring 2 L nasal cannula and tachycardic D-dimer was requested which came back high at 2.8, CTA has been requested, therapeutic dose of Lovenox administered, she was given ceftriaxone and azithromycin for possible pneumonia, her CT scan showing dense consolidation in the right upper lobe however malignancy not ruled out. CTA did not reveal any pulmonary embolism. Consistent with pneumonia. We do not have any beds available in the hospital, there are 8 patients in the ER were currently waiting for a bed, , she has been accepted by [facility] by Dr. Hernandes CT/CT angio chest PE protcl [id number] IMPRESSION: 1. Consolidative infiltrate right upper lobe with air bronchograms consistent with pneumonia. Recommend follow-up to resolution to exclude underlying mass. 2. Bronchovascular thickening along the right hilum. No definite hilar mass. Mild narrowing of the distal right mainstem bronchus. 3. Mild anterior mediastinal and peribronchial lymphadenopathy with lymph nodes measuring up to 10 to 12 mm. 4. No evidence of pulmonary embolus. 5. Small right pleural effusion with compressive atelectasis right lower lobe. 6. Enlarged central pulmonary arteries can be seen with pulmonary arterial hypertension. CT/CT chest wo con [id number] IMPRESSION: Presumed subacute pneumonitis right upper lobe as above. Nonspecific pattern. A mass in the right lung particularly in the right hilar region is not excluded without intravenous contrast. Physical Exam Narrative: EXAM NARRATIVE: General: No acute distress, AO x3 HEENT: PERRLA, pupils bilaterally equal and reactive, pallors not present Chest: Normal vesicular breath sounds, no added sounds, equal good air entry bilaterally CVS: S1-S2 regular, no murmurs, no tachycardia, no gallops, no rubs Abdomen: Soft, nontender, no organomegaly, bowel sounds present Neuro: No focal deficits, no facial deformity, AO x3, power 5/5 in all limbs Extremities: No noted fracture TS Data Data Completed and Pending: Completed Studies During Hospitalization Category Date Time Status CT angio chest PE protcl [id number] Stat Cat Scan 05/01/21 14:[address] chest wo con 7 [id number] Stat Cat Scan 05/01/21 08:12 Completed XR chest 1V vianney ble [id number] Stat Exams 04/30/21 20:45 Completed XR knee LT 3V* 73 [id number] Stat Exams 04/30/21 20:45 Completed XR knee RT 3V* 73 562 Stat Exams 04/30/21 20:45 Completed Pending at discharge Category Date Time Status Blood Culture Sta t Lab 04/30/21 22:00 Results CMP [Comprehensiv e Metabolic Panel] [facility] Lab 05/02/21 04:00 Ordered Complete Blood Co unt w/Auto [facility] Lab 05/02/21 04:00 Ordered Coronavirus Test [facility] Lab 05/01/21 12:09 Ordered Procalcitonin AM LABS Lab 05/02/21 04:00 Ordered Sputum Culture Ro utine Lab 05/01/21 05:51 Uncollected Urine Culture Sta t Lab 04/30/21 23:34 Received Labs from last 24 hours 05/01/21 05/01/21 05/01/21 08:05 08:05 08:05 WBC 13.4 H RBC 3.94 L Hgb 11.1 L Hct 34.6 L MCV 87.8 MCH 28.2 MCHC 32.1 RDW 14.6 Plt Count 197 MPV 11.4 H Neut % (Auto) 90.3 Lymph % (Auto) 4.5 [place] % (Auto) 3.9 Eos % (Auto) 0.4 Baso % (Auto) 0.3 Neut # (Auto) 12.06 H Lymph # (Auto) 0.6 L [place] # (Auto) 0.5 Eos # (Auto) 0.1 Baso # (Auto) 0.0 Nucleated RBC % (a uto) 0 Total Counted Atypical Lymphs % Absolute Neutrophi ls Segmented Neutroph ils Abs Segm Neuts (Ma n) Band Neutrophils Abs Band Neuts (Ma n) Absolute Lymphocyt es Lymphocytes (Manua l) Monocytes (Manual) Absolute Monocytes Eosinophils (Manua l) Absolute Eosinophi ls Basophils (Manual) Absolute Basophils Metamyelocytes Nucleated RBCs # 0.0 Platelet Estimate D-Dimer 2.86 H Sodium 131 L Potassium 3.2 L Chloride 96 L Carbon Dioxide 22 Anion Gap 16.2 BUN 16 Creatinine 0.6 GFR Calculation Not Reportable Glucose 193 H Calculated Osmolal ity 278 L Lactate Calcium 8.1 L Total Bilirubin 0.2 AST 51 H ALT 38 H Alkaline Phosphata se 61 Total Protein 6.6 Albumin 3.2 L Globulin 3.4 Urine Color Urine Appearance Urine pH Ur Specific Gravit y Urine Protein Urine Glucose (UA) Urine Ketones Urine Blood Urine Nitrate Urine Bilirubin Urine Urobilinogen Ur Leukocyte Daniela ase Urine RBC Urine WBC Ur Squamous Epith Cells Amorphous Sediment Urine Bacteria Ur Random Sodium Ur Random Potassiu m Ur Random Chloride SARS-CoV-2 Ag (Rap id) 04/30/21 04/30/21 04/30/21 23:34 23:34 22:00 WBC RBC Hgb Hct MCV MCH MCHC RDW Plt Count MPV Neut % (Auto) Lymph % (Auto) [place] % (Auto) Eos % (Auto) Baso % (Auto) Neut # (Auto) Lymph # (Auto) [place] # (Auto) Eos # (Auto) Baso # (Auto) Nucleated RBC % (a uto) Total Counted Atypical Lymphs % Absolute Neutrophi ls Segmented Neutroph ils Abs Segm Neuts (Ma n) Band Neutrophils Abs Band Neuts (Ma n) Absolute Lymphocyt es Lymphocytes (Manua l) Monocytes (Manual) Absolute Monocytes Eosinophils (Manua l) Absolute Eosinophi ls Basophils (Manual) Absolute Basophils Metamyelocytes Nucleated RBCs # Platelet Estimate D-Dimer Sodium Potassium Chloride Carbon Dioxide Anion Gap BUN Creatinine GFR Calculation Glucose Calculated Osmolal ity Lactate Calcium Total Bilirubin AST ALT Alkaline Phosphata se Total Protein Albumin Globulin Urine Color Yellow Urine Appearance Sl hazy Urine pH 5 Ur Specific Gravit y 1.010 Urine Protein 1+ H Urine Glucose (UA) Norm Urine Ketones 1+ H Urine Blood 3+ H Urine Nitrate Negative Urine Bilirubin Neg Urine Urobilinogen Norm Ur Leukocyte Daniela ase Trace H Urine RBC 0-4 H Urine WBC >100 H Ur Squamous Epith Cells 0-4 H Amorphous Sediment Not Reportable Urine Bacteria Trace Ur Random Sodium 26 Ur Random Potassiu m 27 Ur Random Chloride 28 SARS-CoV-2 Ag (Rap id) Negative 04/30/21 04/30/21 04/30/21 20:59 20:59 20:59 WBC 17.2 H RBC 4.29 Hgb 12.2 Hct 38.2 MCV 89.0 MCH 28.4 MCHC 31.9 RDW 14.6 Plt Count 188 MPV 12.2 H Neut % (Auto) Lymph % (Auto) Not Reportable [place] % (Auto) Not Reportable Eos % (Auto) Baso % (Auto) Neut # (Auto) Lymph # (Auto) Not Reportable [place] # (Auto) Not Reportable Eos # (Auto) Baso # (Auto) Nucleated RBC % (a uto) Total Counted 100 Atypical Lymphs % 0.0 Absolute Neutrophi ls 15.3 H Segmented Neutroph ils 71 Abs Segm Neuts (Ma n) 12.2 H Band Neutrophils 18.0 Abs Band Neuts (Ma n) 3.1 H Absolute Lymphocyt es 0.9 L Lymphocytes (Manua l) 5 Monocytes (Manual) 5.0 Absolute Monocytes 0.9 H Eosinophils (Manua l) 0 Absolute Eosinophi ls 0.0 Basophils (Manual) 0.0 Absolute Basophils 0.0 Metamyelocytes 1.0 Nucleated RBCs # Platelet Estimate Normal D-Dimer Sodium 126 L Potassium 3.7 Chloride 89 L Carbon Dioxide 22 Anion Gap 18.7 BUN 22 Creatinine 0.8 GFR Calculation Not Reportable Glucose 109 Calculated Osmolal ity 266 L Lactate 0.8 Calcium 9.1 Total Bilirubin 0.4 AST 66 H ALT 43 H Alkaline Phosphata se 73 Total Protein 7.5 Albumin 3.8 Globulin 3.7 Urine Color Urine Appearance Urine pH Ur Specific Gravit y Urine Protein Urine Glucose (UA) Urine Ketones Urine Blood Urine Nitrate Urine Bilirubin Urine Urobilinogen Ur Leukocyte Daniela ase Urine RBC Urine WBC Ur Squamous Epith Cells Amorphous Sediment Urine Bacteria Ur Random Sodium Ur Random Potass[place] m Ur Random Chloride SARS-CoV-2 Ag (Rap id) Vitals: Last Vital Signs Temp 102.1 F H 05/01/21 15:21 Pulse 73 05/01/21 15:21 Resp 15 05/01/21 15:21 BP 115/67 05/01/21 15:21 Pulse Ox 96 05/01/21 15:21 TS Medications Medications Home Medications anastrozole 1 mg tablet 1 mg PO DAILY 04/29/20 [History Confirmed 04/30/21] calcium carbonate 600 mg calcium (1,500 mg) tablet 1,200 mg PO DAILY tab 04/29/20 [History Confirmed 04/30/21] felodipine 5 mg tablet,extended release 24 hr 10 mg PO DAILY tab 04/29/20 [History Confirmed 04/30/21] labetalol 200 mg tablet 200 mg PO BID 04/29/20 [History Confirmed 04/30/21] magnesium 250 mg tablet 250 mg PO DAILY 04/29/20 [History Confirmed 04/30/21] multivitamin 1 tab PO DAILY 04/29/20 [History Confirmed 04/30/21] vitamin B complex 1 tab PO DAILY 04/29/20 [History Confirmed 04/30/21] ondansetron HCl [Zofran] 4 mg PO Q6H PRN #20 tab 10/27/20 [Rx Confirmed 04/30/21] tramadol 50 mg PO TID PRN #7 tab 02/16/21 [Rx Confirmed 04/30/21] nitrofurantoin monohyd/m-cryst 100 mg PO BID 04/30/21 [History Confirmed 04/30/21] pantoprazole 40 mg PO BID 04/30/21 [History Confirmed 04/30/21] Active Medications Acetaminophen (Acetaminophen 325 Mg Tablet) 650 mg PO Q6H PRN PRN Reason: Mild/Mod Pain Or Temp >/= 101 Last Admin: 05/01/21 14:17 Dose: 650 mg Documented by: Albuterol/Ipratropium (Ipratropium-Albuterol 3 Ml Neb) 3 ml INHALATION Q6H.RESPIRATORY PRN PRN Reason: wheezing Anastrozole (Anastrozole 1 Mg Tablet) 1 mg PO DAILY [facility] Last Admin: 05/01/21 14:01 Dose: 1 mg Documented by: Enoxaparin Sodium (Enoxaparin 40 Mg/0.4 Ml Syringe) 40 mg SUBCUT Q24H [facility] Last Admin: 05/01/21 01:05 Dose: 40 mg Documented by: Felodipine (Felodipine Er 5 Mg Tablet) 10 mg PO DAILY [facility] Last Admin: 05/01/21 10:57 Dose: 10 mg Documented by: Azithromycin 500 mg/ Sodium (Chloride) 250 mls @ 250 mls/hr IV Q24H [facility]; Protocol Stop: 05/04/21 05:48 Ceftriaxone Sodium 1,000 mg/ (Sodium Chloride) 50 mls @ 100 mls/hr IV Q24H [facility]; Protocol Labetalol HCl (Labetalol 200 Mg Tablet) 200 mg PO BID [facility] Last Admin: 05/01/21 10:58 Dose: 200 mg Documented by: Ondansetron HCl (Ondansetron 2 Mg/Ml Sdv 2 Ml) 4 mg IVP Q8H PRN PRN Reason: vomiting, or N/V if npo Pantoprazole Sodium (Pantoprazole Dr 40 Mg Tablet) 40 mg PO BID [facility] Last Admin: 05/01/21 10:59 Dose: 40 mg Documented by: Tramadol HCl (Tramadol 50 Mg Tablet) 50 mg PO TID PRN PRN Reason: pain Discharge Plan Discharge Patient Disposition: Xfer Other Condition: Stable Prescriptions: Continued vitamin B complex [B Complex-Vitamin B12] Tablet 1 tab PO DAILY RF: 0 anastrozole 1 mg tablet 1 mg PO DAILY RF: 0 labetalol 200 mg tablet 200 mg PO BID RF: 0 felodipine 5 mg tablet extended release 24 hr 10 mg PO DAILY RF: 0 calcium carbonate [Calcium 600] 600 mg calcium (1,500 mg) tablet 1,200 mg PO DAILY RF: 0 multivitamin Tablet 1 tab PO DAILY RF: 0 magnesium 250 mg tablet 250 mg PO DAILY RF: 0 ondansetron HCl [Zofran] 4 mg tablet 4 mg PO Q6H PRN (Reason: nausea and vomiting) Qty: 20 RF: 0 nitrofurantoin monohyd/m-cryst 100 mg capsule 100 mg PO BID RF: 0 pantoprazole 40 mg tablet,delayed release (DR/EC) 40 mg PO BID RF: 0 tramadol 50 mg tablet 50 mg PO TID PRN (Reason: pain) Qty: 7 RF: 0 Discharge Orders: Transfer Out of Facility (Order); Ordered 05/01/21 Ordered By: Shireen Elias Referrals: Mabel Cid MD [Primary Care Provider] - Transfer Attestations Time Spent in Transfer Care*: less than 30 min Quality Metrics Clinical Quality Measures: During this hospital stay, did patient experience: None Coding Level of Care Code Acute [employer] [facility] Fwd Diagnoses Sepsis A41.9; R65.20; J96.01 Sepsis type: sepsis due to unspecified organism Sepsis acute organ dysfunction status: with acute organ dysfunction Severe sepsis acute organ dysfunction type: acute respiratory failure Acute respiratory failure type: with hypoxia Severe sepsis shock status: without septic shock Pneumonia J18.9 Laterality: right Lung location: middle lobe of lung Pneumonia type: due to unspecified organism UTI (urinary tract infection) N30.00 Urinary tract infection type: acute cystitis Hematuria presence: without hematuria
[2021-05-01] MEDS: TRAMadol 50 mg Tablet PO (17:45)
[2021-05-01] MEDS: enoxaparin 80 mg/0.8 mL Syringe 70 MG SUBCUT (17:46)
== END 2021-05-01 17:47 | disposition short-term general hospital (02) | DRG 871 ==
LOC: ER 23:46 → ER IP 05-01 08:10
PROVIDERS: Physician Assistant; Admitting Provider Student in an Organized Health Care Education/Training Program; Emergency Provider Emergency Medicine; PCP Family Medicine; Visit Provider Internal Medicine
DX: A41.9 Sepsis, unspecified organism (principal); J18.9 Pneumonia, unspecified organism; J96.01 Acute respiratory failure with hypoxia; E87.1 Hypo-osmolality and hyponatremia; I50.30 Unspecified diastolic (congestive) heart failure; N30.00 Acute cystitis without hematuria; R65.20 Severe sepsis without septic shock; W19.XXXA Unspecified fall, initial encounter; D64.9 Anemia, unspecified; C50.912 Malignant neoplasm of unspecified site of left female breast; Z85.828 Personal history of other malignant neoplasm of skin; E78.5 Hyperlipidemia, unspecified; I11.0 Hypertensive heart disease with heart failure; Z90.12 Acquired absence of left breast and nipple; G47.33 Obstructive sleep apnea (adult) (pediatric); N26.1 Atrophy of kidney (terminal); R91.8 Other nonspecific abnormal finding of lung field; Z79.811 Long term (current) use of aromatase inhibitors
CPT/HCPCS: 36415; 71045; 71250; 71275; 73562; 80053; 81001; 82436; 83605; 84133; 84300; 85007; 85025; 85378; 86403; 87040; 87086; 87426; 87449; 87641; 94664; 96365; 96367; 96372; 99291; J0456; J0696; J1650; J7030; J7050; J8999; Q9967

== ENCOUNTER 2021-05-19 10:50 | Outpatient (CLI) | payer MEDICARE, SELFPAY ==
--- NOTE | 2021-05-19 10:55 | MM_ITS ---
WS: [id number] DIAGNOSTIC BILATERAL DIGITAL MAMMOGRAM WITH CAD HISTORY: HX OF BREAST CA COMPARISON: 04/22/2020 and 04/19/2019 TECHNIQUE: Bilateral craniocaudad, mediolateral oblique, and mediolateral views are submitted. Comput er aided detection utilized. Breast composition: There are scattered areas of fibroglandular density. No suspicious masses or calc ifications. Mild trabecular thickening LEFT breast due to prior radiation and volume loss. MM/[place] [id number] IMPRESSION: BI-RADS: 2-Benign FOLLOW UP: 1 Year Follow-up
== END 2021-05-19 10:51 | disposition home or self-care (01) ==
LOC: RADSHAW 10:53
PROVIDERS: PCP Family Medicine; Visit Provider Family Medicine
DX: Z85.3 Personal history of malignant neoplasm of breast (principal)
CPT/HCPCS: 77066

== ENCOUNTER 2021-06-30 09:47 | Outpatient (CLI) | payer MEDICARE, SELFPAY ==
--- NOTE | 2021-06-30 09:54 | XR_ITS ---
WS: [id number] SCREENING DEXA SCAN [employer] CLINICAL INFORMATION: POSTMENOPAUSAL COMPARISON: January 22, 2017 FINDINGS: The L1-L4 bone mineral density measures 1.023 g/cm2. This corresponds to a T score score of -1.3 and Z score of 0.2. Left femoral neck bone mineral density measures 0.829 g/cm2. This corresponds to a T score of -1.4 an d Z score of 0.4. Right femoral neck bone mineral density measures 0.786 g/cm2. This corresponds to a T score -1.8of an d Z score of 0.1. Mean femoral neck bone mineral density measures 0.808 g/cm2. This corresponds to a T score of -1.6 an d Z score of 0.2. XR/XR DEXA axial skeleton* [id number] IMPRESSION: Osteopenia Patient's FRAX calculated 10 year probability for major osteoporotic fracture i s 30.1 % and osteoporotic hip fracture is 10.7%.
== END 2021-06-30 09:48 | disposition home or self-care (01) ==
PROVIDERS: PCP Family Medicine; Visit Provider Family Medicine
DX: Z78.0 Asymptomatic menopausal state (principal); M85.80 Other specified disorders of bone density and structure, unspecified site
CPT/HCPCS: 77080

== ENCOUNTER 2021-08-21 13:00 | Outpatient (CLI) | payer MEDICARE, SELFPAY ==
[2021-08-21 13:54] LABS: Basophils % 0.5 %; Eosinophils # 0.2 10^3/uL (0.0-0.8); Eosinophils % 2.7 %; Hematocrit 38.6 % (37.0-47.0); Hemoglobin 12.5 g/dL (11.5-15.3); Lymphocytes # 1.8 10^3/uL (0.8-4.8); Lymphocytes % 21.5 %; Mean Corpuscular HGB Conc 32.4 g/dL (30.0-36.0); Mean Corpuscular Hemoglobin 28.8 pg (28.0-34.0); Mean Corpuscular Volume 88.9 fl (81-99); Mean Platelet Volume 12.1 fL (7.4-10.4); Monocytes # 0.6 10^3/uL (0.2-0.9); Monocytes % 7.2 %; Neutrophils # 5.79 10^3/uL (1.8-7.7); Neutrophils % 67.7 %; Nucleated Red Blood Cells % 0 %; Platelet Count 260 10^3/cmm (130-400); Red Blood Count 4.34 10^6/uL (4.1-5.3); Red Cell Distribution Width 13.6 % (12.1-15.1); White Blood Count 8.5 10^3/uL (4.0-10.0)
[2021-08-21 14:23] LABS: Alanine Aminotransferase 18 U/L (0-33); Albumin Level 4.3 g/dL (3.5-5.2); Alkaline Phosphatase 87 IU/L (35-105); Anion Gap 18.2 (5-19); Blood Urea Nitrogen 25 mg/dL (8-23); Calcium 9.1 mg/dL (8.5-10.5); Carbon Dioxide 24 mmol/L (22-29); Chloride 102 mmol/L (98-107); Globulin 3.1 g/dL (1.3-4.6); Glucose 117 mg/dL (65-115); Osmolality Calculated 295 mOsm/kg (285-295); Potassium 4.2 mmol/L (3.5-5.1); Sodium 140 mmol/L (136-145); Total Bilirubin 0.2 mg/dL (0.15-1.2); Total Protein 7.4 g/dL (6.6-8.7)
[2021-08-21 14:33] LABS: Aspartate Amino Transferase 5 U/L (0-32)
--- NOTE | 2021-08-21 16:04 | ONC FU_ITS ---
Dr. Finley follow up note Patient: Stephanie Sin Unit #: [id number]: [id number] Dicatated By: Holland Finley M.D.Date of Visit:Aug 21, 2021 Onc Med Follow-up/Prog Note History of Present Illness: Mrs. 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 Patient tolerated procedure well. As per patient her routine follow-up mammogram showed an abnormal area for which on 03/16/2018 she underwent biopsy which was suspicious for intraductal papillary carcinoma No history of postmenopausal hormone or contraceptive use, she had 6 pregnancies 5 live births Status post postlumpectomy radiation therapy finished on 07/04/2018 Started on Arimidex/vitamin D/calcium for 5 years on 05/09/2018 Follow-up mammogram done on 06/20/2019 showed BI-RADS 2-benign Follow-up mammogram done on April 22, 2020 showed BI-RADS 2, benign, Mammogram done on May 19, 2021 shows BI-RADS 2, benign tolerating Arimidex Came for follow-up, denies any specific complaints, no fever chills, no nausea or vomiting, no diarrhea constipation, no new bony pains, no headaches, no hot flashes, as per patient she missed her last appointment because of being sick with urinary tract infection subsequently developed urosepsis and up in hospital in [place]. And she recently underwent follow-up mammogram in May 2021, it was benign and also had DEXA scan done which shows osteopenia and she is on vitamin D and calcium supplement. She is also on Arimidex, tolerating well . Medications: Acidophilus Capsule Oral, Anastrozole 1 (1 mg) Tablet Oral daily, B Complex Plus 1 Tablet Oral daily, B-12 3 (1000 mcg) Tablet Oral daily, B-50 1 Tablet Oral daily, Calcium & Magnesium Carbonates Tablet Oral, Felodipine ER 1 Tablet (of 5 mg) Tablet SR 24 HR Oral b.i.d., [employer] Energy Multi-Vitamin Capsule, Labetalol HCl 1 Tablet (of 200 mg) Oral b.i.d., Vitamin C 1 (1000 mg) Tablet Oral daily Allergies: antidepressants, latex, Librium, and Penicillins. Review of Systems: Review of Systems is not available for this patient. Vital Signs: Performed on Aug 21, 2021 15:10 Height - 60.00 in Weight - 161.0 lbs (HIGH) BSA - 1.70 sq.m BMI - 31.44 (HIGH) Temperature - 98.9 F (HIGH) Pulse - 68 /min Respiration - 20 /min BP - 147/72 mm(hg) (HIGH) O2 Sat - 96 % Pain - 0 Fatigue - 0 Performance Status: 0 - Fully active, able to carry on all predisease activities without restrictions. (ECOG) Physical Examination: Respiratory - Lungs are clear to auscultation, Cardiovascular - Regular rate and rhythm of heart, Gastrointestinal - Soft, bowel sounds present, Extremities - No visible edema. Lab/Imaging: Most recent lab results are not available for this patient. 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 Final pathology shows DCIS 0.5 x 0.4 cm, cribriform/papillary histologic growth pattern margins clear but inferior margin within 1 mm ER 98%, AK 97% Tis (DCIS),N0 stage 0 Started on Arimidex 1 mg daily for 5 years, on 05/09/2018 s/p postlumpectomy radiation therapy finished on 07/04/18 Iron deficiency anemia on oral iron Plan: .Discussed with patient regarding her labs white blood count 8.5 hemoglobin 12.5 hematocrit 38.8 platelets 260,000 CMP within normal limits Clinically, patient doing well with no new signs symptom suggestive of recurrence of disease, tolerating Arimidex well her follow-up mammogram was unremarkable., Her follow-up CBC shows improvement in her hemoglobin, at this point, she will continue with her Arimidex and return to clinic in 6 months. Signed By: Holland Finley M.D. <<Signature on File>>
== END 2021-08-21 13:01 | disposition home or self-care (01) ==
LOC: ONCMED 13:04
PROVIDERS: PCP Family Medicine; Visit Provider Internal Medicine Hematology & Oncology
DX: C50.812 Malignant neoplasm of overlapping sites of left female breast (principal); Z17.0 Estrogen receptor positive status [ER+]; Z90.12 Acquired absence of left breast and nipple; Z79.811 Long term (current) use of aromatase inhibitors; D50.9 Iron deficiency anemia, unspecified; Z79.899 Other long term (current) drug therapy
CPT/HCPCS: 36415; 80053; 85025; 99214

== ENCOUNTER 2022-03-12 13:49 | Oncology outpatient (recurring) (ONCR) | payer MEDICARE, SELFPAY | END 2022-03-12 23:59 | disposition home or self-care (01) | PROVIDERS: PCP Family Medicine; Visit Provider Internal Medicine Hematology & Oncology | DX: D05.12 Intraductal carcinoma in situ of left breast (principal); E55.9 Vitamin D deficiency, unspecified; Z79.899 Other long term (current) drug therapy; Z79.818 Long term (current) use of other agents affecting estrogen receptors and estrogen levels | CPT/HCPCS: 99214 ==

== ENCOUNTER 2022-05-22 10:06 | Outpatient (CLI) | payer MEDICARE, SELFPAY ==
--- NOTE | 2022-05-22 10:16 | MM_ITS ---
WS: [id number] Bilateral diagnostic 3D tomosynthesis digital mammogram, 05/22/2022 Clinical Data: HX OF BREAST CA Comparison: 05/19/2021, 04/22/2020, 04/19/2019, 04/18/2018, 02/10/2018, 01/26/2018, 01/22/2017, 04/03/2013. Findings: The breasts show fibroglandular tissue. No recurrent carcinomas seen. There are no spiculated masses or clustered calcifications. The left breast is slightly smaller than the right breast. There is a mo le marker on the right breast. MM/[place] [id number] Impression: 1. Negative bilateral mammograms. 2. Recommend annual mammograms. BIRADS: 2-Benign FOLLOW UP: 1 Year Follow-up The CAD tool checker was used.
== END 2022-05-22 10:07 | disposition home or self-care (01) ==
PROVIDERS: PCP Family Medicine; Visit Provider Family Medicine
DX: Z85.3 Personal history of malignant neoplasm of breast (principal)
CPT/HCPCS: 77062

== ENCOUNTER 2022-09-11 09:15 | Oncology outpatient (recurring) (ONCR) | payer MEDICARE, SELFPAY ==
[2022-09-11 09:44] LABS: Basophils # 0.1 10^3/uL (0.0-0.1); Basophils % 0.6 %; Eosinophils # 0.2 10^3/uL (0.0-0.8); Eosinophils % 2.3 %; Hematocrit 41.8 % (37.0-47.0); Hemoglobin 13.2 g/dL (11.5-15.3); Lymphocytes % 21.6 %; Mean Corpuscular HGB Conc 31.6 g/dL (30.0-36.0); Mean Corpuscular Hemoglobin 28.5 pg (28.0-34.0); Mean Corpuscular Volume 90.3 fl (81-99); Mean Platelet Volume 12.1 fL (7.4-10.4); Monocytes # 0.8 10^3/uL (0.2-0.9); Monocytes % 9.2 %; Neutrophils # 5.99 10^3/uL (1.8-7.7); Neutrophils % 66.1 %; Nucleated Red Blood Cells % 0 %; Platelet Count 252 10^3/cmm (130-400); Red Blood Count 4.63 10^6/uL (4.1-5.3); Red Cell Distribution Width 14.3 % (12.1-15.1); White Blood Count 9.1 10^3/uL (4.0-10.0)
[2022-09-11 10:04] LABS: Alanine Aminotransferase 21 U/L (0-33); Albumin Level 4.1 g/dL (3.5-5.2); Alkaline Phosphatase 94 U/L (35-105); Anion Gap 13.4 (5-19); Aspartate Amino Transferase 22 U/L (0-32); Blood Urea Nitrogen 20 mg/dL (8-23); Calcium 9.4 mg/dL (8.5-10.5); Carbon Dioxide 28 mmol/L (22-29); Chloride 102 mmol/L (98-107); Globulin 3.1 g/dL (1.3-4.6); Glucose 95 mg/dL (65-115); Osmolality Calculated 290 mOsm/kg (285-295); Potassium 4.4 mmol/L (3.5-5.1); Sodium 139 mmol/L (136-145); Total Bilirubin 0.2 mg/dL (0.15-1.2); Total Protein 7.2 g/dL (6.6-8.7)
== END 2022-10-03 23:59 | disposition home or self-care (01) ==
PROVIDERS: PCP Family Medicine; Visit Provider Internal Medicine Hematology & Oncology
DX: C50.112 Malignant neoplasm of central portion of left female breast (principal); Z17.0 Estrogen receptor positive status [ER+]; Z79.811 Long term (current) use of aromatase inhibitors; Z23 Encounter for immunization
CPT/HCPCS: 36415; 80053; 85025; 90471; 90686; 99214

== ENCOUNTER 2023-03-18 11:39 | Oncology outpatient (recurring) (ONCR) | payer MEDICARE, SELFPAY ==
[2023-03-18 12:12] VITALS: BP 174/95; PULSE 98; RESP 18; TEMP 37.1; O2SAT 90
[2023-03-18 12:27] LABS: Basophils % 0.4 %; Eosinophils # 0.4 10^3/uL (0.0-0.8); Eosinophils % 3.7 %; Hematocrit 40.7 % (37.0-47.0); Hemoglobin 12.6 g/dL (11.5-15.3); Lymphocytes # 2.3 10^3/uL (0.8-4.8); Lymphocytes % 22.6 %; Mean Corpuscular Hemoglobin 27.9 pg (28.0-34.0); Mean Corpuscular Volume 90.2 fl (81-99); Mean Platelet Volume 11.5 fL (7.4-10.4); Monocytes # 0.6 10^3/uL (0.2-0.9); Neutrophils # 6.78 10^3/uL (1.8-7.7); Neutrophils % 66.9 %; Nucleated Red Blood Cells % 0 %; Platelet Count 228 10^3/cmm (130-400); Red Blood Count 4.51 10^6/uL (4.1-5.3); Red Cell Distribution Width 14.2 % (12.1-15.1); White Blood Count 10.1 10^3/uL (4.0-10.0)
[2023-03-18 12:48] LABS: Alanine Aminotransferase 22 U/L (0-33); Albumin Level 4.1 g/dL (3.5-5.2); Alkaline Phosphatase 87 U/L (35-105); Aspartate Amino Transferase 23 U/L (0-32); Blood Urea Nitrogen 23 mg/dL (8-23); Calcium 9.1 mg/dL (8.5-10.5); Carbon Dioxide 25 mmol/L (22-29); Chloride 104 mmol/L (98-107); Globulin 2.9 g/dL (1.3-4.6); Glucose 92 mg/dL (65-115); Osmolality Calculated 291 mOsm/kg (285-295); Sodium 139 mmol/L (136-145); Total Bilirubin 0.2 mg/dL (0.15-1.2)
[2023-03-18 13:04] LABS: Anion Gap 14.3 (5-19); Potassium 4.3 mmol/L (3.5-5.1)
== END 2023-04-02 23:59 | disposition home or self-care (01) ==
PROVIDERS: PCP Family Medicine; Visit Provider Internal Medicine Hematology & Oncology
DX: C50.112 Malignant neoplasm of central portion of left female breast (principal); Z17.0 Estrogen receptor positive status [ER+]; Z79.811 Long term (current) use of aromatase inhibitors
CPT/HCPCS: 36415; 80053; 85025; 99214

== ENCOUNTER → 2023-04-26 09:53 | Outpatient (BNVA) | payer MEDICARE, SELFPAY | PROVIDERS: PCP Family Medicine; Visit Provider Nurse Practitioner Family | DX: L57.0 Actinic keratosis (principal); Z85.828 Personal history of other malignant neoplasm of skin; L57.8 Other skin changes due to chronic exposure to nonionizing radiation; D22.5 Melanocytic nevi of trunk; L85.3 Xerosis cutis; D69.2 Other nonthrombocytopenic purpura | CPT/HCPCS: 17004; 99213 ==

== ENCOUNTER 2023-05-27 07:49 | Outpatient (CLI) | payer MEDICARE, SELFPAY ==
--- NOTE | 2023-05-27 08:01 | MM_ITS ---
WS: [id number] BILATERAL 3D TOMOSYNTHESIS DIGITAL DIAGNOSTIC MAMMOGRAPHY WITH CAD CLINICAL INFORMATION: Follow up HISTORY: LEFT breast lumpectomy COMPARISON: 2021 TECHNIQUE: Bilateral CC, MLO, and ML views. FINDINGS: Scattered fibroglandular densities bilaterally. Prior lumpectomy LEFT breast with volume loss. Associ ated trabecular thickening and skin thickening due to treatment-related changes similar to previous. Vascular calcification. Stable intramammary lymph node outer LEFT breast. No suspicious focal mass, asymmetry, calcifications, or architectural distortion. No evidence of maday gnancy. IMPRESSION: MM/[place] [id number] BI-RADS: 2-Benign FOLLOW UP: 1 Year Follow-up Recommend return to annual diagnostic mammography.
== END 2023-05-27 07:50 | disposition home or self-care (01) ==
LOC: RAD 07:52
PROVIDERS: PCP Family Medicine; Visit Provider Internal Medicine Hematology & Oncology
DX: D05.12 Intraductal carcinoma in situ of left breast (principal)
CPT/HCPCS: 77062; G0279

== ENCOUNTER → 2023-10-27 09:09 | Outpatient (BNVA) | payer MEDICARE, SELFPAY | PROVIDERS: PCP Family Medicine; Visit Provider Nurse Practitioner Family | DX: L57.8 Other skin changes due to chronic exposure to nonionizing radiation (principal); D22.4 Melanocytic nevi of scalp and neck; L81.4 Other melanin hyperpigmentation; L57.0 Actinic keratosis; I87.2 Venous insufficiency (chronic) (peripheral) | CPT/HCPCS: 17000; 99214 ==

== ENCOUNTER → 2024-05-04 15:16 | Outpatient (BNVA) | payer MEDICARE, SELFPAY | PROVIDERS: PCP Family Medicine; Visit Provider Registered Nurse Neonatal Intensive Care | DX: R42 Dizziness and giddiness (principal) | CPT/HCPCS: 81000; 87086; 87184 ==

== ENCOUNTER → 2024-05-12 15:15 | Outpatient (BNVA) | payer MEDICARE, SELFPAY | PROVIDERS: PCP Family Medicine; Visit Provider Family Medicine | DX: I10 Essential (primary) hypertension (principal) | CPT/HCPCS: 80053; 80061; 85025 ==

== ENCOUNTER 2024-05-23 11:39 | Oncology outpatient (recurring) (ONCR) | payer MEDICARE, SELFPAY ==
[2024-05-23 12:07] LABS: Basophils # 0.1 10^3/uL (0.0-0.1); Basophils % 0.5 %; Eosinophils # 0.2 10^3/uL (0.0-0.8); Eosinophils % 1.7 %; Hematocrit 40.3 % (36-47); Lymphocytes # 2.3 10^3/uL (0.8-4.8); Lymphocytes % 23.3 %; Mean Corpuscular Hemoglobin 28.7 pg (27-33); Mean Corpuscular Volume 89.8 fl (85-98); Mean Platelet Volume 11.5 fL (7.4-10.4); Monocytes # 0.7 10^3/uL (0.2-0.9); Neutrophils # 6.54 10^3/uL (1.8-7.7); Neutrophils % 67.2 %; Nucleated Red Blood Cells % 0 %; Platelet Count 230 10^3/cmm (157-399); Red Blood Count 4.49 10^6/uL (3.85-5.65); Red Cell Distribution Width 14.3 % (12.1-15.1); White Blood Count 9.74 10^3/uL (3.29-11.43)
[2024-05-23 12:28] LABS: Albumin Level 4.2 g/dL (3.5-5.2); Chloride 101 mmol/L (98-107); Potassium 4.5 mmol/L (3.5-5.1); Sodium 139 mmol/L (136-145)
[2024-05-23 12:47] LABS: Alanine Aminotransferase 26 U/L (0-33); Alkaline Phosphatase 74 U/L (35-105); Anion Gap 17.5 (5-19); Aspartate Amino Transferase 22 U/L (0-32); Blood Urea Nitrogen 21 mg/dL (8-23); Calcium 8.9 mg/dL (8.5-10.5); Carbon Dioxide 25 mmol/L (22-29); Creatinine Clr Calc Pharmacy 66.1754; Globulin 2.8 g/dL (1.3-4.6); Glucose 111 mg/dL (65-115); Osmolality Calculated 292 mOsm/kg (285-295); Total Bilirubin 0.2 mg/dL (0.15-1.2)
== END 2024-06-03 23:59 | disposition home or self-care (01) ==
PROVIDERS: Nurse Practitioner Family; PCP Family Medicine; Visit Provider Internal Medicine Medical Oncology
DX: D05.12 Intraductal carcinoma in situ of left breast (principal); Z78.0 Asymptomatic menopausal state
CPT/HCPCS: 36415; 80053; 85025; 99213

== ENCOUNTER 2024-06-07 13:57 | Outpatient (CLI) | payer MEDICARE, SELFPAY ==
--- NOTE | 2024-06-07 13:30 | MM_ITS ---
WS: [id number] BILATERAL 3D TOMOSYNTHESIS DIGITAL DIAGNOSTIC MAMMOGRAPHY WITH CAD CLINICAL INFORMATION: Hx of breast CA HISTORY: LEFT breast cancer COMPARISON: 2022 TECHNIQUE: Bilateral CC, MLO, and ML views. FINDINGS: Scattered fibroglandular densities bilaterally. Prior LEFT lumpectomy with parenchymal fibrosis. Volu me loss LEFT breast. Similar to previous. Treatment-related changes LEFT breast. Vascular calcificati on. Stable intramammary lymph node LEFT breast. Ovoid asymmetric density central RIGHT breast best seen on the MLO view. Recommend RIGHT breast diagn ostic mammography with spot compression views and ultrasound if persistent. MM/[place] [id number] IMPRESSION: DENSITY: There are scattered areas of fibroglandular density. BI-RADS: 0 - Incomplete: Need additional imaging evaluation. FOLLOW UP: Need Additional Imaging Recommend RIGHT breast diagnostic mammography with spot compression views and ultrasound if persistent.
== END 2024-06-07 13:58 | disposition home or self-care (01) ==
LOC: RAD 13:58
PROVIDERS: PCP Family Medicine; Visit Provider Family Medicine
DX: D05.12 Intraductal carcinoma in situ of left breast (principal); N64.4 Mastodynia; R92.323 Mammographic fibroglandular density, bilateral breasts; N60.32 Fibrosclerosis of left breast; R92.1 Mammographic calcification found on diagnostic imaging of breast; N64.89 Other specified disorders of breast
CPT/HCPCS: 77062; G0279

== ENCOUNTER → 2024-07-01 14:43 | Outpatient (BNVA) | payer MEDICARE, SELFPAY | PROVIDERS: PCP Family Medicine; Visit Provider Registered Nurse Neonatal Intensive Care | DX: N39.0 Urinary tract infection, site not specified (principal); R39.9 Unspecified symptoms and signs involving the genitourinary system | CPT/HCPCS: 81000; 87086 ==

== ENCOUNTER → 2024-07-12 14:55 | Outpatient (BNVA) | payer MEDICARE, SELFPAY | PROVIDERS: PCP Family Medicine; Visit Provider Nurse Practitioner Family | DX: D48.5 Neoplasm of uncertain behavior of skin (principal); L57.8 Other skin changes due to chronic exposure to nonionizing radiation; D22.4 Melanocytic nevi of scalp and neck; L81.4 Other melanin hyperpigmentation; I87.2 Venous insufficiency (chronic) (peripheral); L57.0 Actinic keratosis | CPT/HCPCS: 11102; 17000; 99214 ==

== ENCOUNTER → 2024-07-27 07:54 | Outpatient (BNVA) | payer MEDICARE, SELFPAY | PROVIDERS: PCP Family Medicine; Visit Provider Dermatology | DX: C44.311 Basal cell carcinoma of skin of nose (principal); C44.319 Basal cell carcinoma of skin of other parts of face | CPT/HCPCS: 12053; 17311 ==

== ENCOUNTER → 2024-08-14 11:31 | Outpatient (BNVA) | payer MEDICARE, SELFPAY | PROVIDERS: PCP Family Medicine; Visit Provider Dermatology | DX: C44.311 Basal cell carcinoma of skin of nose (principal); Z48.817 Encounter for surgical aftercare following surgery on the skin and subcutaneous tissue; Z48.02 Encounter for removal of sutures | CPT/HCPCS: 99213 ==

== ENCOUNTER → 2024-09-05 11:32 | Outpatient (BNVA) | payer MEDICARE, SELFPAY | PROVIDERS: PCP Family Medicine; Visit Provider Dermatology | DX: C44.311 Basal cell carcinoma of skin of nose (principal); L90.5 Scar conditions and fibrosis of skin; Z48.817 Encounter for surgical aftercare following surgery on the skin and subcutaneous tissue | CPT/HCPCS: 99213 ==

== ENCOUNTER 2024-09-07 11:46 | Outpatient (CLI) | payer MEDICARE, SELFPAY ==
--- NOTE | 2024-09-07 12:30 | MM_ITS ---
WS: [id number] RIGHT 3D TOMOSYNTHESIS DIGITAL MAMMOGRAPHY WITH CAD CLINICAL INFORMATION: ABNORMAL MAMMO HISTORY: Additional views COMPARISON: 06/07/2024 TECHNIQUE: 3 views of the right breast were obtained. FINDINGS: Scattered fibroglandular densities of the right breast. Again seen is the small asymmetry at the cent ral RIGHT breast mid depth. This is persistent on the spot compression views and ultrasound is pendin g. ULTRASOUND BREAST RIGHT TECHNIQUE: Ultrasound right breast focused area of concern. CLINICAL INFORMATION: ABNORMAL MAMMO FINDINGS: Ultrasound RIGHT breast 11 to 12 o'clock position RIGHT breast 4 cm from the nipple. Dense underlying parenchymal tissue. Band of dense echogenic parenchymal tissue. No suspicious cystic or solid lesion s. No lesions to target for biopsy. Findings are benign. Recommend return to annual screening mammogr aphy. MM/MM diag RT tomosynthesis [id number] IMPRESSION: DENSITY: There are scattered areas of fibroglandular density. BI-RADS: 2 - Benign. FOLLOW UP: 1 Year Follow-up Recommend return to annual screening mammography.
== END 2024-09-07 11:47 | disposition home or self-care (01) ==
LOC: RAD 11:47
PROVIDERS: PCP Family Medicine; Visit Provider Family Medicine
DX: R92.8 Other abnormal and inconclusive findings on diagnostic imaging of breast (principal); R92.323 Mammographic fibroglandular density, bilateral breasts
CPT/HCPCS: 76642; 77061; G0279

== ENCOUNTER → 2024-11-08 16:21 | Outpatient (BNVA) | payer MEDICARE, SELFPAY | PROVIDERS: PCP Family Medicine; Visit Provider Registered Nurse Neonatal Intensive Care | DX: R39.9 Unspecified symptoms and signs involving the genitourinary system (principal) | CPT/HCPCS: 81000; 87086 ==

== ENCOUNTER 2024-11-17 12:40 | Oncology outpatient (recurring) (ONCR) | payer MEDICARE, SELFPAY ==
--- NOTE | 2024-11-17 13:00 | CT_ITS ---
WS: [id number] CT HEAD TECHNIQUE: Noncontrast CT of the head obtained from the skullbase to the vertex. CLINICAL INFORMATION: dementia COMPARISON: None. DLP: 1019.[address] scans at [facility] use at least one of these dose optimization techniques: automated exposure control; mA and/or kV adjustment per patient size (includes targeted exams where dose is matched to clinical indication); or iterative reconstruction. FINDINGS: No evidence of intracranial hemorrhage or mass effect. Ventricular system and basal cisterns are patent. Mild small vessel changes with mild parenchymal volume loss. No extra-axial fluid collections. No evidence of mass or mass effect. Slight sphenoid sinusitis with layering fluid. Mastoid air cells are well aerated. CT/CT head wo con* [id number] IMPRESSION: 1. No evidence of intracranial hemorrhage or mass effect. 2. Mild small vessel changes. Mild parenchymal volume loss. 3. Vascular calcification. 4. Sphenoid sinusitis. 5. No acute intracranial findings.
== END 2024-12-01 23:59 | disposition home or self-care (01) ==
LOC: RAD 12:43 → ONCMED 11-20 09:54
PROVIDERS: PCP Family Medicine; Visit Provider Family Medicine
DX: D05.12 Intraductal carcinoma in situ of left breast (principal); Z78.0 Asymptomatic menopausal state; C50.112 Malignant neoplasm of central portion of left female breast; Z17.0 Estrogen receptor positive status [ER+]; Z79.811 Long term (current) use of aromatase inhibitors; Z23 Encounter for immunization; F03.90 Unspecified dementia, unspecified severity, without behavioral disturbance, psychotic disturbance, mood disturbance, and anxiety
CPT/HCPCS: 70450

== ENCOUNTER → 2024-12-05 15:41 | Outpatient (BNVA) | payer MEDICARE, SELFPAY | PROVIDERS: PCP Family Medicine; Visit Provider Nurse Practitioner Family | DX: L85.3 Xerosis cutis (principal); L57.8 Other skin changes due to chronic exposure to nonionizing radiation; Z08 Encounter for follow-up examination after completed treatment for malignant neoplasm; Z85.828 Personal history of other malignant neoplasm of skin; D48.5 Neoplasm of uncertain behavior of skin; L57.0 Actinic keratosis | CPT/HCPCS: 11102; 17000; 99213 ==

== ENCOUNTER → 2025-01-02 07:54 | Outpatient (BNVA) | payer MEDICARE, SELFPAY | PROVIDERS: PCP Family Medicine; Visit Provider Dermatology | DX: C44.02 Squamous cell carcinoma of skin of lip (principal) | CPT/HCPCS: 13152; 17311 ==

== ENCOUNTER → 2025-01-04 14:08 | Outpatient (BNVA) | payer MEDICARE, SELFPAY | PROVIDERS: PCP Family Medicine; Visit Provider Podiatrist Foot & Ankle Surgery | DX: L60.3 Nail dystrophy (principal); M20.41 Other hammer toe(s) (acquired), right foot; M20.42 Other hammer toe(s) (acquired), left foot | CPT/HCPCS: 99203 ==

== ENCOUNTER → 2025-01-11 08:41 | Outpatient (BNVA) | payer MEDICARE, SELFPAY | PROVIDERS: PCP Family Medicine; Visit Provider Psychiatry & Neurology Neurology | DX: F03.90 Unspecified dementia, unspecified severity, without behavioral disturbance, psychotic disturbance, mood disturbance, and anxiety (principal); R41.3 Other amnesia; E55.9 Vitamin D deficiency, unspecified; I10 Essential (primary) hypertension; R53.1 Weakness; Z09 Encounter for follow-up examination after completed treatment for conditions other than malignant neoplasm; R29.818 Other symptoms and signs involving the nervous system | CPT/HCPCS: 0346U; 36415; 82306; 82542; 82607; 82746; 83520; 83735; 83921; 84439; 84443; 84481; 99203 ==

== ENCOUNTER 2025-01-26 16:45 | Oncology outpatient (recurring) (ONCR) | payer MEDICARE, SELFPAY ==
--- NOTE | 2025-01-24 14:37 | MR_ITS ---
WS: [id number] MRI BRAIN WITH AND WITHOUT CONTRAST HISTORY: UNSPECIFIED DEMENTIA/MEMORY LOSS COMPARISON: CT head 11/17/2024 TECHNIQUE: Multiplanar imaging performed through the brain with MultiHance 20 ml's IV. Normal diffusion imaging. Mild cerebral and cerebellar atrophy. Mild small vessel ischemic type changes. Cavernous malformation identified in the LEFT parietal cortex with complete hypointense hemosiderin rim measures 6.5 mm. No additional hemosiderin. Mild bilateral hippocampal atrophy. Ventricles and extra-axial spaces are normal. Clivus and pituitary gland are normal. Degenerative changes in the upper cervical spine. C2 anterolisthesis by 3 mm. Encroachment upon the upper cervical cord by C3. LEFT parietal cortex cavernous malformation slight enhancement. No venous angiomas. No intra-axial or extra-axial masses. Dural venous sinuses are normal. Paranasal sinuses: Well aerated with no significant disease. Mastoid air cells: Normal. Calvarium and scalp: Normal. MR/MR head wo/w con [id number] IMPRESSION: 1. No acute infarct. 2. Mild cerebral and cerebellar atrophy and small vessel disease. 3. LEFT parietal cortex cavernous malformation. 4. No venous angiomas. 5. No additional enhancing masses.
[2025-01-24] MEDS: gadobenate dimeglumine 20 mL vial IV (15:39)
--- NOTE | 2025-01-26 16:45 | USCV_ITS ---
January Stephanie Age: 84 Gender: F : 1940 Exam Date: 01/26/2025 16:38 Ordering Phys: Winston Strange MD Technologist: [facility] [place] [facility] [place]: balance disorder tds Risk Factors: Previous Vascular Surgery: Right Brachial BP: / Left Brachial BP: / Right Left Velocity (cm/s) Spectral Plaque Velocity (cm/s) Spectral Plaque Syst/Diast Broadening Syst/Diast Broadening 107.10/17.70 Prox CCA 110.50/ 20.60 75.60/ 15.50 Mid CCA 97.60 / 21.00 70.40/ 13.70 Distal CCA 97.20 / 22.90 42.60/ 13.30 Prox ICA 66.60 / 13.20 54.10/ 11.30 Mid ICA 63.70 / 18.80 97.80/ 26.10 Distal ICA 46.30 / 9.70 56.90 ECA 84.20 0.60 ICA/CCA 0.70 Antegrade Vertebral Antegrade 39.30/ 14.10 cm/s 54.30/ 15.90 cm/s Tri Subclavian Tri 106.0 221.7 0 0 FINDINGS Technically difficult study CONCLUSIONS Right ICA stenosis <50%. Mild atheromatous plaque right carotid bulb/ICA. Left ICA stenosis <50%. Mild atheromatous plaque left carotid bulb/ICA. Normal antegrade Doppler flow noted in the right vertebral artery. Normal antegrade Doppler flow noted in the left vertebral artery. Noah Ballard MD (Electronically Signed) Final Date: 29 January 2025 09:39 S
== END 2025-01-31 23:59 | disposition home or self-care (01) ==
LOC: RAD 01-27 00:01 → ONCMED 01-29 09:25
PROVIDERS: PCP Family Medicine; Visit Provider Psychiatry & Neurology Neurology
DX: D05.12 Intraductal carcinoma in situ of left breast (principal); Z78.0 Asymptomatic menopausal state; C50.112 Malignant neoplasm of central portion of left female breast; Z17.0 Estrogen receptor positive status [ER+]; Z79.811 Long term (current) use of aromatase inhibitors; Z23 Encounter for immunization; F03.90 Unspecified dementia, unspecified severity, without behavioral disturbance, psychotic disturbance, mood disturbance, and anxiety; R41.3 Other amnesia; R53.1 Weakness; Z09 Encounter for follow-up examination after completed treatment for conditions other than malignant neoplasm; R29.818 Other symptoms and signs involving the nervous system
CPT/HCPCS: 70553; 93880

== ENCOUNTER → 2025-02-02 15:27 | Outpatient (BNVA) | payer MEDICARE, SELFPAY | PROVIDERS: PCP Family Medicine; Visit Provider Emergency Medicine | DX: R39.9 Unspecified symptoms and signs involving the genitourinary system (principal) | CPT/HCPCS: 81000; 87086 ==

== ENCOUNTER 2025-05-23 11:02 | Oncology outpatient (recurring) (ONCR) | payer MEDICARE, SELFPAY ==
[2025-05-23 11:30] LABS: Hematocrit 42.3 % (36-47); Hemoglobin 13.20 g/dL (11.27-16.99); Mean Corpuscular HGB Conc 31.2 g/dL (30-55); Mean Corpuscular Hemoglobin 28.2 pg (27-33); Mean Corpuscular Volume 90.4 fl (85-98); Nucleated Red Blood Cells % 0 %; Platelet Count 227 10^3/cmm (157-399); Red Blood Count 4.68 10^6/uL (3.85-5.65); White Blood Count 7.80 10^3/uL (3.29-11.43)
[2025-05-23 11:51] LABS: Alanine Aminotransferase 14 U/L (0-33); Albumin Level 4.2 g/dL (3.5-5.2); Alkaline Phosphatase 85 U/L (35-105); Anion Gap 15.4 (5-19); Aspartate Amino Transferase 16 U/L (0-32); Blood Urea Nitrogen 24 mg/dL (8-23); Calcium 9.6 mg/dL (8.5-10.5); Carbon Dioxide 27 mmol/L (22-29); Chloride 101 mmol/L (98-107); Globulin 3.2 g/dL (1.3-4.6); Glucose 96 mg/dL (65-115); Osmolality Calculated 292 mOsm/kg (285-295); Potassium 4.4 mmol/L (3.5-5.1); Sodium 139 mmol/L (136-145); Total Protein 7.4 g/dL (6.6-8.7)
== END 2025-06-03 23:59 | disposition home or self-care (01) ==
PROVIDERS: PCP Family Medicine; Visit Provider Nurse Practitioner Family
DX: Z08 Encounter for follow-up examination after completed treatment for malignant neoplasm (principal); Z86.000 Personal history of in-situ neoplasm of breast; E55.9 Vitamin D deficiency, unspecified; D05.12 Intraductal carcinoma in situ of left breast; Z92.3 Personal history of irradiation
CPT/HCPCS: 36415; 80053; 82306; 85025; 99214

== ENCOUNTER → 2025-06-18 14:20 | Outpatient (BNVA) | payer MEDICARE, SELFPAY | PROVIDERS: PCP Family Medicine; Visit Provider Nurse Practitioner Family | DX: L82.1 Other seborrheic keratosis (principal); L57.8 Other skin changes due to chronic exposure to nonionizing radiation; L85.3 Xerosis cutis; Z08 Encounter for follow-up examination after completed treatment for malignant neoplasm; Z85.828 Personal history of other malignant neoplasm of skin; L57.0 Actinic keratosis | CPT/HCPCS: 17000; 99213 ==

== ENCOUNTER 2025-09-17 12:38 | Outpatient (CLI) | payer MEDICARE, SELFPAY ==
--- NOTE | 2025-09-17 13:00 | MM_ITS ---
WS: [id number] BILATERAL 3D TOMOSYNTHESIS DIGITAL DIAGNOSTIC MAMMOGRAPHY WITH CAD CLINICAL INFORMATION: surveillance HISTORY: LEFT breast cancer COMPARISON: 2023 TECHNIQUE: Bilateral CC, MLO, and ML views. FINDINGS: Scattered fibroglandular densities bilaterally. Lumpectomy with parenchymal fibrosis LEFT breast. Associated volume loss. Treatment-related changes LEFT breast. Vascular calcification. No suspicious focal mass, asymmetry, calcifications, or architectural distortion. No evidence of malignancy. MM/MM diag tomosynthesis [id number] IMPRESSION: DENSITY: There are scattered areas of fibroglandular density. BI-RADS: 2 - Benign. FOLLOW UP: 1 Year Follow-up Recommend return to annual diagnostic mammography.
--- NOTE | 2025-09-17 13:30 | XR_ITS ---
WS: [id number] DEXA (DUAL ENERGY X-RAY ABSORPTIOMETRY) Bone mineral density was performed using a [employer] machine. HISTORY: osteopenia COMPARISON: 06/30/2021 Lumbar spine BMD (L1-L4): 1.078 g/cm2 T score: -0.8 Z score: 0.4 Total hip BMD: Left: 0.872 g/cm2. T score: -1.1 Z score: 0.7 Right: 0.834 g/cm2. T score: -1.4 Z score: 0.4 10 year probability of a major osteoporotic fracture is 22.1%. Compared to the prior study from 06/30/2021. Lumbar spine bone mineral density has increased by 5.4%. Bilateral hips bone mineral density has increased by 5.6%. XR/XR DEXA axial skeleton* [id number] IMPRESSION: OSTEOPENIA based upon the WHO classification for females. Significant increase in bone mineral density within both the lumbar spine and h ips since the prior study.
== END 2025-09-17 12:39 | disposition home or self-care (01) ==
LOC: RAD 12:39
PROVIDERS: PCP Family Medicine; Visit Provider Nurse Practitioner Family
DX: D05.12 Intraductal carcinoma in situ of left breast (principal); Z78.0 Asymptomatic menopausal state; M85.80 Other specified disorders of bone density and structure, unspecified site
CPT/HCPCS: 77062; 77080; G0279